=== PATIENT | female | born 1995 | race Caucasian/White ===

== ENCOUNTER → 2017-03-25 09:51 | Outpatient (CLI) | payer BC, SELFPAY ==
[2017-03-25 11:21] LABS: Hematocrit 33.6 % (37-47); Hemoglobin 10.8 g/dl (12.0-15.0); Mean Corp Hgb Conc 32.1 g/gl (32-36); Mean Corpuscular Hgb 28.1 pg (27.0-32.0); Mean Corpuscular Volume 87.5 fL (81-99); Platelet Count 318 K/mm3 (150-450); RBC Distribution Width CV 12.7 % (11.6-14.6); RBC Distribution Width SD 40.9 fl (35.1-43.9); Red Blood Count 3.84 M/mm3 (4.2-5.4)
[2017-03-25 11:26] LABS: Scan Indicated on CBC? Y/N NO
[2017-03-25 11:42] LABS: Glucose Challenge Gest 1H 50g 95 mg/dL (70-140)
== END ==
LOC: MFPLAB 09:52 → WOBLAB 12:15
PROVIDERS: Visit Provider Obstetrics & Gynecology
DX: Z34.83 Encounter for supervision of other normal pregnancy, third trimester (principal)
CPT/HCPCS: 36415; 82950; 85027

== ENCOUNTER 2017-04-18 13:55 | Outpatient (CLI) | payer BC, SELFPAY ==
[2017-04-18 14:13] VITALS: BMI 20.2
--- NOTE | 2017-04-19 07:49 | OB.TRI.NOTE ---
History of Present Illness Date of Service: 04/18/17 Was patient seen by the physician?: No Reason For Visit: R/O LABOR Date of Service: 04/18/17 Final DINA: 06/17/17 Gestational age: 31 Weeks and 4 Days Home Medications Medication Instructions Recorded Tablet 2 tab PO DAILY 04/18/17 Allergies No Known Allergies Allergy (Verified 04/18/17 14:15) Physical Exam General: Alert, Oriented x3, Cooperative, No apparent distress Cardiovascular: Regular rate, Regular Rhythm Lungs: Clear to auscultation, Normal air movement Abdomen: Soft, Non Tender, Non-Distended, Gravid, Appropriate for Gestational Age Extremities:: No edema Estimated gestational size: Appropriate for gestational size NST - FHR Rate Baby A Baseline: 130 Variability:: Moderate Accelerations:: 15 x 15 Decelerations:: None NST Reactive:: Yes FHR Category:: Category I Uterine Activity:: none Impression/Plan Observed for epigastric pain not taking Tums. Vague lower abdominal pressure. No contractions. NST reassuring. Sent home.
== END 2017-04-18 15:35 | disposition home or self-care (01) ==
LOC: WPOUT 14:03 → WP 14:05
PROVIDERS: Visit Provider Obstetrics & Gynecology
DX: O26.893 Other specified pregnancy related conditions, third trimester (principal); R10.13 Epigastric pain; Z3A.31 31 weeks gestation of pregnancy
CPT/HCPCS: 59025; 59050; 99218; G0378

== ENCOUNTER → 2017-05-20 10:33 | Outpatient (CLI) | payer BC, SELFPAY | PROVIDERS: Visit Provider Obstetrics & Gynecology | DX: Z36.85 Encounter for antenatal screening for Streptococcus B (principal) | CPT/HCPCS: 87081 ==

== ENCOUNTER 2017-06-15 23:42 | Inpatient (IN) | payer BC, MEDICAID, SELFPAY ==
[2017-06-16] VITALS (19 sets, daily range): BP systolic 99–123; BP diastolic 56–77; PULSE 86–107; RESP 15–26; TEMP 36.8–37.8; O2SAT 95–99; BMI 22.8
--- NOTE | 2017-06-16 | PLAC_PTH ---
PATIENT: JENNY DASH LOC: [facility] U#:[id number] AGE/SX: ROOM: WP017 RE06/15/[address]: Dr. Tyesha Cristina MD : 1995 BED: 1 DIS: 06/19/2017 SPEC #: [id number] RECD: 06/17/17 11:53 STATUS: HEBER RERay #: [id number] PATRICIA: 06/16/17 00:[address]: Tyesha Cristina DEPT: SURGICAL PATHOLOGY RECD BY: Ronnie Renner ENTERED: 06/17/17 11:53 SP TYPE: PLACENTA OT DR: No Primary Care Phys Tissues: Placenta, NOS Procedures: Surgery Specimen Level V HEADER OPERATION: Primary section PRE-OP DIAGNOSIS: Cephalopelvic disproportion TISSUE SUBMITTED: Placenta MICROSCOPIC DIAGNOSIS Garcia placenta (374 gm): Umbilical cord ? trivascular with focal acute funisitis. Placental membranes ? acute deciduitis and acute chorionitis. Placental disc ? acute inflammation of superficial placental vessels, Kadi-Terrence change and increased intraparenchymal fibrin plaques. AM:kenneth 06/21/17 MICROSCOPIC DESCRIPTION Slides are reviewed. GROSS DESCRIPTION SPECIMEN: PLACENTA / CLINICAL INFORMATION: A. Weight: 3.243 kg B. Gestational Age: 39 weeks C. Sex: Female PLACENTAL WEIGHT (POST FIXATION): 374 gm PLACENTAL DIMENSIONS: 15 x 14 x 2.5 cm PLACENTAL SHAPE: Usual ovoid PLACENTAL WEIGHT FOR GESTATIONAL AGE: Within 10-99th percentile MEMBRANES - Present A. Insertion: Marginal B. Site of rupture from edge: Distance of the rupture cannot be assessed due to fragmented nature of the membranes. C. Color of membrane: Rodrigues-san and fragmented. The detached fragment of membrane is also noted in the container. D. Abnormalities: None UMBILICAL CORD - Present A. Color: Rodrigues-san B. Insertion: Paracentral C. Length: 24 cm D. Diameter: 1.3 cm E. Number of vessels: Three F. Abnormalities: None PLACENTAL DISC - Present A. Color of surface: Rodrigues-san B. surface abnormalities: None C. Maternal cotyledons: Intact with minimal tears D. Attached retro placental clot: No clot E. Cut surface: Dark red and spongy F. Lesions: None G. Separate clot: Absent SECTIONS SUBMITTED: 1. Membrane roll 2. Cord, maternal end 3. Cord, end 4. Placental disc, and maternal surfaces 5. Placental disc, and maternal surfaces 6. Placental disc, and maternal surfaces SJ:kenneth 06/18/17 TC:2 CPT: 87665
[2017-06-16] MEDS: Lactated Ringers 1,000 ML 50 ML IV ×4 (00:07→07:43)
[2017-06-16 00:22] LABS: Hematocrit 31.5 % (37-47); Hemoglobin 9.8 g/dl (12.0-15.0); Mean Corp Hgb Conc 31.1 g/gl (32-36); Mean Corpuscular Hgb 24.4 pg (27.0-32.0); Mean Corpuscular Volume 78.4 fL (81-99); Mean Platelet Vol. 9.7 fl (6.2-12.0); Platelet Count 366 K/mm3 (150-450); RBC Distribution Width SD 39.1 fl (35.1-43.9); Red Blood Count 4.02 M/mm3 (4.2-5.4); White Blood Count 15.6 K/mm3 (4.4-11.0)
[2017-06-16 00:25] LABS: Scan Indicated on CBC? Y/N NO
[2017-06-16] MEDS: fentaNYL-bupivacaine (epidural) 100 ML BAG EPIDURAL (01:42)
[2017-06-16] MEDS: Ondansetron 4 MG/2 ML Vial IV (03:10)
--- NOTE | 2017-06-16 07:19 | PCM.PN.BLA ---
Progress Note LABOR PROGRESS NOTE Comfortable w/ epidural. Complete at 0630 am / +2 Pushing. A/P: term IUP Progress to complete after AROM. Anticipate
--- NOTE | 2017-06-16 07:54 | NURSING ---
Dr. Saeed notified at 0043 by [facility] RN that patient would like an epidural. Dr. Saeed then notified again verbally by this RN at 0115. Dr. Saeed upset and states that she was not notified directly by this RN. Dr. Saeed arrived to room at 0119.
[2017-06-16] MEDS: Oxytocin 30 units/NS 500 ml 30 UNITS/500 ML IV.SOLN IV (09:28)
--- NOTE | 2017-06-16 10:28 | PCM.PN.BLA ---
Progress Note LABOR PROGRESS NOTE Complete since 630. and pushing since 644 (approx) but with UCs as widely spaced as a 7 mins. AVSS Pitocin augmentation added EFM category I tracing. 130-140s avg variability accels. UCs q 3-8 mins. C and P A/P: term IUP. AROM. Pitocin augmentation started to inc frequency of Ucs. Continue pushing. Watch progress, descent. Anticipate
--- NOTE | 2017-06-16 12:08 | PCM.PN.BLA ---
Progress Note LABOR PROGRESS NOTE Complete since 06 pushing off and on for 4-5 hrs NO DESCENT. Direct OP. Palpable maternal coccyx on exam. Still able to insert FT anterior to vtx despite pushing / resting after complete for 4-5 hrs. A/P: advised c section delivery indicated for failure to descend. OB aware, anesthesia and BUCKLE WIRE INSERTER aware.
--- NOTE | 2017-06-16 12:11 | PN_ITS ---
Progress Note LABOR PROGRESS NOTE Complete since 06 pushing off and on for 4-5 hrs NO DESCENT. Direct OP. Palpable maternal coccyx on exam. Still able to insert FT anterior to vtx despite pushing / resting after complete for 4-5 hrs. A/P: advised c section delivery indicated for failure to descend. OB aware, anesthesia and [employer] aware.
--- NOTE | 2017-06-16 12:26 | PCM.DCCSEC ---
Discharge Diet: No Restrictions Discharge Activity: May not drive while taking narcotic pain medications., May Shower, May Take a Tub Bath Return to work on:: 08/02/17 May resume sexual activity in: 4-6 weeks Lifting Restrictions: 20 pounds Additional Activity Instructions:: Nothing in the vagina for 4-6 weeks. You may return to work/school in 6 weeks. Change Dressing in (Days):: 4 Remove Dressing in (days):: 4 Cleanse incision/area with: Soap & Water, Keep Dressing Clean & Dry Additional Instructions: If you experience any of the following, contact your healthcare provider. Bleeding that soaks a pad every hour for 2 hours Fever 100.4 or higher Unrelieved incision or abdominal pain Swelling, redness, discharge or bleeding from your incision Problems urinating (including inability to urinate or burning while urinating). Visual changes Severe headache Flu-like symptoms Pain or redness in one of both of your breasts Pain, warmth, tenderness or swelling in your legs, especially the calf area Frequent nausea and vomiting Symptoms of depression or anxiety If you experience any of the following, call 911 or go to the nearest Emergency Room. Chest pain Problems breathing Seizure activity Partial or complete paralysis of a body part, slurred speech, weakness or drooping of the face, or a sudden inability to walk or hold your balance Allergies/Adverse Reactions: Allergies No Known Allergies Allergy (Verified 04/18/17 14:15) Medications to take at Discharge Tablet 2 tab PO DAILY 04/18/17 Acetaminophen [Tylenol Tablet] 325 - 650 mg PO Q4H PRN PRN tablet 06/16/17 Docusate Sodium [Colace] 100 mg PO BID #60 cap 06/16/17 Naproxen [Naprosyn] 250 - 500 mg PO TID PRN #30 tab 06/16/17 Oxycodone [Oxyir] 5 - 10 mg PO Q6H PRN PRN 7 Days #28 tablet 06/16/17 The following prescriptions were given: Oxycodone [Oxyir] 5 - 10 mg PO Q6H PRN PRN 7 Days #28 tablet PRN Reason: Mod-Severe Pain (4-12/08) Docusate Sodium [Colace] 100 mg PO BID #60 cap Naproxen [Naprosyn] 250 - 500 mg PO TID PRN #30 tab PRN Reason: Mild-Mod Pain (1-5/10) Orders to be completed after discharge: Electric breast pump Time Frame: 1 Year, Location: None Selected Follow-Up: Call to make an appointment with your doctor for an incision check in 1-2 weeks. You will also need a 6 week post- follow up appointment. Please Follow Up With: Tyesha Cristina MD - [phone] When: Call to make an appointment for an incision check in 2 weeks. Primary Care Physician: Care Physician,No Primary [Primary Care Provider] -
[2017-06-16] MEDS: Sodium Citrate/Citric Acid 30 ML UDC PO (12:27)
--- NOTE | 2017-06-16 12:31 | DCINST_ITS ---
Discharge Diet: No Restrictions Discharge Activity: May not drive while taking narcotic pain medications., May Shower, May Take a Tub Bath Return to work on:: 08/02/17 May resume sexual activity in: 4-6 weeks Lifting Restrictions: 20 pounds Additional Activity Instructions:: Nothing in the vagina for 4-6 weeks. You may return to work/school in 6 weeks. Change Dressing in (Days):: 4 Remove Dressing in (days):: 4 Cleanse incision/area with: Soap & Water, Keep Dressing Clean & Dry Additional Instructions: If you experience any of the following, contact your healthcare provider. * Bleeding that soaks a pad every hour for 2 hours * Fever 100.4 or higher * Unrelieved incision or abdominal pain * Swelling, redness, discharge or bleeding from your incision * Problems urinating (including inability to urinate or burning while urinating) . * Visual changes * Severe headache * Flu-like symptoms * Pain or redness in one of both of your breasts * Pain, warmth, tenderness or swelling in your legs, especially the calf area * Frequent nausea and vomiting * Symptoms of depression or anxiety If you experience any of the following, call 911 or go to the nearest Emergency Room. * Chest pain * Problems breathing * Seizure activity * Partial or complete paralysis of a body part, slurred speech, weakness or drooping of the face, or a sudden inability to walk or hold your balance Allergies/Adverse Reactions: Allergies No Known Allergies Allergy (Verified 04/18/17 14:15) Medications to take at Discharge Tablet 2 tab PO DAILY 04/18/17 Acetaminophen [Tylenol Tablet] 325 - 650 mg PO Q4H PRN PRN tablet 06/16/17 Docusate Sodium [Colace] 100 mg PO BID #60 cap 06/16/17 Naproxen [Naprosyn] 250 - 500 mg PO TID PRN #30 tab 06/16/17 Oxycodone [Oxyir] 5 - 10 mg PO Q6H PRN PRN 7 Days #28 tablet 06/16/17 The following prescriptions were given: Oxycodone [Oxyir] 5 - 10 mg PO Q6H PRN PRN 7 Days #28 tablet PRN Reason: Mod-Severe Pain (-12/08) Docusate Sodium [Colace] 100 mg PO BID #60 cap Naproxen [Naprosyn] 250 - 500 mg PO TID PRN #30 tab PRN Reason: Mild-Mod Pain (1-5/10) Orders to be completed after discharge: Electric breast pump Time Frame: 1 Year, Location: None Selected Follow-Up: Call to make an appointment with your doctor for an incision check in 1-2 weeks. You will also need a 6 week post- follow up appointment. Please Follow Up With: Tyesha Cristina MD - [phone] When: Call to make an appointment for an incision check in 2 weeks. Primary Care Physician: Care Physician,No Primary [Primary Care Provider] -
[2017-06-16] MEDS: Oxytocin 30 units/NS 500 ml 30 UNITS/500 ML IV.SOLN 167 UNITS IV (12:46)
--- NOTE | 2017-06-16 13:23 | PCM.OP.BLANK ---
Operative Report Date of Procedure: 06/16/17 PROCEDURE: PRIMARY C SECTION Preoperative diagnosis: 39 6/7 wk EGA Cephalopelvic disproportion Postop diagnosis: 39 6/7 wk EGA Cephalopelvic disproportion Direct OP, deeply wedged into maternal pelvis Anesthesia: Epidural per Gabby Anderson CRNA then General anesthesia Surgeon: Tyseha Cristina MD Health Inspector Food: JENNIFER Ramirez EBL: 600 cc Complications: none Drains: Rutledge draining clear yellow urine Fluids: replacement LR Findings: At amniotomy, clear fluid was noted. Garcia viable female VTX presentation, deeply wedged direct OP into maternal pelvis. Apgars 2/8/9, Baby weight: pending. There were normal appearing uterus, fallopian tubes and ovaries bilaterally. PATH: Routine cord gases Narrative account: After the risks, benefits and alternatives of the procedure were reviewed with the patient , informed consent was obtained. The patient was taken to the Operating room with an IV running, a Rutledge catheter and epidural catheter in place. Her labor epidural was dosed to surgical levels. She was placed in dorsal supine position with leftward displacement of the uterus , briefly frog-legged for vaginal vault prep (in labor, ROM) under sterile technique, and then repositioned again to dorsal supine position with leftward displacement of the uterus, and prepped and draped in the usual sterile fashion. Once the epidural was deemed adequate, a Pfannenstiel skin incision was created using the knife . The incision was carried down to the rectus fascia using the knife. The fascia was nicked in the midline. The fascial incision was extended bilaterally using curved Mosquera scissors. The superior aspect of the fascial incision was grasped with Nallely clamps and tented up and the underlying rectus abdominal muscles were dissected free. In a similar manner, the inferior aspect of the facial incision was grasped with Nallely clamps tented up and the underlying rectus abdominal muscles were dissected free. The rectus abdominis muscles were by blunt and sharp dissection . The peritoneum was identified and entered by blunt dissection. The peritoneal incision was then extended inferiorly and superiorly using Metzenbaum scissors. The peritoneum was stretched laterally and a bladder blade was inserted. The uterine incision was then created using Metzenbaum scissors.The uterine incision was extended by blunt dissection in a caudad- cephalad orientation using the jig grinder set up operator's fingertips. Clear fluid was noted at amniotomy. The vertex was deeply wedged into the maternal pelvis. Pressure was applied from below and an attempt was made to deliver the vtx through the incision but the neck would not flex. An attempt was made again from the contralateral side of the operating table. The baby's shoulders were pushed up and the baby's shoulders rotated slightly Nitrous was given in an attempt to relax the uterus, and the patient was then give general anesthesia. The suction was broken, releasing the VTX from the pelvis and additional room was then created in the abdomen by dividing the R rectus abdominis muscle by Bandage scissors. The VTX was then ultimately delivered. The baby had poor tone, no respiratory effort. The cord was clamped x two and cut and was quickly passed off to the nurse awaiting delivery and to Dr. Miranda present for delivery. The umbilical cord was doubly clamped for later cord gas and cord blood collection as indicated. The placenta was then delivered. The uterus was exteriorized and cleared of clots and debris . The uterine incision was repaired with 1 Vicryl in a running locked fashion. A second imbricating layer was then placed, using 1 Monocryl in running nonlocked fashion. There was a small hematoma extending at the R uterine angle. this area was oversewn with a figure of 8 stitch of 1 Vicryl as needed for hemostasis and to stabilize the hematoma. The hematoma then remained soft and excellent hemostasis was noted. The uterus, fallopian tubes and ovaries were then inspected and returned to the abdominal cavity. The gutters were cleared of clots and debris. The uterine incision and fallopian tubes were again inspected. Excellent hemostasis was noted. The pelvis and abdomen were copiously irrigated. The incision sprayed with Micah. The rectus abdominis and peritoneal edges were reapproximated in the midline with interrupted vertical mattress stitches of 1 Vicryl . The R rectus abdominis muscle was repaired with a series of figure of eight and mattress stitches of 1-0 vicryl. Excellent hemostasis was noted. Excellent hemostasis was noted at the subfascial space The layer was sprayed with Micah at the inferior aspect. The fascia was closed in a running nonlocked fashion with strattofix suture. The Subcutaneous fatty tissue was Bovie cauterized as needed for hemostasis. This layer was then reapproximated with a nonlocked running 3-0 Vicryl. The skin edges were closed in a Subcuticular stitch of 4-0 Monocryl. The incision was cleansed. Seri-strips, and a sterile dressing (Mepilex) were applied. The patient was then transferred to the recovery room bed in stable condition after tolerating the procedure well. Sponge, lap, needle and instrument counts correct times two. Medications given preop and intraoperatively included: Ancef two grams IV given tonsorial artist to the operating room. The patient also received Pitocin given IV after cord clamp, and Toradol 30 mg IV after cord clamp. For a complete listing of medications given preop and intraoperatively, please see the anesthesia record.
--- NOTE | 2017-06-16 13:26 | CHAPLAIN ---
responded to rapid response for this patient; RR was called off as this shipping/receiving clerk approached the WP;
--- NOTE | 2017-06-16 13:34 | OP.PCM_ITS ---
Operative Report Date of Procedure: 06/16/17 PROCEDURE: PRIMARY C SECTION Preoperative diagnosis: 39 6/7 wk EGA Cephalopelvic disproportion Postop diagnosis: 39 6/7 wk EGA Cephalopelvic disproportion Direct OP, deeply wedged into maternal pelvis Anesthesia: Epidural per Gabby Anderson CRNA then General anesthesia Surgeon: Tyesha Cristina MD Release Of Information Specialist: JENNIFER Ramirez EBL: 600 cc Complications: none Drains: Rutledge draining clear yellow urine Fluids: replacement LR Findings: At amniotomy, clear fluid was noted. Garcia viable female VTX presentation, deeply wedged direct OP into maternal pelvis. Apgars 2/8/9, Baby weight: pending. There were normal appearing uterus, fallopian tubes and ovaries bilaterally. PATH: Routine cord gases Narrative account: After the risks, benefits and alternatives of the procedure were reviewed with the patient , informed consent was obtained. The patient was taken to the Operating room with an IV running, a Rutledge catheter and epidural catheter in place. Her labor epidural was dosed to surgical levels. She was placed in dorsal supine position with leftward displacement of the uterus , briefly frog- legged for vaginal vault prep (in labor, ROM) under sterile technique, and then repositioned again to dorsal supine position with leftward displacement of the uterus, and prepped and draped in the usual sterile fashion. Once the epidural was deemed adequate, a Pfannenstiel skin incision was created using the knife . The incision was carried down to the rectus fascia using the knife. The fascia was nicked in the midline. The fascial incision was extended bilaterally using curved Mosquera scissors. The superior aspect of the fascial incision was grasped with Nallely clamps and tented up and the underlying rectus abdominal muscles were dissected free. In a similar manner, the inferior aspect of the facial incision was grasped with Nallely clamps tented up and the underlying rectus abdominal muscles were dissected free. The rectus abdominis muscles were by blunt and sharp dissection . The peritoneum was identified and entered by blunt dissection. The peritoneal incision was then extended inferiorly and superiorly using Metzenbaum scissors. The peritoneum was stretched laterally and a bladder blade was inserted. The uterine incision was then created using Metzenbaum scissors.The uterine incision was extended by blunt dissection in a caudad- cephalad orientation using the dye house wheel operator's fingertips. Clear fluid was noted at amniotomy. The vertex was deeply wedged into the maternal pelvis. Pressure was applied from below and an attempt was made to deliver the vtx through the incision but the neck would not flex. An attempt was made again from the contralateral side of the operating table. The baby's shoulders were pushed up and the baby's shoulders rotated slightly Nitrous was given in an attempt to relax the uterus, and the patient was then give general anesthesia. The suction was broken, releasing the VTX from the pelvis and additional room was then created in the abdomen by dividing the R rectus abdominis muscle by Bandage scissors. The VTX was then ultimately delivered. The baby had poor tone, no respiratory effort. The cord was clamped x two and cut and was quickly passed off to the nurse awaiting delivery and to Dr. Miranda present for delivery. The umbilical cord was doubly clamped for later cord gas and cord blood collection as indicated. The placenta was then delivered. The uterus was exteriorized and cleared of clots and debris . The uterine incision was repaired with 1 Vicryl in a running locked fashion. A second imbricating layer was then placed, using 1 Monocryl in running nonlocked fashion. There was a small hematoma extending at the R uterine angle. this area was oversewn with a figure of 8 stitch of 1 Vicryl as needed for hemostasis and to stabilize the hematoma. The hematoma then remained soft and excellent hemostasis was noted. The uterus, fallopian tubes and ovaries were then inspected and returned to the abdominal cavity. The gutters were cleared of clots and debris. The uterine incision and fallopian tubes were again inspected. Excellent hemostasis was noted. The pelvis and abdomen were copiously irrigated. The incision sprayed with Micah. The rectus abdominis and peritoneal edges were reapproximated in the midline with interrupted vertical mattress stitches of 1 Vicryl . The R rectus abdominis muscle was repaired with a series of figure of eight and mattress stitches of 1-0 vicryl. Excellent hemostasis was noted. Excellent hemostasis was noted at the subfascial space The layer was sprayed with Micah at the inferior aspect. The fascia was closed in a running nonlocked fashion with strattofix suture. The Subcutaneous fatty tissue was Bovie cauterized as needed for hemostasis. This layer was then reapproximated with a nonlocked running 3-0 Vicryl. The skin edges were closed in a Subcuticular stitch of 4-0 Monocryl. The incision was cleansed. Seri-strips , and a sterile dressing (Mepilex) were applied. The patient was then transferred to the recovery room bed in stable condition after tolerating the procedure well. Sponge, lap, needle and instrument counts correct times two. Medications given preop and intraoperatively included: Ancef two grams IV given inspector repairer sandstone to the operating room. The patient also received Pitocin given IV after cord clamp, and Toradol 30 mg IV after cord clamp. For a complete listing of medications given preop and intraoperatively, please see the anesthesia record.
[2017-06-16] MEDS: Ketorolac 30 MG/ML Syringe IV ×2 (14:10→20:15)
[2017-06-16] MEDS: Lactated Ringers 1,000 ML 100 ML IV (15:40)
[2017-06-17] VITALS (8 sets, daily range): BP systolic 95–118; BP diastolic 51–69; PULSE 79–111; RESP 15–18; TEMP 36.8–37.3; O2SAT 97–100
[2017-06-17] MEDS: Lactated Ringers 1,000 ML 100 ML IV (00:40)
[2017-06-17] MEDS: Ketorolac 30 MG/ML Syringe IV ×4 (02:23→20:14)
[2017-06-17 04:44] LABS: Hematocrit 24.4 % (37-47); Hemoglobin 7.6 g/dl (12.0-15.0); Mean Corp Hgb Conc 31.1 g/gl (32-36); Mean Corpuscular Hgb 24.2 pg (27.0-32.0); Mean Corpuscular Volume 77.7 fL (81-99); Platelet Count 266 K/mm3 (150-450); RBC Distribution Width CV 14.3 % (11.6-14.6); RBC Distribution Width SD 38.8 fl (35.1-43.9); Red Blood Count 3.14 M/mm3 (4.2-5.4); White Blood Count 16.3 K/mm3 (4.4-11.0)
[2017-06-17 04:46] LABS: Scan Indicated on CBC? Y/N NO
--- NOTE | 2017-06-17 07:46 | PCM.PN.OB ---
Subjective: POD#1 Primary C section under epidural converted to general anesthesia Doing OK. Breast feeding. Pain control adequate. No concerns voiced. Objective: Sitting semirecumbent in bed. Holding baby. Nursing. Urine concentrated appearance. - Physical Exam General: Alert, Oriented x3, Cooperative, No apparent distress HEENT: Atraumatic Neck: Supple Abdomen: Soft - Uterus minimally tender consistent with postop status, at 3 cm inferior to umbilicus Extremities: No clubbing, No cyanosis, No edema Skin: Incision - Meiplex dressing CDI. no shadow drainage Neurological: Cranial nerves II-XII grossly intact Psych/Mental Status: Normal Affect Vital Signs Temp Pulse Resp BP Pulse Ox 98.9 F 79 16 95/51 L 98 06/17/ 04:00 06/17/17 04:00 06/17/17 04:00 06/17/17 00:00 06/17/17 04:00 Oxygen Delivery Method Room Air Weight: 66.224 kg Body Mass Index (BMI) 22.8 Intake and Output for Last 24 Hours 06/15/18 18/18 18 23:59 23:59 23:59 Intake Total 4969 / 4969 800 / 800 Output Total 1725 / 1725 500 / 500 Balance 3244 / 3244 300 / 300 Laboratory Tests Past 24 Hrs 06/17/17 04:00 WBC 16.3 H RBC 3.14 L Hgb 7.6 L Hct 24.4 L MCV 77.7 L MCH 24.2 L MCHC 31.1 L RDW 14.3 RDW Differential 38.8 Plt Count 266 MPV 10.0 Medical Necessity - Tobacco Use Smoking Status: Never smoker Assessment/Plan POD#1 Primary C section. CPD. Stable postop. Increase diet and activity as tolerated. May shower. Begin po meds, including iron for anemic. D/C garcia for voiding trial Iron deficiency anemia prior to delivery. Superimposed acute blood loss anemia. VSS Will recheck CBC am POD#2 Begin iron bid. Stool softeners. Continue care.
[2017-06-17] MEDS: Ferrous Sulfate 325 MG Tablet PO ×2 (08:19→17:45)
[2017-06-17] MEDS: 0.9% Saline Lock 10 ML Syringe IV ×4 (10:54→20:20)
[2017-06-17] MEDS: Prenatal Vits Tablet 1 TABLET PO (12:43)
[2017-06-17] MEDS: oxyCODONE 5 MG Tablet PO ×2 (18:33→22:25)
[2017-06-17] MEDS: Ondansetron 4 MG/2 ML Vial IV (20:14)
[2017-06-18 02:00] VITALS: BP 105/58; PULSE 84; RESP 17; TEMP 37.2; O2SAT 99
[2017-06-18] MEDS: 0.9% Saline Lock 10 ML Syringe IV ×3 (02:01→14:41)
[2017-06-18] MEDS: Ketorolac 30 MG/ML Syringe IV ×3 (02:01→14:40)
[2017-06-18] MEDS: oxyCODONE 5 MG Tablet PO ×3 (06:03→22:23)
[2017-06-18 06:36] LABS: Hemoglobin 7.7 g/dl (12.0-15.0); Mean Corp Hgb Conc 30.8 g/gl (32-36); Mean Corpuscular Hgb 24.4 pg (27.0-32.0); Mean Corpuscular Volume 79.4 fL (81-99); Mean Platelet Vol. 9.4 fl (6.2-12.0); Platelet Count 280 K/mm3 (150-450); RBC Distribution Width CV 14.6 % (11.6-14.6); RBC Distribution Width SD 40.1 fl (35.1-43.9); Red Blood Count 3.15 M/mm3 (4.2-5.4); White Blood Count 13.9 K/mm3 (4.4-11.0)
[2017-06-18 06:45] LABS: Scan Indicated on CBC? Y/N NO
[2017-06-18] MEDS: Ferrous Sulfate 325 MG Tablet PO ×2 (07:56→16:22)
--- NOTE | 2017-06-18 07:57 | PCM.PN.OB ---
Subjective: POD#2 Primary C/S for CPD. Doing OK. tired. Baby nursing and up a lot at night. Baby under bili lights. Pt's mother planning to stay with her after dischg and will need FMLA note completed. She is to bring in form either here to hospital or to [facility] for completion. pain control OK. Able to go to bathroom ok after catheter removed. - Physical Exam General: Alert, Oriented x3, Cooperative, No apparent distress HEENT: Atraumatic Neck: Supple Abdomen: Soft - Fundus firm , tender c/w postop status , and at approx umbilicus Skin: Incision - Mepilex dressing CDI Neurological: Cranial nerves II-XII grossly intact Psych/Mental Status: Normal Affect Vital Signs Temp Pulse Resp BP Pulse Ox 99.0 F 84 17 105/58 L 99 06/18/17 02:00 06/18/17 02:00 06/18/17 02:00 06/18/17 02:00 06/18/17 02:00 Oxygen Delivery Method Room Air Weight: 66.224 kg Body Mass Index (BMI) 22.8 Intake and Output for Last 24 Hours 06/16/17 06/17/17 06/18/17 23:59 23:59 23:59 Intake Total 4969 / 4969 1795 / 1795 Output Total 1725 / 1725 1600 / 1600 Balance 3244 / 3244 195 / 195 Laboratory Tests Past 24 Hrs 06/18/17 06:15 WBC 13.9 H RBC 3.15 L Hgb 7.7 L Hct 25.0 L MCV 79.4 L MCH 24.4 L MCHC 30.8 L RDW 14.6 RDW Differential 40.1 Plt Count 280 MPV 9.4 Medical Necessity - Tobacco Use Smoking Status: Never smoker Assessment/Plan POD#2 Primary C section. CPD. Stable postop. Iron deficiency anemia prior to delivery. Superimposed acute blood loss anemia. VSS CBC stable. Continue iron bid for one month . Stool softeners. Continue care. Baby under bili lights. Plans to stay until Sat / Sun depending on continued recovery.
[2017-06-18 08:00] VITALS: BP 95/52; PULSE 85; RESP 14; TEMP 37; O2SAT 98
[2017-06-18] MEDS: Prenatal Vits Tablet 1 TABLET PO (11:36)
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
[2017-06-18 14:30] VITALS: BP 117/66; PULSE 89; RESP 14; TEMP 37.1; O2SAT 100
[2017-06-18 22:24] VITALS: BP 112/62; PULSE 86; RESP 16; TEMP 36.9; O2SAT 99
[2017-06-19 02:00] VITALS: BP 115/62; PULSE 80; RESP 16; TEMP 37.2; O2SAT 98
[2017-06-19] MEDS: Naproxen 250 MG Tablet PO (02:33)
--- NOTE | 2017-06-19 08:32 | PCM.PN.OB ---
Subjective: POD# Primary C/S for CPD Doing well. Nursing. Would like to go home later today. Pain control adequate . Baby no longer under bili lights. - Physical Exam General: Alert, Oriented x3, Cooperative, No apparent distress HEENT: Atraumatic Neck: Supple Abdomen: Soft - Fundus firm NT at 2-3 cm inferior to umbilicus Skin: Incision - Mepilex CDI. (will remove at home) Psych/Mental Status: Normal Affect Vital Signs Temp Pulse Resp BP Pulse Ox 98.9 F 80 16 115/62 98 06/19/17 02:00 06/19/17 02:00 06/19/17 02:00 06/19/17 02:00 06/19/17 02:00 Oxygen Delivery Method Room Air Weight: 66.224 kg Body Mass Index (BMI) 22.8 Intake and Output for Last 24 Hours 06/17/17 06/18/17 06/19/17 23:59 23:59 23:59 Intake Total 1795 / 1795 Output Total 1600 / 1600 Balance 195 / 195 Medical Necessity - Tobacco Use Smoking Status: Never smoker Assessment/Plan POD#3 Primary C section. CPD. Stable postop. Dischg home today. RTO in 2 wk for postop check. Iron deficiency anemia prior to delivery. Superimposed acute blood loss anemia. VSS CBC stable. Continue iron bid for one month . Stool softeners.
--- NOTE | 2017-06-19 08:36 | PCM.DC.SUM ---
Discharge Date and Diagnosis Date of Admission: 06/16/17 - labor Date of Discharge: 06/19/17 - S/P primary C Section for CPD Hospital Course and Treatment Operations: - - augmentation of labor. Primary C section for CPD. Summary of Care Provided: The patient is a 22 year old female at 39 6/7 wk presents in labor at 7 cm. Admitted. Epidural placed. AROM and pitocin augmentation of labor resulted in complete and pushing for 4-5 hrs with NO descent beyond -1 Vtx directly OP and deeply wedged into maternal pelvis. Advised C/S delivery. C/S performed on 06/16/17. epidural with supplemental nitrous in attempt to relax the uterus for delivery of VTX through incision. Pressure from below by RN and then general anesthesia with division of the R rectus abdominis muscle to allow delivery of VTX through incision. Garcia viable female, with Ap 29. Dr. Purvis present for delivery, and resuscitation Postop course uneventful. Nursing well. Iron deficiency anemia prior to surgery,and now with acute blood loss anemia. Stable and VSS Iron bid planned for one mo . D/C home today. RTO in 2 wk for postop incision check, prn sooner. Discharge Diet: No Restrictions Discharge Activity: May not drive while taking narcotic pain medications., May Shower, May Take a Tub Bath Return to work on:: 08/02/17 May resume sexual activity in: 4-6 weeks Additional Activity Instructions:: Nothing in the vagina for 4-6 weeks. You may return to work/school in 6 weeks. Change Dressing in (Days):: 4 Remove Dressing in (days):: 4 Cleanse incision/area with: Soap & Water, Keep Dressing Clean & Dry Home Medications: Medications to take at Discharge Tablet 2 tab PO DAILY 04/18/17 Acetaminophen [Tylenol Tablet] 325 - 650 mg PO Q4H PRN PRN tablet 06/16/17 Docusate Sodium [Colace] 100 mg PO BID #60 cap 06/16/17 Naproxen [Naprosyn] 250 - 500 mg PO TID PRN #30 tab 06/16/17 Oxycodone [Oxyir] 5 - 10 mg PO Q6H PRN PRN 7 Days #28 tablet 06/16/17 Ferrous Sulfate 325 mg PO BIDCM #60 tab 06/17/17 Following Prescrptions Were Given to Patient: Oxycodone [Oxyir] 5 - 10 mg PO Q6H PRN PRN 7 Days #28 tablet PRN Reason: Mod-Severe Pain (-12/08) Docusate Sodium [Colace] 100 mg PO BID #60 cap Ferrous Sulfate 325 mg PO BIDCM #60 tab Naproxen [Naprosyn] 250 - 500 mg PO TID PRN #30 tab PRN Reason: Mild-Mod Pain (-07/08) Other Amb Orders: Electric breast pump Time Frame: 1 Year, Location: None Selected Primary Care Physician: Care Physician,No Primary [Primary Care Provider] - Please Follow Up With: Tyesha Cristina MD - [phone] When: Call to make an appointment for an incision check in 2 weeks. Medical Necessity - Tobacco Use Smoking Status: Never smoker Meaningful Use Info Meaningful Use Diagnoses (Choose all that apply): None applicable
[2017-06-19 10:00] VITALS: BP 102/59; PULSE 70; RESP 16; TEMP 36.8
[2017-06-19] MEDS: Ferrous Sulfate 325 MG Tablet PO (14:01)
[2017-06-19] MEDS: Prenatal Vits Tablet 1 TABLET PO (14:02)
[2017-06-20 06:33] LABS: Pathology Specimen OB SEE PATHOLOGY REPORT
[2017-06-20 06:33] LABS: Pathology Specimen OB SEE PATHOLOGY REPORT
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
== END 2017-06-19 17:00 | disposition home or self-care (01) | DRG 765 ==
PROVIDERS: Admitting Provider Obstetrics & Gynecology; Visit Provider Obstetrics & Gynecology
DX: O64.8XX0 Obstructed labor due to other malposition and malpresentation, not applicable or unspecified (principal); D62 Acute posthemorrhagic anemia; O33.9 Maternal care for disproportion, unspecified; O99.02 Anemia complicating childbirth; D50.9 Iron deficiency anemia, unspecified; Z37.0 Single live birth; Z3A.39 39 weeks gestation of pregnancy; Z87.440 Personal history of urinary (tract) infections
CPT/HCPCS: 59025; 59050; 85027; 86850; 86900; 88307; 94762; 99218; J7120; A4216; G0378; J2405

== ENCOUNTER → 2017-07-27 12:09 | Outpatient (CLI) | payer BC, MEDICAID, SELFPAY ==
[2017-07-29 09:32] LABS: HPV Reflexed? NOT INDICATED
== END ==
PROVIDERS: Visit Provider Obstetrics & Gynecology
DX: Z12.4 Encounter for screening for malignant neoplasm of cervix (principal)
CPT/HCPCS: 88175; G0145

== ENCOUNTER 2017-08-24 20:00 | Outpatient (CLI) | payer BC, MEDICAID, SELFPAY | END 2017-08-24 20:45 | disposition home or self-care (01) | LOC: WPOUT 20:04 → WP 20:05 | PROVIDERS: Visit Provider Obstetrics & Gynecology | DX: Z39.1 Encounter for care and examination of lactating mother (principal) | CPT/HCPCS: 96152 ==

== ENCOUNTER → 2018-01-25 16:34 | Outpatient (CLI) | payer BC, SELFPAY ==
[2017-06-16 00:02] VITALS: BMI 22.8
[2018-01-25 19:07] LABS: Chlamydia Trachomatis by PCR Negative (Negative); Neisserai gonorrhoeae by PCR Negative (Negative); Probe Check PASS; Sample Adequacy Control PASS; Specimen Processing Control PASS
--- OUTSIDE RECORDS SUMMARY | 2018-03-23 09:12 | XMS RPT_ITS ---
:1995 Author Organization OHIP Care Team Providers Name Role Phone Tyesha Cristina Attending Unavailable Baldo Mora Attending Unavailable Primay Care Physicia, No Primary Care Unavailable Tyesha Cristina Attending Unavailable Tyesha Cristina Admitting Unavailable Tyesha Cristina Attending Unavailable Primay Care Physicia, No Primary Care Unavailable Tyesha Cristina Attending Unavailable Tyesha Cristina Referring Unavailable Primay Care Physicia, No Primary Care Unavailable Tyesha Cristina Attending Unavailable Primay Care Physicia, No Primary Care Unavailable Ibeth, Tyesha Attending Unavailable Primay Care Physicia, No Primary Care Unavailable PROBLEMS PROBLEMS DATE TYPE CONDITION / CODE ATTENDING STATUS SOURCE 01/26/2018 Unknown Z11.3 - Encounter Tyesha Cristina Active [place] for screening for Community infections with a Hospital predominantly Repository sexual mode of transmission / Z11.3(ICD-10) 01/26/2018 Unknown Z34.82 - Encounter Tyesha Cristina Active [place] for supervision of Community other normal Hospital , second Repository trimester / Z34.82(ICD-10) 06/19/2017 Unknown O82 - Encounter for Tyesha Cristina Active [place] delivery Community without indication Hospital / O82(ICD-10) Repository 06/19/2017 Unknown R10.9 - Unspecified Tyesha Cristina Active [place] abdominal pain / Community R10.9(ICD-10) Hospital Repository 05/20/2017 Unknown Z36.85 - Encounter Tyesha Cristina Active [place] for Community screening for Hospital Streptococcus B / Repository Z36.85(ICD-10) PROCEDURES PROCEDURES No Procedure Records FoundRESULTS RESULTS PROGRESS Observed: 02/06/2018 Status: COMPLETED Source: [place] 1:40 PM [facility] RE[facility] HNO ID: [id number] Author: Armando Blackwood (Pa) Service: (none) Author Type: Physician Machine Pan Greaser Type: Progress Notes Filed: 02/06/2018 1:44 PM Note Text: Subjective HPI Patient presents a chief complaint of nasal congestion, cough, and fevers off-and-on over the past week. She had a sore throat beginning without a way. She is approximately 19 weeks . She denies any abdominal pain. She denies even not had any vomiting. She had some fever however that stopped about 4 days ago. Highest was 101. No urinary complaints. She denies chest pain or shortness of breath. She has been using some children's Dimetapp as well as the equate version [id number]. Her ears have felt like they were popping. She has not a smoker, no history of asthma. Review of Systems Constitutional: Positive for chills and fever. HENT: Positive for congestion, ear pain and sore throat. Eyes: Negative. Respiratory: Positive for cough. Negative for hemoptysis, sputum production, shortness of breath and wheezing. Cardiovascular: Negative. Skin: Negative. All other systems reviewed and are negative. No past medical history on file. Current Outpatient Prescriptions: promethazine (PHENERGAN) 25 mg tablet Take 1 tablet by mouth every 8 hours as needed. Disp: 12 tablet Rfl: 0 phenazopyridine (PYRIDIUM) 200 mg tablet Take 1 tablet by mouth three times daily as needed. (Patient not taking: Reported on 02/06/2018 ) Disp: 15 tablet Rfl: 0 No current facility-administered medications for this visit. No past surgical history on file. No family history on file. Social History Substance Use Topics - Smoking status: Never Smoker - Smokeless tobacco: Not on file - Alcohol use No BP 112/72 Pulse 117 Temp 37.2 ?C (99 ?F) (Tympanic) Resp 14 Wt 53.8 kg (118 lb 9.6 oz) SpO2 99% Objective Physical Exam Constitutional: She is oriented to person, place, and time and well-developed, well-nourished, and in no distress. HENT: Head: Normocephalic and atraumatic. Right Ear: Tympanic membrane, external ear and ear canal normal. Left Ear: Tympanic membrane, external ear and ear canal normal. Nose: Rhinorrhea present. Mouth/Throat: Uvula is midline, oropharynx is clear and moist and mucous membranes are normal. No oropharyngeal exudate, posterior oropharyngeal edema, posterior oropharyngeal erythema or tonsillar abscesses. Neck: Normal range of motion. Neck supple. Cardiovascular: Normal rate and regular rhythm. Pulmonary/Chest: Effort normal and breath sounds normal. Lymphadenopathy: She has no cervical adenopathy. Neurological: She is alert and oriented to person, place, and time. Skin: Skin is warm and dry. No rash noted. Psychiatric: Affect and judgment normal. Nursing note and vitals reviewed. ASSESSMENT/PLAN: 1. Viral URI with cough - ICD9: 465.9, ICD10: J06.9, B97.89 (primary diagnosis) - Discussed viral etiology and rationale for treatment. - Symptomatic treatment with prn analgesia - Supportive care with fluids and rest - Follow up in one week if symptoms persist or sooner if worsening of symptoms -Given less than appropriate cough cold medications for women. 2. Nausea - ICD9: 787.02, ICD10: R11.0 Given phenergan. Follow up with obgyn. Armando Blackwood PA-C CNOV Observed: 02/06/2018 Status: COMPLETED Source: [place] 1:15 PM [facility] REPOSITORY Office Visit (WSTR) JENNY DASH ([id number]) 1995 F T Date Time Provider Department 02/06/18 1:15 PM ARMANDO BLACKWOOD) [facility] During your visit today, we recorded the following information about you: Temperature Pulse Respiration Blood pressure 99 degrees 117/minute 14/minute 112/72 Weight 53.8 kg Armando Blackwood PA-C 02/06/2018 1:44 PM Signed Subjective HPI Patient presents a chief complaint of nasal congestion, cough, and fevers off-and-on over the past week. She had a sore throat beginning without a way. She is approximately 19 weeks . She denies any abdominal pain. She denies even not had any vomiting. She had some fever however that stopped about 4 days ago. Highest was 101. No urinary complaints. She denies chest pain or shortness of breath. She has been using some children's Dimetapp as well as the equate version [id number]. Her ears have felt like they were popping. She has not a smoker, no history of asthma. Review of Systems Constitutional: Positive for chills and fever. HENT: Positive for congestion, ear pain and sore throat. Eyes: Negative. Respiratory: Positive for cough. Negative for hemoptysis, sputum production, shortness of breath and wheezing. Cardiovascular: Negative. Skin: Negative. All other systems reviewed and are negative. No past medical history on file. Current Outpatient Prescriptions: promethazine (PHENERGAN) 25 mg tablet Take 1 tablet by mouth every 8 hours as needed. Disp: 12 tablet Rfl: 0 phenazopyridine (PYRIDIUM) 200 mg tablet Take 1 tablet by mouth three times daily as needed. (Patient not taking: Reported on 02/06/2018 ) Disp: 15 tablet Rfl: 0 No current facility-administered medications for this visit. No past surgical history on file. No family history on file. Social History Substance Use Topics - Smoking status: Never Smoker - Smokeless tobacco: Not on file - Alcohol use No BP 112/72 Pulse 117 Temp 37.2 ?C (99 ?F) (Tympanic) Resp 14 Wt 53.8 kg (118 lb 9.6 oz) SpO2 99% Objective Physical Exam Constitutional: She is oriented to person, place, and time and well-developed, well-nourished, and in no distress. HENT: Head: Normocephalic and atraumatic. Right Ear: Tympanic membrane, external ear and ear canal normal. Left Ear: Tympanic membrane, external ear and ear canal normal. Nose: Rhinorrhea present. Mouth/Throat: Uvula is midline, oropharynx is clear and moist and mucous membranes are normal. No oropharyngeal exudate, posterior oropharyngeal edema, posterior oropharyngeal erythema or tonsillar abscesses. Neck: Normal range of motion. Neck supple. Cardiovascular: Normal rate and regular rhythm. Pulmonary/Chest: Effort normal and breath sounds normal. Lymphadenopathy: She has no cervical adenopathy. Neurological: She is alert and oriented to person, place, and time. Skin: Skin is warm and dry. No rash noted. Psychiatric: Affect and judgment normal. Nursing note and vitals reviewed. ASSESSMENT/PLAN: 1. Viral URI with cough - ICD9: 465.9, ICD10: J06.9, B97.89 (primary diagnosis) - Discussed viral etiology and rationale for treatment. - Symptomatic treatment with prn analgesia - Supportive care with fluids and rest - Follow up in one week if symptoms persist or sooner if worsening of symptoms -Given less than appropriate cough cold medications for women. 2. Nausea - ICD9: 787.02, ICD10: R11.0 Given phenergan. Follow up with obgyn. Armando Blackwood PA-C Referring Provider: SELF [200] Allergies As of Date: 02/06/2018 (No Known Allergies) Date Reviewed: 02/06/2018 Reviewed by: Milagros L Thaddeus Ma - Fully Assessed Reason for Visit: Cough [28] Nausea [70] Headache [52] Pressure In Ear(s) [1122] Primary Visit Diagnosis:Viral URI with cough [J06.9, B97.89] Other Visit Diagnosis:Nausea [R11.0] Order(s):promethazine (PHENERGAN) 25 mg tabletTake 1 tablet by mouth every 8 hours as needed.Disp: 12 tabletRfl: 0 Prescriptions as of 02/06/2018 Sig: PROMETHAZINE 25 MG TABLET Take 1 tablet by mouth every * PHENAZOPYRIDINE 200 MG TABLET Take 1 tablet by mouth three * Patient not taking: Reported on 02/06/2018 Problem List As Of Date: 02/06/2018 (None) Prescriptions ordered this encounter Disp Refills Start End PROMETHAZINE 25 MG TABLET 12 t* 0 02/06/2018 Route: ORAL Sig: Take 1 tablet by mouth every 8 hours as needed. Encounter Status:Closed by ARMANDO BLACKWOOD PA-C on 02/06/18 CT/NG [facility] BY PCR Collected: 01/25/2018 Status: F Source: [place] 2:30 PM [facility] REPOSITORY TYPE CODE TESTS RESULT OUT OF RANGE REFERENCE UNITS LAB L8200.2100 Negative Normal Chlam Negative Trac PCR LAB L8200.2200 Negative Normal NG by Negative PCR Performed By: #### L8200.2000 #### [facility] [address] [place], [address] PAP I-G W/RFX HRHPV Collected: 07/27/2017 Status: F Source: [place] 9:00 AM [facility] REPOSITORY Order Comment: CYTOLOGY INFORMATION: - CLINICAL INFORMATION: - DATE LMP/MENOPAUSE: LMP - COLLECTION VIAL: Thin Prep Vial - OPHTHALMOLOGY ASSISTANT SOURCE: CERVICAL/ENDOCERVICAL - COLLECTION TECHNIQUE: BRUSH/SPATULA Specimen Comment: [id number] Specimen Comment: No. of containers..01 ThinPrep Vial TYPE CODE TESTS RESULT OUT OF RANGE REFERENCE UNITS LAB L7400.0800 . Normal DIAGN Comment Result Comment: NEGATIVE FOR INTRAEPITHELIAL LESION AND MALIGNANCY. LAB L7400.0900 . Normal ADEQ Comment Result Comment: Satisfactory for evaluation. Endocervical and/or squamous metaplastic cells (endocervical component) are present. LAB L7400.1400 . Normal PERFORM Comment Result Comment: Tamica Galicia, Dragline Operator (ASCP) LAB L7400.2575 . Normal TEST METHOD Comment Result Comment: This liquid based ThinPrep(R) pap test was screened with the use of an image guided system. LAB L7400.2600 . Normal . COMM LAB L7400.2700 . Normal PAPSMR Comment Result Comment: The Pap smear is a screening test designed to aid in the detection of premalignant and malignant conditions of the uterine cervix. It is not a diagnostic procedure and should not be used as the sole means of detecting cervical cancer. Both false-positive and false-negative reports do occur. LAB L7400.2800 . Normal HPV RFLX Comment Result Comment: The HPV DNA reflex criteria were not met with this specimen result therefore, no HPV testing was performed. Performed at: [facility] [address] [id number] Telephone Operator Chief: Mary Block MD, Phone: [phone] Performed By: #### L7400.0350 #### [facility] (refer to report for specific site) refer to report for address and phone number DISCHARGE SUMMARY Observed: 06/19/2017 Status: F Source: [place] 8:45 AM [facility] REPOSITORY [facility] Medical Records Department [address] [place] [id number] Discharge Summary 06/19/17 0836 MR#: [id number] Acct: [id number] Name: HARDYJENNY L Rep #: [id number] : 1995 22 From: Tyesha Cristina MD PCP: Care Physician, No Primary Status: ADM IN Y Location: [id number] Discharge Date and Diagnosis Date of Admission: 06/16/17 - labor Date of Discharge: 06/19/17 - S/P primary C Section for CPD Hospital Course and Treatment Operations: - - augmentation of labor. Primary C section for CPD. Summary of Care Provided: The patient is a 22 year old female at 39 6/7 wk presents in labor at 7 cm. Admitted. Epidural placed. AROM and pitocin augmentation of labor resulted in complete and pushing for 4-5 hrs with NO descent beyond -1 Vtx directly OP and deeply wedged into maternal pelvis. Advised C/S delivery. C/S performed on 06/16/17. epidural with supplemental nitrous in attempt to relax the uterus for delivery of VTX through incision. Pressure from below by RN and then general anesthesia with division of the R rectus abdominis muscle to allow delivery of VTX through incision. Garcia viable female, with Ap 2/8/9. Dr. Purvis present for delivery, and resuscitation Postop course uneventful. Nursing well. Iron deficiency anemia prior to surgery,and now with acute blood loss anemia. Stable and VSS Iron bid planned for one mo . D/C home today. RTO in 2 wk for postop incision check, prn sooner. Discharge Diet: No Restrictions Discharge Activity: May not drive while taking narcotic pain medications., May Shower, May Take a Tub Bath Return to work on:: 08/02/17 May resume sexual activity in: 4-6 weeks Additional Activity Instructions:: Nothing in the vagina for 4-6 weeks. You may return to work/school in 6 weeks. Change Dressing in (Days):: 4 Remove Dressing in (days):: 4 Cleanse incision/area with: Soap AND Water, Keep Dressing Clean AND Dry Home Medications: Medications to take at Discharge Tablet 2 tab PO DAILY 04/18/17 Acetaminophen [Tylenol Tablet] 325 - 650 mg PO Q4H PRN PRN tablet 06/16/17 Docusate Sodium [Colace] 100 mg PO BID #60 cap 06/16/17 Naproxen [Naprosyn] 250 - 500 mg PO TID PRN #30 tab 06/16/17 Oxycodone [Oxyir] 5 - 10 mg PO Q6H PRN PRN 7 Days #28 tablet 06/16/17 Ferrous Sulfate 325 mg PO BIDCM #60 tab 06/17/17 Following Prescrptions Were Given to Patient: Oxycodone [Oxyir] 5 - 10 mg PO Q6H PRN PRN 7 Days #28 tablet PRN Reason: Mod-Severe Pain (-12/08) Docusate Sodium [Colace] 100 mg PO BID #60 cap Ferrous Sulfate 325 mg PO BIDCM #60 tab Naproxen [Naprosyn] 250 - 500 mg PO TID PRN #30 tab PRN Reason: Mild-Mod Pain (1-5/10) Other Amb Orders: Electric breast pump Time Frame: 1 Year, Location: None Selected Primary Care Physician: Care Physician,No Primary [Primary Care Provider] - Please Follow Up With: Tyesha Cristina MD - [phone] When: Call to make an appointment for an incision check in 2 weeks. Medical Necessity - Tobacco Use Smoking Status: Never smoker Meaningful Use Info Meaningful Use Diagnoses (Choose all that apply): None applicable 06/19/17 0844 <Electronically signed by Tyesha Cristina MD> Date Tyesha Cristina MD Cosigner Signature (if applicable): Date CC: No Primary Care Physician; Tyesha Cristina MD Signed CBC-COMPLETE BLOOD CNT Collected: 06/18/2017 Status: F Source: [place] NO DIFF 6:15 AM [facility] REPOSITORY TYPE CODE TESTS RESULT OUT OF RANGE REFERENCE UNITS LAB L100.1000 4.4-11.0 K/mm3 High WBC 13.9 LAB L100.1200 4.2-5.4 M/mm3 Low RBC 3.15 LAB L100.1300 12.0-15.0 g/dl Low HGB 7.7 LAB L100.1400 37-47 % Low HCT 25.0 LAB L100.1500 81-99 fL Low MCV 79.4 LAB L100.1600 27.0-32.0 pg Low MCH 24.4 LAB L100.1700 32-36 g/gl Low MCHC 30.8 LAB L100.1810 11.6-14.6 % Normal RDW CV 14.6 LAB L100.1820 35.1-43.9 fl Normal RDW SD 40.1 LAB L100.1900 150-450 K/mm3 Normal PLT 280 LAB L100.2000 6.2-12.0 fl Normal MPV 9.4 Performed By: #### L100.0500 #### [facility] [address] [place], [address] CBC-COMPLETE BLOOD CNT Collected: 06/17/2017 Status: F Source: [place] NO DIFF 4:00 AM [facility] REPOSITORY Order Comment: Comments: Day #1 Reason for Laboratory Test TYPE CODE TESTS RESULT OUT OF RANGE REFERENCE UNITS LAB L100.1000 4.4-11.0 K/mm3 High WBC 16.3 LAB L100.1200 4.2-5.4 M/mm3 Low RBC 3.14 LAB L100.1300 12.0-15.0 g/dl Low HGB 7.6 LAB L100.1400 37-47 % Low HCT 24.4 LAB L100.1500 81-99 fL Low MCV 77.7 LAB L100.1600 27.0-32.0 pg Low MCH 24.2 LAB L100.1700 32-36 g/gl Low MCHC 31.1 LAB L100.1810 11.6-14.6 % Normal RDW CV 14.3 LAB L100.1820 35.1-43.9 fl Normal RDW SD 38.8 LAB L100.1900 150-450 K/mm3 Normal PLT 266 LAB L100.2000 6.2-12.0 fl Normal MPV 10.0 Performed By: #### L100.0500 #### [facility] [address] [place], [address] PATHOLOGY SPECIMEN OB Collected: 06/16/2017 Status: F Source: [place] 4:58 PM [facility] REPOSITORY Order Comment: Send Specimen For (Specify): Studies @ [facility] Lab:Routine Time of Procedure: 1245 Date of Procedure: 06/16/17 Reason specimen being sent to pathology (Hx/complications): PLACENTAL STUDIES Type of specimen: Placenta Type of procedure performed: TYPE CODE TESTS RESULT OUT OF RANGE REFERENCE UNITS LAB L350.1800 SEE Normal PATH. PATHOLOGY Spec. OB REPORT Result Comment: Specimen submitted to Anatomical Pathology Department for testing. Performed By: #### L350.1800 #### [facility] [address] [place], [address] PATHOLOGY SPECIMEN OB Collected: 06/16/2017 Status: F Source: [place] 4:45 PM [facility] REPOSITORY Order Comment: Send Specimen For (Specify): Studies @ [facility] Lab:Routine Time of Procedure: 1245 Date of Procedure: 06/16/17 Reason specimen being sent to pathology (Hx/complications): PRIMARY C SECTION Type of specimen: Placenta Type of procedure performed: Primary Section TYPE CODE TESTS RESULT OUT OF RANGE REFERENCE UNITS LAB L350.1800 SEE Normal PATH. PATHOLOGY Spec. OB REPORT Result Comment: Specimen submitted to Anatomical Pathology Department for testing. Performed By: #### L350.1800 #### [facility] [address] [facility] [place], [address] OPERATIVE REPORT Observed: 06/16/2017 Status: F Source: [place] 1:34 PM [facility] REPOSITORY [facility] Medical Records Department [address] [place] [address] Operative Report 06/16/17 1323 MR#: [id number] Acct: [id number] Name: JENNY DASH Rep #: [id number] : 1995 22 From: Tyesha Cristina MD PCP: Care Physician, No Primary Status: ADM IN Y Location: [id number] Operative Report Date of Procedure: 06/16/17 PROCEDURE: PRIMARY C SECTION Preoperative diagnosis: 39 6/7 wk EGA Cephalopelvic disproportion Postop diagnosis: 39 6/7 wk EGA Cephalopelvic disproportion Direct OP, deeply wedged into maternal pelvis Anesthesia: Epidural per Gabby Anderson FOUNDER AND CHIEF TECHNICAL OFFICER then General anesthesia Surgeon: Tyesha Cristina MD Machine Pan Greaser: JENNIFER Ramirez EBL: 600 cc Complications: none Drains: Rutledge draining clear yellow urine Fluids: replacement LR Findings: At amniotomy, clear fluid was noted. Garcia viable female VTX presentation, deeply wedged direct OP into maternal pelvis. Apgars 2/8/9, Baby weight: pending. There were normal appearing uterus, fallopian tubes and ovaries bilaterally. PATH: Routine cord gases Narrative account: After the risks, benefits and alternatives of the procedure were reviewed with the patient , informed consent was obtained. The patient was taken to the Operating room with an IV running, a Rutledge catheter and epidural catheter in place. Her labor epidural was dosed to surgical levels. She was placed in dorsal supine position with leftward displacement of the uterus , briefly frog-legged for vaginal vault prep (in labor, ROM) under sterile technique, and then repositioned again to dorsal supine position with leftward displacement of the uterus, and prepped and draped in the usual sterile fashion. Once the epidural was deemed adequate, a Pfannenstiel skin incision was created using the knife . The incision was carried down to the rectus fascia using the knife. The fascia was nicked in the midline. The fascial incision was extended bilaterally using curved Mosquera scissors. The superior aspect of the fascial incision was grasped with Nallely clamps and tented up and the underlying rectus abdominal muscles were dissected free. In a similar manner, the inferior aspect of the facial incision was grasped with Nallely clamps tented up and the underlying rectus abdominal muscles were dissected free. The rectus abdominis muscles were by blunt and sharp dissection . The peritoneum was identified and entered by blunt dissection. The peritoneal incision was then extended inferiorly and superiorly using Metzenbaum scissors. The peritoneum was stretched laterally and a bladder blade was inserted. The uterine incision was then created using Metzenbaum scissors.The uterine incision was extended by blunt dissection in a caudad- cephalad orientation using the thermoforming operator's fingertips. Clear fluid was noted at amniotomy. The vertex was deeply wedged into the maternal pelvis. Pressure was applied from below and an attempt was made to deliver the vtx through the incision but the neck would not flex. An attempt was made again from the contralateral side of the operating table. The baby's shoulders were pushed up and the baby's shoulders rotated slightly Nitrous was given in an attempt to relax the uterus, and the patient was then give general anesthesia. The suction was broken, releasing the VTX from the pelvis and additional room was then created in the abdomen by dividing the R rectus abdominis muscle by Bandage scissors. The VTX was then ultimately delivered. The baby had poor tone, no respiratory effort. The cord was clamped x two and cut and was quickly passed off to the nurse awaiting delivery and to Dr. Miranda present for delivery. The umbilical cord was doubly clamped for later cord gas and cord blood collection as indicated. The placenta was then delivered. The uterus was exteriorized and cleared of clots and debris . The uterine incision was repaired with 1 Vicryl in a running locked fashion. A second imbricating layer was then placed, using 1 Monocryl in running nonlocked fashion. There was a small hematoma extending at the R uterine angle. this area was oversewn with a figure of 8 stitch of 1 Vicryl as needed for hemostasis and to stabilize the hematoma. The hematoma then remained soft and excellent hemostasis was noted. The uterus, fallopian tubes and ovaries were then inspected and returned to the abdominal cavity. The gutters were cleared of clots and debris. The uterine incision and fallopian tubes were again inspected. Excellent hemostasis was noted. The pelvis and abdomen were copiously irrigated. The incision sprayed with Micah. The rectus abdominis and peritoneal edges were reapproximated in the midline with interrupted vertical mattress stitches of 1 Vicryl . The R rectus abdominis muscle was repaired with a series of figure of eight and mattress stitches of 1-0 vicryl. Excellent hemostasis was noted. Excellent hemostasis was noted at the subfascial space The layer was sprayed with Micah at the inferior aspect. The fascia was closed in a running nonlocked fashion with strattofix suture. The Subcutaneous fatty tissue was Bovie cauterized as needed for hemostasis. This layer was then reapproximated with a nonlocked running 3-0 Vicryl. The skin edges were closed in a Subcuticular stitch of 4-0 Monocryl. The incision was cleansed. Seri-strips, and a sterile dressing (Mepilex) were applied. The patient was then transferred to the recovery room bed in stable condition after tolerating the procedure well. Sponge, lap, needle and instrument counts correct times two. Medications given preop and intraoperatively included: Ancef two grams IV given harvest contractor to the operating room. The patient also received Pitocin given IV after cord clamp, and Toradol 30 mg IV after cord clamp. For a complete listing of medications given preop and intraoperatively, please see the anesthesia record. 06/16/17 9900 <Electronically signed by Tyesha Cristina MD> Date Tyesha Cristina MD CC: No Primary Care Physician; Tyesha Cristina MD Signed DISCHARGE INSTRUCTION Observed: 06/16/2017 Status: F Source: [place] 12:31 PM [facility] REPOSITORY [facility] Medical Records Department [address] [place] [address] Instructions for Home/Discharge Instructions 06/16/17 1226 MR#: [id number] Acct: [id number] Name: JENNY DASH Rep #: [id number] : 1995 22 From: Tyesha Cristina MD PCP: Care Physician, No Primary Status: ADM IN Discharge Diet: No Restrictions Discharge Activity: May not drive while taking narcotic pain medications., May Shower, May Take a Tub Bath Return to work on:: 08/02/17 May resume sexual activity in: 4-6 weeks Lifting Restrictions: 20 pounds Additional Activity Instructions:: Nothing in the vagina for 4-6 weeks. You may return to work/school in 6 weeks. Change Dressing in (Days):: 4 Remove Dressing in (days):: 4 Cleanse incision/area with: Soap AND Water, Keep Dressing Clean AND Dry Additional Instructions: If you experience any of the following, contact your healthcare provider. * Bleeding that soaks a pad every hour for 2 hours * Fever 100.4 or higher * Unrelieved incision or abdominal pain * Swelling, redness, discharge or bleeding from your incision * Problems urinating (including inability to urinate or burning while urinating). * Visual changes * Severe headache * Flu-like symptoms * Pain or redness in one of both of your breasts * Pain, warmth, tenderness or swelling in your legs, especially the calf area * Frequent nausea and vomiting * Symptoms of depression or anxiety If you experience any of the following, call 911 or go to the nearest Emergency Room. * Chest pain * Problems breathing * Seizure activity * Partial or complete paralysis of a body part, slurred speech, weakness or drooping of the face, or a sudden inability to walk or hold your balance Allergies/Adverse Reactions: Allergies No Known Allergies Allergy (Verified 04/18/17 14:15) Medications to take at Discharge Tablet 2 tab PO DAILY 04/18/17 Acetaminophen [Tylenol Tablet] 325 - 650 mg PO Q4H PRN PRN tablet 06/16/17 Docusate Sodium [Colace] 100 mg PO BID #60 cap 06/16/17 Naproxen [Naprosyn] 250 - 500 mg PO TID PRN #30 tab 06/16/17 Oxycodone [Oxyir] 5 - 10 mg PO Q6H PRN PRN 7 Days #28 tablet 06/16/17 The following prescriptions were given: Oxycodone [Oxyir] 5 - 10 mg PO Q6H PRN PRN 7 Days #28 tablet PRN Reason: Mod-Severe Pain (4-12/08) Docusate Sodium [Colace] 100 mg PO BID #60 cap Naproxen [Naprosyn] 250 - 500 mg PO TID PRN #30 tab PRN Reason: Mild-Mod Pain (1-07/08) Orders to be completed after discharge: Electric breast pump Time Frame: 1 Year, Location: None Selected Follow-Up: Call to make an appointment with your doctor for an incision check in 1-2 weeks. You will also need a 6 week post- follow up appointment. Please Follow Up With: Tyesha Cristina MD - [phone] When: Call to make an appointment for an incision check in 2 weeks. Primary Care Physician: Care Physician,No Primary [Primary Care Provider] - 06/16/17 1231 <Electronically signed by Tyesha Cristina MD> Date Tyesha Cristina MD CC: No Primary Care Physician CBC-COMPLETE BLOOD CNT Collected: 06/16/2017 Status: F Source: [place] NO DIFF 12:10 AM [facility] REPOSITORY TYPE CODE TESTS RESULT OUT OF RANGE REFERENCE UNITS LAB L100.1000 4.4-11.0 K/mm3 High WBC 15.6 LAB L100.1200 4.2-5.4 M/mm3 Low RBC 4.02 LAB L100.1300 12.0-15.0 g/dl Low HGB 9.8 LAB L100.1400 37-47 % Low HCT 31.5 LAB L100.1500 81-99 fL Low MCV 78.4 LAB L100.1600 27.0-32.0 pg Low MCH 24.4 LAB L100.1700 32-36 g/gl Low MCHC 31.1 LAB L100.1810 11.6-14.6 % Normal RDW CV 14.0 LAB L100.1820 35.1-43.9 fl Normal RDW SD 39.1 LAB L100.1900 150-450 K/mm3 Normal PLT 366 LAB L100.2000 6.2-12.0 fl Normal MPV 9.7 Performed By: #### L100.0500 #### [facility] [address] [facility] [place], [address] TYPE AND SCREEN Collected: 06/16/2017 Status: F Source: [place] 12:10 AM [facility] REPOSITORY Order Comment: Reason for Type AND Screen/Red Cells: ROUTINE TYPE CODE TESTS RESULT OUT OF RANGE REFERENCE UNITS LAB B10.0800 A Normal BLOOD TYPE GEL POSITIVE LAB B100.4000 Normal Antibody NEGATIVE Screen Performed By: #### B101.7450 #### [facility] [address] [place], [address] PLACENTA Observed: 06/16/2017 Status: F Source: [place] 12:00 AM [facility] REPOSITORY Patient: JENNY DASH : 1995 () Acct Num: [id number] Phys: Tyesha Cristina MD Unit Num: [id number] Loc: WP [id number] Specimen: [id number] Received: 06/17/17 - 1153 Spec Type: PLACENTA TISSUES TISSUES: Placenta, NOS GROSS DESCRIPTION SPECIMEN: PLACENTA / CLINICAL INFORMATION: A. Weight: 3.243 kg B. Gestational Age: 39 weeks C. Sex: Female PLACENTAL WEIGHT (POST FIXATION): 374 gm PLACENTAL DIMENSIONS: 15 x 14 x 2.5 cm PLACENTAL SHAPE: Usual ovoid PLACENTAL WEIGHT FOR GESTATIONAL AGE: Within 10-99th percentile MEMBRANES - Present A. Insertion: Marginal B. Site of rupture from edge: Distance of the rupture cannot be assessed due to fragmented nature of the membranes. C. Color of membrane: Rodrigues-san and fragmented. The detached fragment of membrane is also noted in the container. D. Abnormalities: None UMBILICAL CORD - Present A. Color: Rodrigues-san B. Insertion: Paracentral C. Length: 24 cm D. Diameter: 1.3 cm E. Number of vessels: Three F. Abnormalities: None PLACENTAL DISC - Present A. Color of surface: Rodrigues-san B. surface abnormalities: None C. Maternal cotyledons: Intact with minimal tears D. Attached retro placental clot: No clot E. Cut surface: Dark red and spongy F. Lesions: None G. Separate clot: Absent SECTIONS SUBMITTED: 1. Membrane roll 2. Cord, maternal end 3. Cord, end 4. Placental disc, and maternal surfaces 5. Placental disc, and maternal surfaces 6. Placental disc, and maternal surfaces SJ: 06/18/17 TC:2 CPT: 33908 HEADER OPERATION: Primary section PRE-OP DIAGNOSIS: Cephalopelvic disproportion TISSUE SUBMITTED: Placenta MICROSCOPIC DESCRIPTION Slides are reviewed. MICROSCOPIC DIAGNOSIS Garcia placenta (374 gm): Umbilical cord trivascular with focal acute funisitis. Placental membranes acute deciduitis and acute chorionitis. Placental disc acute inflammation of superficial placental vessels, Kadi- Terrence change and increased intraparenchymal fibrin plaques. AM: 06/21/17 Signed [facility] 06/21/17 <signature on file> Performed By: #### PPLAC #### [facility] [address] [facility] [place], [address] Observed: 05/20/2017 Status: F Source: [place] CULTURE, GROUP B 9:30 AM [facility] STREPTOCOCCUS REPOSITORY [place] Culture Group B Beta Streptococcus is not isolated. Performed By: #### M100.1800 #### [facility] [address] [place], [place], [address] CBC-COMPLETE BLOOD CNT Collected: 03/25/2017 Status: F Source: [place] NO DIFF 9:46 AM [facility] REPOSITORY TYPE CODE TESTS RESULT OUT OF RANGE REFERENCE UNITS LAB L100.1000 4.4-11.0 K/mm3 Normal WBC 10.0 LAB L100.1200 4.2-5.4 M/mm3 Low RBC 3.84 LAB L100.1300 12.0-15.0 g/dl Low HGB 10.8 LAB L100.1400 37-47 % Low HCT 33.6 LAB L100.1500 81-99 fL Normal MCV 87.5 LAB L100.1600 27.0-32.0 pg Normal MCH 28.1 LAB L100.1700 32-36 g/gl Normal MCHC 32.1 LAB L100.1810 11.6-14.6 % Normal RDW CV 12.7 LAB L100.1820 35.1-43.9 fl Normal RDW SD 40.9 LAB L100.1900 150-450 K/mm3 Normal PLT 318 LAB L100.2000 6.2-12.0 fl Normal MPV 10.0 Performed By: #### L100.0500 #### [facility] [address] [place], [address] GLUCOSE CHALLENGE GEST Collected: 03/25/2017 Status: F Source: [place] 1H 50G 9:46 AM [facility] REPOSITORY TYPE CODE TESTS RESULT OUT OF RANGE REFERENCE UNITS LAB L501.0250 70-140 mg/dL Normal GLU GEST 95 50g 1H Performed By: #### L501.0250 #### [facility] [address] [place], [address] ALLERGIES ALLERGIES DATE TYPE / CODE NAME / CODE REACTION SEVERITY SOURCE 04/18/2017 Drug No Known Unknown [facility] Allergy/416 Allergies/O63834 [facility] 128441(SNOM 0388(RXNORM) Repository ED CT) Drug NO KNOWN [facility] Class/68430 ALLERGIES [place] 1003(SNOMED Repository CT) ENCOUNTERS ENCOUNTERS ADMIT/DISCHARGE ACCOUNT ADMITTING ENCOUNTER LOCATION SOURCE NUMBER CLASS 02/06/2018/02/09/20 [id number] Ambulatory [address] [place] Repository 01/25/2018 [id number] Ambulatory [facility] ing:LABSPEC Repository 08/24/2017/08/25/19 [id number] Ambulatory [address] ing:WPOUT Repository 07/27/2017 [id number] Ambulatory [facility] ing:LAB Repository 06/15/2017/06/20/19 [id number] [place], Inpatient [address] ing:WPRoom: Repository VH359Atu: 1 05/20/2017 [id number] Ambulatory [facility] ing:LABSPEC Repository 04/18/2017/04/18/19 [id number] Ambulatory [address] ing:WPOUTRoom Repository : WP013 03/25/2017 [id number] Ambulatory [facility] ing:WOBLAB Repository PAYERS PAYERS ENCOUNTER GUARANTOR PAYER SUBSCRIBER SOURCE 01/25/2018 JENNY L Primary NAVIN COCHRANDOB: [place] [id number] STACY Insurance:ANTHEMPolic [id number] [facility] Number: [facility] [address]Hth: (330) [id number] Repository [phone] () Date:9993-72-94QO [address] [place] [address] 47570UO: 01/25/2018 Secondary NOT GIVENUNK Deborah Insurance:SELF PAY [facility] Number: Effective Repository Date:2018-01-25 08/24/2017 JENNY L Primary NAVIN COCHRANDOB: [place] [id number] STACY Insurance:ANTHEMPolic [id number] [place] Number: Hospital [id number]: (330) [id number] Repository [phone] () Date:8519-35-12SN [address] [place] [address] 44766DC: 08/24/2017 Secondary JENNY L [place] Insurance:CARESOURCEP COCHRANDOB: [facility] Number: [id number] Hospital [id number] Repository Date:2017-08-24[address]ATTN: [place] [address]MW: 08/24/2017 Tertiary NOT GIVENUNK Deborah Insurance:SELF PAY [facility] Number: Effective Repository Date:2017-08-24 07/27/2017 JENNY L Primary NAVIN COCHRANDOB: [place] [id number] STACY Insurance:ANTHEMPolic [id number] [place] Number: Hospital [id number]: (330) [id number] Repository [phone] (HP) Date:8278-22-46KE [address], [place] [address]FR: 07/27/2017 Secondary JENNY L [place] Insurance:CARESOURCEP COCHRANDOB: [facility] olicy Number: [id number] Hospital [id number] Repository Date:2017-07-27[address]ATTN: [place] [address]IX: 07/27/2017 Tertiary NOT GIVENUNK Deborah Insurance:SELF PAY [facility] Number: Effective Repository Date:2017-07-27 06/15/2017 JENNY L Primary NAVIN COCHRANDOB: [place] [id number] STACY Insurance[place]HEMPolic [id number] Number: Hospital [id number]: (330) [id number] Repository [phone] (HP) Date:9786-51-21ZP [address] [place] [address]GY: 06/15/2017 Secondary JENNY L [place] Insurance:CARESOURCEP COCHRANDOB: [facility] Number: [id number] Hospital [id number] Repository Date:2017-06-15[address]ATTN: [place] [address]LT: 06/15/2017 Tertiary NOT GIVENUNK Deborah Insurance:SELF PAY [facility] Number: Effective Repository Date:2017-06-15 05/20/2017 Jenny Primary NAVIN COCHRANDOB: [place] [id number] [place] Insurance:[place]HEMPolic [id number] Number: Hospital [id number]: (330) [id number] Repository [phone] (HP) Date:4752-33-57MK [address], [place] [address]KJ: 05/20/2017 Secondary NOT GIVENUNK Deborah Insurance:SELF PAY [facility] Number: Effective Repository Date:2017-05-20 04/18/2017 Jenny Primary NAVIN NISHANTRANDOB: Deborah [id number] [place] Insurance:ANTHEMPolic [id number] Number: [facility] [id number]: 330 [id number] Repository [phone] () Date:0651-79-48PT [address], [place] [address]IN: 04/18/2017 Secondary NOT GIVENUNK Deborah Insurance:SELF PAY [facility] Number: Effective Repository Date:2017-04-18 03/25/2017 Jenny Primary NAVIN NUNEZ Deborah [id number] [place] Number: [facility] [id number]: 330 [id number] Repository [phone] () Date:3290-80-18PI [address], [place] [address]MQ: 03/25/2017 Secondary NOT GIVENUNK Deborah Insurance:SELF PAY [facility] Number: Effective Repository Date:2017-03-25
== END ==
PROVIDERS: Visit Provider Obstetrics & Gynecology
DX: Z11.3 Encounter for screening for infections with a predominantly sexual mode of transmission (principal); Z34.82 Encounter for supervision of other normal pregnancy, second trimester
CPT/HCPCS: 87491; 87591

== ENCOUNTER → 2018-02-23 10:17 | Outpatient (CLI) | payer BC, SELFPAY ==
[2018-02-23 13:38] LABS: Color, Urine Yellow (Yellow); Glucose, Dipstick Normal (Normal); Ketone-Dipstick 5 mg/dl (Negative); Leukocyte Esterase-Dipstick 25 /ul (Negative); Nitrite-Dipstick Negative (Negative); Occult Blood-Urine 10 /ul (Negative); Protein-Dipstick 15 mg/dl (Negative); Urine Bilirubin Dipstick Negative (Negative); Urine Clarity Cloudy (Clear); Urine Urobilinogen Normal (Normal)
[2018-02-23 13:39] LABS: Absolute Lymphocyte Count 1.39 X10^3/ul (0.83-4.51); Absolute Neutrophil Count 6.7 X10^3/uL (2.0-7.7); Basophil# 0.02 X10^3/uL; Basophil% 0.2 % (0-1); Eosinophil# 0.33 X10^3/uL; Eosinophils% 3.7 % (0-5); Hematocrit 32.5 % (37-47); Hemoglobin 10.3 g/dl (12.0-15.0); Lymphocyte # 1.39 X10^3/ul (4.0); Lymphocyte % 15.5 % (19-41); Mean Corp Hgb Conc 31.7 g/gl (32-36); Mean Corpuscular Hgb 26.1 pg (27.0-32.0); Mean Corpuscular Volume 82.3 fL (81-99); Mean Platelet Vol. 9.6 fl (6.2-12.0); Monocyte# 0.51 X10^3/uL; Monocyte% 5.7 % (0-10); Neutrophil # 6.67 X10^3/uL (2.7-7.7); Neutrophil % 74.7 % (47-70); Platelet Count 389 K/mm3 (150-450); RBC Distribution Width CV 13.9 % (11.6-14.6); Red Blood Count 3.95 M/mm3 (4.2-5.4); White Blood Count 8.9 K/mm3 (4.4-11.0)
[2018-02-23 13:40] LABS: POSITIVE COUNT NO; POSITIVE DIFFERENTIAL NO; POSITIVE MORPHOLOGY NO
[2018-02-23 13:59] LABS: Thyroid Stim Hormone (TSH) 3.71 uIU/mL (0.358-3.74)
[2018-02-23 14:02] LABS: Amphetamine Urine VISTA NEGATIVE (<1000 ng/mL); Barbiturate Urine VISTA NEGATIVE (< 200 ng/mL); Benzodiazepine Urine VISTA NEGATIVE (< 200 ng/mL); Cocaine Urine VISTA NEGATIVE (< 300 ng/mL); Ecstacy Urine VISTA NEGATIVE (< 500 ng/mL); Methadone Urine VISTA NEGATIVE (< 300 ng/mL); PCP Urine VISTA NEGATIVE (< 25 ng/mL); THC Urine VISTA NEGATIVE (< 50 ng/mL); Vista UDS pH Range 6
[2018-02-23 14:39] LABS: HIV - WCH Non-Reactive (Nonreactive)
[2018-02-24 14:28] LABS: HEPATITIS B SURFACE AG Negative (Negative); Hep C Antibodies 0.2 s/co ratio (0.0-0.9)
[2018-02-25 03:22] LABS: Prenatal RPR NONREACTIVE (NONREACTIVE)
== END ==
PROVIDERS: Visit Provider Obstetrics & Gynecology
DX: Z34.82 Encounter for supervision of other normal pregnancy, second trimester (principal)
CPT/HCPCS: 36415; 80307; 81002; 84443; 85025; 86703; 86762; 86803; 87340

== ENCOUNTER → 2018-04-06 08:58 | Outpatient (CLI) | payer BC, SELFPAY ==
[2017-06-16 00:02] VITALS: BMI 22.8
[2018-04-06 11:12] LABS: Hematocrit 32.4 % (37-47); Hemoglobin 9.9 g/dl (12.0-15.0); Mean Corp Hgb Conc 30.6 g/gl (32-36); Mean Corpuscular Hgb 24.7 pg (27.0-32.0); Mean Corpuscular Volume 80.8 fL (81-99); Mean Platelet Vol. 9.6 fl (6.2-12.0); Platelet Count 392 K/mm3 (150-450); RBC Distribution Width CV 13.4 % (11.6-14.6); RBC Distribution Width SD 39.7 fl (35.1-43.9); Red Blood Count 4.01 M/mm3 (4.2-5.4); White Blood Count 9.9 K/mm3 (4.4-11.0)
[2018-04-06 11:13] LABS: Scan Indicated on CBC? Y/N NO
[2018-04-06 11:19] LABS: Glucose Challenge Gest 1H 50g 81 mg/dL (70-140)
== END ==
PROVIDERS: Visit Provider Obstetrics & Gynecology
DX: Z34.82 Encounter for supervision of other normal pregnancy, second trimester (principal)
CPT/HCPCS: 36415; 82950; 85027

== ENCOUNTER → 2018-05-30 13:42 | Outpatient (CLI) | payer BC, SELFPAY ==
[2017-06-16 00:02] VITALS: BMI 22.8
== END ==
PROVIDERS: Referring Provider Obstetrics & Gynecology; Visit Provider Obstetrics & Gynecology
DX: Z36.85 Encounter for antenatal screening for Streptococcus B (principal)
CPT/HCPCS: 87081

== ENCOUNTER 2018-06-21 20:40 | Inpatient (IN) | payer BC, MEDICAID, SELFPAY ==
[2017-06-16 00:02] VITALS: BMI 22.8
[2018-06-21 21:35] VITALS: BMI 25.2
[2018-06-21] MEDS: Lactated Ringers 1,000 ML 50 ML IV ×2 (21:35→22:54)
--- NOTE | 2018-06-21 22:00 | NURSING ---
pt had late care, did not know she was unless 21 weeks gestation. , however has had multiple visits since.
[2018-06-21 22:06] LABS: Absolute Lymphocyte Count 1.69 X10^3/ul (0.83-4.51); Absolute Neutrophil Count 12.5 X10^3/uL (2.0-7.7); Basophil# 0.02 X10^3/uL; Basophil% 0.1 % (0-1); Eosinophil# 0.18 X10^3/uL; Eosinophils% 1.2 % (0-5); Hemoglobin 9.4 g/dl (12.0-15.0); Lymphocyte # 1.69 X10^3/ul (4.0); Lymphocyte % 10.9 % (19-41); Mean Corp Hgb Conc 30.3 g/gl (32-36); Mean Corpuscular Hgb 21.8 pg (27.0-32.0); Mean Corpuscular Volume 71.9 fL (81-99); Mean Platelet Vol. 9.4 fl (6.2-12.0); Monocyte# 1.09 X10^3/uL; Neutrophil # 12.47 X10^3/uL (2.7-7.7); Neutrophil % 80.5 % (47-70); Platelet Count 333 K/mm3 (150-450); RBC Distribution Width CV 16.4 % (11.6-14.6); RBC Distribution Width SD 43.1 fl (35.1-43.9); Red Blood Count 4.31 M/mm3 (4.2-5.4); White Blood Count 15.5 K/mm3 (4.4-11.0)
[2018-06-21 22:10] LABS: Differential Indicated SCAN CRITERIA MET; POSITIVE COUNT NO; POSITIVE DIFFERENTIAL NO; POSITIVE MORPHOLOGY YES
[2018-06-21 22:35] LABS: Anisocytosis 1+; Differential Comment SCANNED
[2018-06-21] MEDS: fentaNYL-bupivacaine (epidural) 100 ML BAG EPIDURAL (23:18)
--- NOTE | 2018-06-22 00:17 | PCM.PN.BLA ---
Progress Note Admitted early labor 2129. Unable to AROM until nearly midnight. 38 6/7 wk admitted in early labor LATE PNC and dates by 17+ wk sono. BBOW with plan for AROM after epidural placed Delay in AROM due to placement of epidural, then vasovagal. Ephedrine given IV fluid bolus. attempt EFM category I tracing UCs irreg and not always picked up CX: BBOW AROM copious clear fluid. Attempted placement of IUPC, but unable to place easily d/t maternal tilt and VTX 5/95/-1 after AROM and stripping membranes. Cervix more centered, no longer oblong and posterior on exam. A/P: 39 wk wk attempt. Continue labor. Consider pitocin prn. Watch progress, descent, tolerance of labor.
--- NOTE | 2018-06-22 00:21 | PN_ITS ---
Progress Note Admitted early labor 2129. Unable to AROM until nearly midnight. 38 6/7 wk admitted in early labor LATE PNC and dates by 17+ wk sono. BBOW w ith plan for AROM after epidural placed Delay in AROM due to placement of epidural, then vasovagal. Ephedrine given IV fluid bolus. attempt EFM category I tracing UCs irreg and not always picked up CX: BBOW AROM copious clear fluid. Attempted placement of IUPC, but unable to place easily d/t maternal tilt and VTX 5/95/-1 after AROM and stripping membranes. Cervix more centered, no longer oblong and posterior on exam. A/P: 39 wk wk attempt. Continue labor. Consider pitocin prn. Watch progress, descent, tolerance of labor.
[2018-06-22] MEDS: Lactated Ringers 1,000 ML 50 ML IV (02:43)
[2018-06-22] MEDS: Amnioinfusion- 0.9% NS 1,000 ML IV.SOLN. INTRA-UTER (04:06)
[2018-06-22] MEDS: Oxytocin 30 units/NS 500 ml 30 UNITS/500 ML IV.SOLN 334 UNITS IV (05:24)
--- NOTE | 2018-06-22 05:35 | PCM.OPRPT ---
Vaginal Delivery Maternal Presentation: Active Labor 38 6/7 WK early labor Amniotic Membrane Rupture Type: Artificial Amniotic Fluid Description: Clear Final DINA: 06/29/18 Final DINA Source: [place] <20 weeks Gestational age: 39 Weeks and 0 Days Date of Procedure: 06/22/18 Pre-Operative Diagnosis: 38 6/7 wk labor Post-Operative Diagnosis: 39 wk Surgery/ Procedure Performed: Spontaneous Vaginal Delivery Anesthesiologist: Shauna Saeed MD Type of Anesthesia: Epidural Description of Procedure: of a prado viable male over intact perineum Head delivered GISSELL. No nuchal cord. Shoulders delivered easily. Infant, crying and vigorous, to maternal abdomen. Delayed cord clamping employed , then cord clamped x two and cut. Routine ABG and VBG collected. PP exam no repair required L anterior labial laceration 1st deg Placenta delivered by spont expulsion, expression. Normal appearing and intact with trailing membranes. EBL 350 cc pt and tolerated delivery well to recovery, stable condition. Ray Kelvin and needle counts correct x two. Presentation: Vertex, VALENTINO Placental Delivery Description: Spontaneous, Expressed Placenta Disposition: [facility] Cord Vessel Description: 3 Vessels Cord Gases drawn per routine: ABG, VBG Cord Entanglement: None Drain: Rutledge to straight drain Estimated Blood Loss: 350 Infant A gender: Male (1 minute): 9 (5 minute): 9 Episiotomy Description: None Laceration: Perineal Extension/lac - No laceration requiring repair. L anterior labial lac noted., 1st degree Medications given after delivery: IV Pitocin Complications: None
--- NOTE | 2018-06-22 05:41 | DCINST_ITS ---
Discharge Diet: No Restrictions Discharge Activity: May Shower, May Take a Tub Bath Return to work on:: 08/08/18 May resume sexual activity in: 4-6 weeks Additional Activity Instructions:: Nothing in the vagina for 4-6 weeks. You may return to work/school in 6 weeks. Additional Instructions: If you experience any of the following, contact your healthcare provider. * Bleeding that soaks a pad every hour for 2 hours * Fever 100.4 or higher * Unrelieved abdominal pain * Problems urinating (including inability to urinate or burning while urinating). * Visual changes * Severe headache * Flu-like symptoms * Pain or redness in one of both of your breasts * Pain, warmth, tenderness or swelling in your legs, especially the calf area * Frequent nausea and vomiting * Symptoms of depression or anxiety If you experience any of the following, call 911 or go to the nearest Emergency Room. * Chest pain * Problems breathing * Seizure activity * Partial or complete paralysis of a body part, slurred speech, weakness or drooping of the face, or a sudden inability to walk or hold your balance Allergies/Adverse Reactions: Allergies No Known Allergies Allergy (Verified 06/21/18 22:28) Medications to take at Discharge Acetaminophen [Tylenol Tablet] 325 - 650 mg PO Q4H PRN PRN tablet 06/16/17 Ferrous Sulfate 325 mg PO BIDCM #60 tab 06/17/17 Pnv No.103/Folic/Om3s/Fish Oil [ Gummies] 2 tab PO DAILY 06/21/18 Please Follow Up With: Tyesha Cristina MD - [phone] When: Call to make an appointment with your doctor in 6 weeks. Primary Care Physician: Care Physician,No Primary [Primary Care Provider] - Test Results: Test results from this visit will be discussed in further detail at your follow- up appointment, if applicable. Proposed Discharge Date: 06/23/18
[2018-06-22] MEDS: Oxytocin 30 units/NS 500 ml 30 UNITS/500 ML IV.SOLN 167 UNITS IV (05:55)
[2018-06-22] MEDS: 0.9% Saline Lock 10 ML Syringe IV (08:07)
[2018-06-22 11:34] VITALS: BP 97/49; PULSE 89; RESP 18; TEMP 36.8
--- NOTE | 2018-06-22 11:38 | NURSING ---
garcia maintained due to labial edema. Ice packs reapplied with tucks. Pt declined offer of Motrin to help with swelling. Physician notified for other anti inflammatory order.
[2018-06-22] MEDS: Naproxen 250 MG Tablet PO ×2 (13:21→21:54)
[2018-06-22 16:41] VITALS: BP 99/62; PULSE 72; RESP 18; TEMP 36.7
[2018-06-22 20:42] VITALS: BP 96/63; PULSE 80; RESP 16; TEMP 36.6
[2018-06-23] VITALS (7 sets, daily range): BP systolic 82–107; BP diastolic 42–64; PULSE 73–100; RESP 15–20; TEMP 36.2–36.7; O2SAT 98
--- NOTE | 2018-06-23 07:55 | PCM.PN.OB ---
Subjective: Some cramping. Breast feeding. Bleeding light. Objective: Afeb VSS - Physical Exam General: Alert, Oriented x3, Cooperative, No apparent distress Lungs: Clear to auscultation, Normal air movement Cardiovascular: Regular rate, Regular Rhythm Abdomen: Soft, Non Tender, Non-Distended Extremities: No edema Skin: No rashes Neurological: Neuro grossly intact Psych/Mental Status: Normal Affect Comment: Lochia light Vital Signs Temp Pulse Resp BP 97.2 F L 75 15 102/64 06/23/18 04:00 06/23/18 04:00 06/23/18 04:00 06/23/18 04:00 Oxygen Delivery Method Room Air Weight: 158 lb 11.725 oz Body Mass Index (BMI) 25.2 Intake and Output for Last 24 Hours 06/21/18 06/22/18 06/23/18 23:59 23:59 23:59 Intake Total 2550 / 2550 Output Total 1900 / 1900 600 / 600 Balance 650 / 650 -600 / -600 Medical Necessity - Tobacco Use Smoking Status: Never smoker Assessment/Plan Doing well on PP day#1. Discussed discharge today and likely will stay until tomorrow as baby being circumsized today. Home going instructions and warnings given in case she decides later to go home.
[2018-06-23] MEDS: Naproxen 250 MG Tablet PO (15:12)
[2018-06-23 15:48] LABS: Hematocrit 27.6 % (37-47); Hemoglobin 8.4 g/dl (12.0-15.0); Mean Corp Hgb Conc 30.4 g/gl (32-36); Mean Corpuscular Volume 72.4 fL (81-99); Platelet Count 350 K/mm3 (150-450); RBC Distribution Width CV 16.9 % (11.6-14.6); RBC Distribution Width SD 42.9 fl (35.1-43.9); Red Blood Count 3.81 M/mm3 (4.2-5.4); Scan Indicated on CBC? Y/N YES- FLAGS NOTED; White Blood Count 13.9 K/mm3 (4.4-11.0)
[2018-06-24 01:53] VITALS: BP 97/59; PULSE 75; RESP 14; TEMP 36.8; O2SAT 96
[2018-06-24 09:00] VITALS: BP 108/60; PULSE 72; RESP 16; TEMP 36.6
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
--- NOTE | 2018-06-24 10:08 | PCM.PN.OB ---
Subjective: Patient without complaints. Tolerating diet well. Ready to go home. - Physical Exam Vital Signs Temp Pulse Resp BP Pulse Ox 97.9 F 72 16 108/60 96 06/24/18 09:00 06/24/18 09:00 06/24/18 09:00 06/24/18 09:00 06/24/18 01:53 Oxygen Delivery Method Room Air Weight: 158 lb 11.725 oz Body Mass Index (BMI) 25.2 Intake and Output for Last 24 Hours 06/22/18 06/23/18 06/24/18 23:59 23:59 23:59 Intake Total 2550 / 2550 Output Total 1900 / 1900 600 / 600 Balance 650 / 650 -600 / -600 Laboratory Tests Past 24 Hrs 06/23/18 15:10 WBC 13.9 H RBC 3.81 L Hgb 8.4 L Hct 27.6 L MCV 72.4 L MCH 22.0 L MCHC 30.4 L RDW 16.9 H RDW Differential 42.9 Plt Count 350 MPV 10.0 Differential Comment Medical Necessity - Tobacco Use Smoking Status: Never smoker Assessment/Plan Doing well day #2 status post . Will release to home with routine instructions.
--- NOTE | 2018-06-24 10:10 | PCM.DC.BLA ---
Discharge Summary Date of Admission: 06/21/18 Date of Discharge: 06/24/18 Summary: Admission diagnosis: Term itching and in labor, prior Discharge diagnosis: Same HPI: This is a 23-year-old patient who presents to labor and delivery in active labor. care has been uneventful other than a prior section. Physical exam was unremarkable Hospital course: patient is admitted and had a viable male infant born without complications. the patient did well and it was felt that she was ready for discharge on day #2 Discharge instructions and follow-up: patient was instructed not to drive for several days, not put anything in the vagina for a month and to call the office for an appointment in 2 weeks in 6 weeks. - Physical Exam Vital Signs Temp Pulse Resp BP Pulse Ox 97.9 F 72 16 108/60 96 06/24/18 09:00 06/24/18 09:00 06/24/18 09:00 06/24/18 09:00 06/24/18 01:53 Oxygen Delivery Method Room Air Weight: 158 lb 11.725 oz Body Mass Index (BMI) 25.2 Intake and Output for Last 24 Hours 06/22/18 06/23/18 06/24/18 23:59 23:59 23:59 Intake Total 2550 / 2550 Output Total 1900 / 1900 600 / 600 Balance 650 / 650 -600 / -600 Laboratory Tests Past 24 Hrs 06/23/18 15:10 WBC 13.9 H RBC 3.81 L Hgb 8.4 L Hct 27.6 L MCV 72.4 L MCH 22.0 L MCHC 30.4 L RDW 16.9 H RDW Differential 42.9 Plt Count 350 MPV 10.0 Differential Comment
[2018-06-24 12:35] VITALS: BP 117/71; PULSE 98; RESP 18; TEMP 36.4
--- NOTE | 2018-06-28 12:18 | NURSING ---
Voicemail left for Mary. Lilly RN IBCLC
== END 2018-06-24 13:00 | disposition home or self-care (01) | DRG 807 ==
PROVIDERS: Admitting Provider Obstetrics & Gynecology; Referring Provider Obstetrics & Gynecology; Visit Provider Obstetrics & Gynecology
DX: O65.5 Obstructed labor due to abnormality of maternal pelvic organs (principal); Z37.0 Single live birth; O34.211 Maternal care for low transverse scar from previous cesarean delivery; O70.0 First degree perineal laceration during delivery; N85.8 Other specified noninflammatory disorders of uterus; O99.013 Anemia complicating pregnancy, third trimester; D64.9 Anemia, unspecified; Z3A.39 39 weeks gestation of pregnancy
CPT/HCPCS: 59025; 59050; 85025; 85027; 86850; 86900; 99218; J7030; J7120; A4216; G0378

== ENCOUNTER → 2018-08-03 | Outpatient (CLI) | payer BC, SELFPAY ==
[2018-08-07 13:02] LABS: HPV Reflexed? NOT INDICATED
== END | disposition home or self-care (01) ==
LOC: LABSPEC 13:53
PROVIDERS: Visit Provider Obstetrics & Gynecology
DX: Z12.4 Encounter for screening for malignant neoplasm of cervix (principal)
CPT/HCPCS: 88175; G0145

== ENCOUNTER → 2019-04-10 09:46 | Outpatient (CLI) | payer BC, MEDICAID, SELFPAY ==
[2019-04-10 12:16] LABS: hCG Titer Quant., Serum 41289 mIU/mL (1-3)
[2019-04-10 15:46] LABS: Chlamydia Trachomatis by PCR Negative (Negative); Neisserai gonorrhoeae by PCR Negative (Negative); Probe Check PASS; Sample Adequacy Control PASS; Specimen Processing Control PASS
== END ==
PROVIDERS: Visit Provider Advanced Practice Midwife
DX: Z32.01 Encounter for pregnancy test, result positive (principal); Z11.3 Encounter for screening for infections with a predominantly sexual mode of transmission
CPT/HCPCS: 36415; 84702; 87491; 87591

== ENCOUNTER → 2019-04-26 10:39 | Outpatient (CLI) | payer BC, MEDICAID, SELFPAY ==
[2019-04-26 13:48] LABS: Absolute Lymphocyte Count 1.66 X10^3/uL (0.83-4.51); Absolute Neutrophil Count 5.7 X10^3/uL (2.0-7.7); Basophil# 0.04 X10^3/uL; Basophil% 0.5 % (0-1); Color, Urine Yellow (Yellow); Eosinophils% 2.5 % (0-5); Glucose, Dipstick Normal (Normal); Hematocrit 41.4 % (37-47); Hemoglobin 13.2 g/dL (12.0-15.0); Ketone-Dipstick Negative (Negative); Leukocyte Esterase-Dipstick 25 /ul (Negative); Lymphocyte # 1.66 X10^3/ul (4.0); Lymphocyte % 20.9 % (19-41); Mean Corp Hgb Conc 31.9 g/dL (32-36); Mean Corpuscular Hgb 26.2 pg (27.0-32.0); Mean Corpuscular Volume 82.1 fL (81-99); Monocyte# 0.35 X10^3/uL; Monocyte% 4.4 % (0-10); NRBC Flagged by Analyzer 0 % (0-5); Neutrophil # 5.69 X10^3/uL (2.7-7.7); Neutrophil % 71.4 % (47-70); Nitrite-Dipstick Negative (Negative); Occult Blood-Urine Negative /ul (Negative); Platelet Count 348 K/mm3 (150-450); Protein-Dipstick Negative (Negative); RBC Distribution Width CV 15.2 % (11.6-14.6); Red Blood Count 5.04 M/mm3 (4.2-5.4); Urine Bilirubin Dipstick Negative (Negative); Urine Clarity Sl. Cloudy (Clear); Urine Urobilinogen Normal (Normal); Urine pH 6.5 (5.0 - 8.0)
[2019-04-26 14:15] LABS: Thyroid Stim Hormone (TSH) 4.06 uIU/mL (0.358-3.74)
[2019-04-26 14:19] LABS: Amphetamine Urine VISTA NEGATIVE (<1000 ng/mL); Barbiturate Urine VISTA NEGATIVE (< 200 ng/mL); Benzodiazepine Urine VISTA NEGATIVE (< 200 ng/mL); Cocaine Urine VISTA NEGATIVE (< 300 ng/mL); Ecstacy Urine VISTA NEGATIVE (< 500 ng/mL); Methadone Urine VISTA NEGATIVE (< 300 ng/mL); PCP Urine VISTA NEGATIVE (< 25 ng/mL); THC Urine VISTA NEGATIVE (< 50 ng/mL); Vista UDS pH Range 6
[2019-04-27 01:05] LABS: Prenatal RPR NONREACTIVE (NONREACTIVE)
[2019-04-27 09:41] LABS: Free T3 2.6 pg/mL (2.18-3.98); T4 Free Direct 1.05 ng/dL (0.76-1.46)
[2019-04-27 10:16] LABS: HIV - WCH Non-Reactive (Nonreactive); Hepatitis B Surface Antigen Non-Reactive (Nonreactive); Hepatitis C Antibody Non-Reactive (Nonreactive); Rubella IgG 115.6 IU/mL
== END ==
PROVIDERS: Visit Provider Obstetrics & Gynecology
DX: O99.281 Endocrine, nutritional and metabolic diseases complicating pregnancy, first trimester (principal); E03.9 Hypothyroidism, unspecified; Z3A.00 Weeks of gestation of pregnancy not specified
CPT/HCPCS: 36415; 80307; 81002; 84439; 84443; 84481; 85025; 86703; 86762; 86803; 87340

== ENCOUNTER → 2019-09-05 09:12 | Outpatient (CLI) | payer BC, MEDICAID, SELFPAY ==
[2019-09-05 11:18] LABS: Hemoglobin 9.6 g/dL (12.0-15.0); Mean Corpuscular Hgb 25.1 pg (27.0-32.0); Mean Corpuscular Volume 83.8 fL (81-99); Mean Platelet Vol. 10.1 fl (6.2-12.0); Platelet Count 326 K/mm3 (150-450); RBC Distribution Width CV 13.2 % (11.6-14.6); RBC Distribution Width SD 40.6 fl (35.1-43.9); Red Blood Count 3.82 M/mm3 (4.2-5.4); White Blood Count 9.2 K/mm3 (4.4-11.0)
[2019-09-05 11:23] LABS: Glucose Challenge Gest 1H 50g 107 mg/dL (70-140)
== END ==
PROVIDERS: Visit Provider Obstetrics & Gynecology
DX: Z34.83 Encounter for supervision of other normal pregnancy, third trimester (principal)
CPT/HCPCS: 36415; 82950; 85027

== ENCOUNTER 2019-09-23 16:35 | Outpatient (CLI) | payer BC, MEDICAID, SELFPAY ==
[2019-09-23 17:10] VITALS: BMI 20.5
[2019-09-23] MEDS: Lactated Ringers 1,000 ML 999 ML IV (17:25)
[2019-09-23] MEDS: Magnesium Sulfate 4gm/100mL 4 GM/100 ML IV.SOLN. IV (17:35)
[2019-09-23 17:36] LABS: Absolute Neutrophil Count 8.5 X10^3/uL (2.0-7.7); Basophil# 0.03 X10^3/uL; Basophil% 0.3 % (0-1); Eosinophil# 0.19 X10^3/uL; Eosinophils% 1.7 % (0-5); Hematocrit 31.6 % (37-47); Hemoglobin 9.5 g/dL (12.0-15.0); Lymphocyte % 13.7 % (19-41); Mean Corp Hgb Conc 30.1 g/dL (32-36); Mean Corpuscular Hgb 24.1 pg (27.0-32.0); Mean Corpuscular Volume 80.2 fL (81-99); Monocyte% 5.5 % (0-10); NRBC Flagged by Analyzer 0 % (0-5); Neutrophil # 8.54 X10^3/uL (2.7-7.7); Neutrophil % 78.3 % (47-70); Platelet Count 306 K/mm3 (150-450); RBC Distribution Width CV 13.6 % (11.6-14.6); Red Blood Count 3.94 M/mm3 (4.2-5.4); White Blood Count 10.9 K/mm3 (4.4-11.0)
[2019-09-23] MEDS: Betamethasone/Betamethasone 30 MG/5 ML Vial 12 MG IM (17:41)
--- NOTE | 2019-09-23 17:46 | PCM.HP.OB ---
- Problem List (1) labor Status: Acute (2) 30 weeks gestation of Status: Acute History Date of Admission: 09/23/19 Final DINA: 11/28/19 Final DINA Source: US <20 weeks Gestational age: 30 Weeks and 4 Days History of this : This is a 24 year-old, G [3], P [2], at 30 5/7 weeks gestational age presents with contractions since 1300h today. She reports they awoke her from a nap, accompanied by chills and diarrhea x 3. Denies leaking of fluid or vaginal bleeding. + movement. Medical History: Medical History (Last Updated 09/23/19 @ 18:[address] Che Oneal MD) Anemia affecting O99.019 Anxiety F41.9 Depression F32.9 Subclinical hypothyroidism E03.9 Surgical History: Surgical History (Last Updated 09/23/19 @ 17:[address] Che Oneal MD) History of cholecystectomy Z90.49 Previous section Z98.891 2018 Allergies No Known Allergies Allergy (Verified 06/21/18 22:28) Home Medications: Home Medications Ferrous Sulfate 325 mg PO BIDCM #60 tab 06/17/17 Pnv No.103/Folic/Om3s/Fish Oil [ Gummies] 2 tab PO DAILY 06/21/18 Hydroxyzine HCl 1 tab PO DAILY 09/23/19 Smoking Status: Never smoker Alcohol: None Number of Fetus(es): 1 NST - FHR Rate Baby A Baseline: 135 Variability:: Moderate Accelerations:: 15 x 15 Decelerations:: Variable NST Reactive:: Yes FHR Category:: Category II Uterine Activity:: 3-4/10 History Past Pregnancies: Past Pregnancies Delivery Date Name GA/ Weeks Outcome Route Wt Infant Sex Labor Length Anesthesia Delivery Location Provider FOB 06/16/2017 Maddison 40 OP, CPD 7lb5oz F 18 Epidural->[facility] [place] [facility] 06/22/2018 Chris 39 TOLAC 7lb7oz F 3 Epidural [place] [facility] Labs: Mom's Microbiology 09/23/19 17:50 Genital vaginal Group B Streptococcus Culture - Pending Mom's Problem List Problem Status Onset Code labor Acute O60.00 30 weeks gestation of Acute Z3A.30 Mom's Labs & Results 09/23/19 09/23/19 09/23/19 17:25 17:25 17:47 WBC 10.9 RBC 3.94 L Hgb 9.5 L Hct 31.6 L MCV 80.2 L MCH 24.1 L MCHC 30.1 L RDW Std Deviation 39.0 RDW Coeff of Tavon 13.6 Plt Count 306 MPV 10.0 Immature Gran % (Auto) 0.500 Neut % (Auto) 78.3 H Lymph % (Auto) 13.7 L [place] % (Auto) 5.5 Eos % (Auto) 1.7 Baso % (Auto) 0.3 Absolute Neuts (auto) 8.5 H Absolute Lymphs (auto) 1.50 Nucleated RBC % 0 TSH Free T4 Group B Strep DNA Specimen Comment Blood Type Cancelled Pending Antibody Screen Cancelled Pending 09/23/19 09/23/19 17:50 17:50 WBC RBC Hgb Hct MCV MCH MCHC RDW Std Deviation RDW Coeff of Tavon Plt Count MPV Immature Gran % (Auto) Neut % (Auto) Lymph % (Auto) [place] % (Auto) Eos % (Auto) Baso % (Auto) Absolute Neuts (auto) Absolute Lymphs (auto) Nucleated RBC % TSH Pending Free T4 Pending Group B Strep DNA Pending Specimen Comment Pending Blood Type Antibody Screen Social History Alleged father terry Dimas Smoking No Smoking Status Never smoker Number of Visits: 6 Review of Systems Constitutional: Reports: Chills. Denies: Fever Eyes: Denies: Vision Change HEENT: Denies: Head Aches, Sore Throat Cardiovascular: Denies: Chest Pain, Edema Respiratory: Denies: Cough, Shortness of Breath Gastrointestinal: Reports: Abdominal Pain, Diarrhea. Denies: Constipation, Nausea, Vomiting Genitourinary: Reports: Frequency. Denies: Dysuria, Urgency Gynecological: Denies: Vaginal bleeding Physical Exam Vitals: avss General: Alert, Oriented x3, Cooperative, No apparent distress HEENT: Atraumatic, Normocephalic Cardiovascular: Regular rate, Regular Rhythm, Normal S1, Normal S2 Lungs: Clear to auscultation, Normal air movement, No rhonchi, No wheeze, No rales Abdomen: Soft, Non Tender, Non-Distended, Gravid, - - Fundus nontender Extremities:: No edema Neurological: Neuro grossly intact SCHOLARSHIP COUNSELOR: Normal external genitalia Estimated gestational size: Appropriate for gestational size Presentation: - - on US Cervix Dilation (cm): 4 Station: -2 Effacement (%): 70 - per RN exam Assessment/Plan All Active Problems (Last Updated 09/23/19 @ 18:[address] Che Oneal MD) labor (Acute) 30 weeks gestation of (Acute) This is a 24 year-old, G [3], P [2002], at 30 5/7 weeks gestational age with labor, Cat II FHR, AGA - hx prior and x1. -Magnesium for tocolysis -Betamethasone given -GBS culture, Ampicillin for GBS ppx -U/A, Ucx -Utox -Cephalic -for TOLAC if progresses -Advised transfer, pt agreeable. Accepted for transfer to [facility] by Dr. Luis.
[2019-09-23] MEDS: Magnesium Sulfate 4gm/100mL 2 GM/50 ML IV.SOLN. IV (17:52)
[2019-09-23] MEDS: Magnesium Sulfate 20 GM/500 ML BAG IV (18:04)
[2019-09-23 18:23] LABS: T4 Free Direct 0.92 ng/dL (0.76-1.46); Thyroid Stim Hormone (TSH) 2.92 uIU/mL (0.358-3.74)
[2019-09-23 18:40] LABS: Bacteria 0 SEEN /hpf (None Seen); Mucous, Urine 0 SEEN /hpf (<or=2+); Red Blood Cells-Urine 0 SEEN /hpf (0-5)
[2019-09-23 18:47] LABS: Glucose, Dipstick Normal (Normal); Ketone-Dipstick Negative (Negative); Leukocyte Esterase-Dipstick 25 /ul (Negative); Nitrite-Dipstick Negative (Negative); Occult Blood-Urine Negative /ul (Negative); Protein-Dipstick Negative (Negative); Urine Bilirubin Dipstick Negative (Negative); Urine Clarity Clear (Clear); Urine Urobilinogen Normal (Normal)
[2019-09-23 18:57] LABS: Color, Urine SEE COMMENT BELOW (Yellow)
[2019-09-23 19:02] LABS: Squamous Epithelial Cells - UA 0-5 SEEN /hpf (5-10); White Blood Cells 0-5 SEEN /hpf (0-5)
[2019-09-23 19:04] LABS: Amphetamine Urine VISTA NEGATIVE (<1000 ng/mL); Barbiturate Urine VISTA NEGATIVE (< 200 ng/mL); Benzodiazepine Urine VISTA NEGATIVE (< 200 ng/mL); Cocaine Urine VISTA NEGATIVE (< 300 ng/mL); Ecstacy Urine VISTA NEGATIVE (< 500 ng/mL); Methadone Urine VISTA NEGATIVE (< 300 ng/mL); PCP Urine VISTA NEGATIVE (< 25 ng/mL); THC Urine VISTA NEGATIVE (< 50 ng/mL); Vista UDS pH Range 7
--- NOTE | 2019-09-23 19:15 | PCM.PN.BLA ---
Progress Note PROGRESS NOTE Patient reports contractions spacing and less uncomfortable. She still feels flushed. + FM. AVSS GEN - NAD, AAO x 3 FHR 145, moderate variability, + accelerations, no decelerations TOCO 3/10 min SVE 4/50/-3 moderate and midposition by my exam NEURO +2 b/l LE DTRs Labs 09/23/19 09/23/19 09/23/19 17:25 17:50 18:17 WBC 10.9 RBC 3.94 L Hgb 9.5 L Hct 31.6 L MCV 80.2 L MCH 24.1 L MCHC 30.1 L RDW Std Deviation 39.0 RDW Coeff of Tavon 13.6 Plt Count 306 MPV 10.0 Immature Gran % (Auto) 0.500 Neut % (Auto) 78.3 H Lymph % (Auto) 13.7 L [place] % (Auto) 5.5 Eos % (Auto) 1.7 Baso % (Auto) 0.3 Absolute Neuts (auto) 8.5 H Absolute Lymphs (auto) 1.50 Nucleated RBC % 0 TSH 2.92 Free T4 0.92 Urine Color SEE COMMENT BELOW Urine Clarity Clear Urine pH 7.0 Ur Specific [place] 1.010 Urine Protein Negative Urine Glucose (UA) Normal Urine Ketones Negative Urine Occult Blood Negative Urine Nitrite Negative Urine Bilirubin Negative Urine Urobilinogen Normal Ur Leukocyte Esterase 25 H Urine RBC 0 SEEN Urine WBC 0-5 SEEN Ur Squamous Epith Cells 0-5 SEEN Urine Bacteria 0 SEEN Urine Mucus 0 SEEN A/P: 24yo @ 30 4/7wga with labor, Cat I FHR -Cervix unchanged from prior -Clear for transport
[2019-09-23 19:42] LABS: Group B Strep DNA By PCR Negative (Negative); Internal Control PASS; Probe Check PASS; Specimen Processing Control PASS
--- NOTE | 2019-09-23 20:07 | PCM.DC.SUM ---
Discharge Date and Diagnosis - Problem List Patient Problems: Active and Suspected Problems (Last Updated 09/23/19 @ 18:[address] Che Oneal MD) labor (Acute) 30 weeks gestation of (Acute) Date of Admission: 09/23/19 Date of Discharge: 09/23/19 - Primary Discharge Diagnosis Acute Problems: Active Problems (Last Updated 09/23/19 @ 18:[address] Che Oneal MD) labor (Acute) 30 weeks gestation of (Acute) Hospital Course and Treatment Operations: - Procedures: None Summary of Care Provided: The patient is a 24 year old F 3 para 2001 at 30 4/7 weeks gestation admitted with labor at 4cm dilation. She was started on IV magnesium, ampicillin and betamethasone injection administered. [facility] was [facility] for a higher level of care. Patient Problems: Active and Suspected Problems (Last Updated 09/23/19 @ 18:[address] Che Oneal MD) labor (Acute) 30 weeks gestation of (Acute) - Physical Exam Vitals/I&O's: Weight: 59.421 kg Body Mass Index (BMI) 20.5 Intake and Output for Last 24 Hours 09/21/19 09/22/19 09/23/19 23:59 23:59 23:59 Intake Total 1251.25 / 1251.25 Balance 1251.25 / 1251.25 Laboratory Results 09/23/19 17:25: WBC 10.9, RBC 3.94 L, Hgb 9.5 L, Hct 31.6 L, MCV 80.2 L, MCH 24.1 L, MCHC 30.1 L, RDW Std Deviation 39.0, RDW Coeff of Tavon 13.6, Plt Count 306, MPV 10.0, Immature Gran % (Auto) 0.500, Neut % (Auto) 78.3 H, Lymph % (Auto) 13.7 L, [place] % (Auto) 5.5, Eos % (Auto) 1.7, Baso % (Auto) 0.3, Absolute Neuts (auto) 8.5 H, Absolute Lymphs (auto) 1.50, Nucleated RBC % 0 09/23/19 17:25: Blood Type Cancelled, Antibody Screen Cancelled 09/23/19 17:47: Blood Type A POSITIVE, Antibody Screen NEGATIVE 09/23/19 17:50: Group B Strep DNA Negative, Specimen Comment Not Reportable 09/23/19 17:50: TSH 2.92, Free T4 0.92 09/23/19 18:17: Urine Color SEE COMMENT BELOW, Urine Clarity Clear, Urine pH 7.0, Ur Specific [place] 1.010, Urine Protein Negative, Urine Glucose (UA) Normal, Urine Ketones Negative, Urine Occult Blood Negative, Urine Nitrite Negative, Urine Bilirubin Negative, Urine Urobilinogen Normal, Ur Leukocyte Esterase 25 H, Urine RBC 0 SEEN, Urine WBC 0-5 SEEN, Ur Squamous Epith Cells 0-5 SEEN, Urine Bacteria 0 SEEN, Urine Mucus 0 SEEN 09/23/19 18:17: Urine Opiates Screen NEGATIVE, Urine Methadone Screen NEGATIVE, Ur Barbiturates Screen NEGATIVE, Ur Phencyclidine Scrn NEGATIVE, Ur Amphetamines Screen NEGATIVE, U Methamphetamin-MDMA NEGATIVE, U Benzodiazepines Scrn NEGATIVE, Urine Cocaine Screen NEGATIVE, U Cannabinoids Screen NEGATIVE, Ur Drug Screen Comment Current Medications Magnesium Sulfate (20gm/500ml) 20 gm in 500 mls @ 50 mls/hr IV .Q10H LAMBERTO Last Infusion: 09/23/19 19:25 Dose: 0 gm/hr, 0 mls/hr Documented by: Ondansetron HCl (Zofran) 4 mg IV Q8H PRN PRN PRN Reason: Nausea Only Home Medications: Medications to take at Discharge Ferrous Sulfate 325 mg PO BIDCM #60 tab 06/17/17 Pnv No.103/Folic/Om3s/Fish Oil [ Gummies] 2 tab PO DAILY 06/21/18 Hydroxyzine HCl 1 tab PO DAILY 09/23/19 Primary Care Physician: Care Physician,No Primary [Primary Care Provider] - Medical Necessity - Tobacco Use Smoking Status: Never smoker Meaningful Use Info Meaningful Use Diagnoses (Choose all that apply): None applicable
== END 2019-09-23 19:25 | disposition home or self-care (01) ==
LOC: WPOUT 16:43 → OBT 16:44
PROVIDERS: Visit Provider Obstetrics & Gynecology
DX: O60.03 Preterm labor without delivery, third trimester (principal); O99.013 Anemia complicating pregnancy, third trimester; O34.219 Maternal care for unspecified type scar from previous cesarean delivery; Z3A.30 30 weeks gestation of pregnancy; Z90.49 Acquired absence of other specified parts of digestive tract; O99.283 Endocrine, nutritional and metabolic diseases complicating pregnancy, third trimester; E03.9 Hypothyroidism, unspecified; F41.9 Anxiety disorder, unspecified; O99.343 Other mental disorders complicating pregnancy, third trimester
CPT/HCPCS: 36415; 59025; 59050; 80307; 81001; 84439; 84443; 85025; 86850; 86900; 86901; 87081; 87086; 87653; 96372; 99218; G0378; J0702

== ENCOUNTER 2019-09-29 18:40 | Outpatient (CLI) | payer BC, MEDICAID, SELFPAY ==
[2019-09-29] MEDS: Lactated Ringers 1,000 ML 999 ML IV (19:00)
[2019-09-29 19:25] VITALS: PULSE 92; RESP 16; O2SAT 98
[2019-09-29] MEDS: Magnesium Sulfate 4gm/100mL 4 GM/100 ML IV.SOLN. IV (19:25)
[2019-09-29 19:27] LABS: Absolute Lymphocyte Count 1.99 X10^3/uL (0.83-4.51); Absolute Neutrophil Count 7.3 X10^3/uL (2.0-7.7); Basophil# 0.03 X10^3/uL; Basophil% 0.3 % (0-1); Eosinophil# 0.18 X10^3/uL; Eosinophils% 1.7 % (0-5); Hematocrit 35.4 % (37-47); Hemoglobin 10.9 g/dL (12.0-15.0); Lymphocyte # 1.99 X10^3/ul (4.0); Lymphocyte % 19.2 % (19-41); Mean Corp Hgb Conc 30.8 g/dL (32-36); Mean Corpuscular Hgb 23.9 pg (27.0-32.0); Mean Corpuscular Volume 77.5 fL (81-99); Monocyte% 6.8 % (0-10); NRBC Flagged by Analyzer 0 % (0-5); Neutrophil # 7.33 X10^3/uL (2.7-7.7); Neutrophil % 70.9 % (47-70); Platelet Count 377 K/mm3 (150-450); RBC Distribution Width CV 13.7 % (11.6-14.6); RBC Distribution Width SD 38.3 fl (35.1-43.9); Red Blood Count 4.57 M/mm3 (4.2-5.4); White Blood Count 10.3 K/mm3 (4.4-11.0)
[2019-09-29 19:38] LABS: Anion Gap 6 (5-15); BUN 9 mg/dL (7-18); Calcium,Total 7.9 mg/dL (8.5-10.1); Chloride 108 mmol/L (98-107); Creatinine, Serum 0.56 mg/dL (0.55-1.02); EST Glomerular Filtration Rate 141 mL/min (>60); Est Glom Filt Rate - Afr Amer 171 mL/min (>60); Estimated Creatinine Clearance 143.21 ml/min; Glucose 86 mg/dL (74-106); Potassium 3.7 mmol/L (3.5-5.1); Sodium Level 139 mmol/L (136-145)
[2019-09-29 19:49] LABS: Fibrinogen 549 mg/dl (203-444)
[2019-09-29 19:50] VITALS: PULSE 86; RESP 16; O2SAT 99
[2019-09-29] MEDS: Magnesium Sulfate 20 GM/500 ML BAG IV (19:50)
--- NOTE | 2019-09-29 19:51 | OB.TRI.HP_ITS ---
- Problem List (1) 31 weeks gestation of Status: Acute (2) labor Status: Acute History of Present Illness Date of Service: 09/29/19 Was patient seen by the physician?: Yes Reason For Visit: RULE OUT LABOR Date of Service: 09/29/19 Final DINA: 11/28/19 Final DINA Source: US <20 weeks Gestational age: 31 Weeks and 3 Days History of Present Illness: at 31w3d gestation here reporting contractions Q2m apart that started at 1715. Allergies No Known Allergies Allergy (Verified 06/21/18 22:28) - Pertinent Past Medical History Medical History: Past Medical History (Last Updated 09/23/19 @ 18:[address] Che Oneal MD) Anemia affecting Anxiety Depression Subclinical hypothyroidism Surgical History: Past Surgical History (Last Updated 09/23/19 @ 17:[address] Che Oneal MD) History of cholecystectomy Previous section 2017 Laboratory Studies: Laboratory Tests 09/29/19 09/29/19 09/29/19 Range/Units 19:00 19:00 19:00 WBC 10.3 (4.4-11.0) K/mm3 RBC 4.57 (4.2-5.4) M/mm3 Hgb 10.9 L (12.0-15.0) g/dL Hct 35.4 L (37-47) % MCV 77.5 L (81-99) fL MCH 23.9 L (27.0-32.0) pg MCHC 30.8 L (32-36) g/dL RDW Std Deviation 38.3 (35.1-43.9) fl RDW Coeff of Tavon 13.7 (11.6-14.6) % Plt Count 377 (150-450) K/mm3 MPV 10.0 (6.2-12.0) fl Immature Gran % (Auto) 1.100 H (0.0-0.9) % Neut % (Auto) 70.9 H (47-70) % Lymph % (Auto) 19.2 (19-41) % [place] % (Auto) 6.8 (0-10) % Eos % (Auto) 1.7 (0-5) % Baso % (Auto) 0.3 (0-1) % Absolute Neuts (auto) 7.3 (2.0-7.7) X10^3/uL Absolute Lymphs (auto) 1.99 (0.83-4.51) X10^3/uL Nucleated RBC % 0 (0-5) % Fibrinogen 549 H (203-444) mg/dl Sodium 139 (136-145) mmol/L Potassium 3.7 (3.5-5.1) mmol/L Chloride 108 H (98-107) mmol/L Carbon Dioxide 25.0 (21.0-32.0) mmol/L Anion Gap 6 (5-15) BUN 9 (7-18) mg/dL Creatinine 0.56 (0.55-1.02) mg/dL Estim Creat Clear Calc 143.21 ml/min Est GFR (MDRD) Af Amer 171 (>60) mL/min Est GFR (MDRD) Non-Af 141 (>60) mL/min BUN/Creatinine Ratio 16.0 (10-20) RATIO Glucose 86 (74-106) mg/dL Calcium 7.9 L (8.5-10.1) mg/dL Review of Systems Constitutional: Denies: Chills, Fever, Weight Change HEENT: Denies: Head Aches, Sinus Congestion, Sinus Drainage Cardiovascular: Denies: Chest Pain, Palpitations Respiratory: Denies: Cough, Shortness of breath at rest, Sputum production Gastrointestinal: Denies: Abdominal Pain, Nausea, Vomiting Genitourinary: Denies: Dysuria Musculoskeletal: Denies: Joint Pain, Joint Tenderness Skin: Denies: Rash, Wounds Neurological: Denies: Numbness, Tingling, Focal weakness Psychiatric: Denies: Anxiety, Depression, Homicidal Ideations, Suicidal Ideations Hematologic/ Lymphatic: Denies: Easy Bruising, Easy Bleeding Physical Exam Vitals: Vital Signs Pulse Resp Pulse Ox 92 16 98 09/29/19 19:25 09/29/19 19:25 09/29/19 19:25 General: Alert, Oriented x3, No apparent distress HEENT: Atraumatic, Normocephalic. Negative for: Thyromegaly, Lymphadenopathy Cardiovascular: Regular rate, Regular Rhythm Lungs: Clear to auscultation Abdomen: Bowel Sounds Present, Gravid Neurological: Deep Tendon Reflexes 2+/4 and Symmetrical, Neuro grossly intact TRANSCRIBING OPERATORS SUPERVISOR: Normal external genitalia. Negative for: Vulvar lesions Estimated gestational size: Appropriate for gestational size Presentation: Cephalic Cervix Dilation (cm): 4.5 Station: 0 Effacement (%): 80 NST - FHR Rate Baby A Baseline: 140 Variability:: Moderate Accelerations:: 15 x 15 Decelerations:: None NST Reactive:: Yes FHR Category:: Category I Uterine Activity:: Q2-3m Impression/Plan This is a 24 year-old, G [3], P [2001], at 31 3/7 weeks gestational age with labor, Cat I FHR, AGA, hx prior and x1. -Discharged from [facility] in [place] 09/26/19, received both doses of Betamethasone -Magnesium 4g bolus with 2g maintenance for tocolysis -SVE 4.5/80/0 -Cephalic -for TOLAC if progresses -Advised transfer, pt agreeable. Accepted for transfer to [facility] by Dr. TsaiCespedes -Attending physician Dr. Paredes and attending tax compliance representative Dr. Hartman updated on POC.
[2019-09-29] MEDS: Lactated Ringers 1,000 ML 200 ML IV (20:00)
== END 2019-09-29 22:30 | disposition other institution (70) ==
LOC: WPOUT 18:52 → WP 18:53
PROVIDERS: Visit Provider Obstetrics & Gynecology
DX: O60.03 Preterm labor without delivery, third trimester (principal); O34.219 Maternal care for unspecified type scar from previous cesarean delivery; Z3A.31 31 weeks gestation of pregnancy; Z90.49 Acquired absence of other specified parts of digestive tract
CPT/HCPCS: 59050; 80048; 85025; 85384; 86850; 86900; 86901; 99218; J7120; G0378

== ENCOUNTER → 2019-10-31 11:16 | Outpatient (CLI) | payer BC, MEDICAID, SELFPAY | PROVIDERS: Visit Provider Obstetrics & Gynecology | DX: Z36.85 Encounter for antenatal screening for Streptococcus B (principal) | CPT/HCPCS: 87081 ==

== ENCOUNTER 2019-11-08 03:31 | Inpatient (IN) | payer BC, MEDICAID, SELFPAY ==
[2019-11-08] VITALS (64 sets, daily range): BP systolic 86–112; BP diastolic 47–70; PULSE 75–130; RESP 16; TEMP 36.3–37.4; O2SAT 85–100; BMI 22.2
[2019-11-08] MEDS: Lactated Ringers 500 ML 999 ML IV ×4 (03:55→08:15)
[2019-11-08 04:10] LABS: Absolute Lymphocyte Count 1.96 X10^3/uL (0.83-4.51); Absolute Neutrophil Count 10.9 X10^3/uL (2.0-7.7); Basophil# 0.05 X10^3/uL; Basophil% 0.4 % (0-1); Eosinophil# 0.22 X10^3/uL; Eosinophils% 1.6 % (0-5); Hematocrit 32.5 % (37-47); Hemoglobin 9.8 g/dL (12.0-15.0); Lymphocyte # 1.96 X10^3/ul (4.0); Lymphocyte % 13.8 % (19-41); Mean Corp Hgb Conc 30.2 g/dL (32-36); Mean Corpuscular Hgb 22.5 pg (27.0-32.0); Mean Corpuscular Volume 74.7 fL (81-99); Monocyte# 0.92 X10^3/uL; Monocyte% 6.5 % (0-10); NRBC Flagged by Analyzer 0 % (0-5); Neutrophil # 10.88 X10^3/uL (2.7-7.7); Neutrophil % 76.6 % (47-70); Platelet Count 323 K/mm3 (150-450); RBC Distribution Width CV 15.2 % (11.6-14.6); RBC Distribution Width SD 40.7 fl (35.1-43.9); Red Blood Count 4.35 M/mm3 (4.2-5.4); White Blood Count 14.2 K/mm3 (4.4-11.0)
--- NOTE | 2019-11-08 04:24 | HP.PCM_ITS ---
History and Physical Date of Admission: 11/08/19 Subjective: 24 yo at 37/1w, DINA 11/28/19 by 10/30w US, presenting in active labor. Denies LOF, VB. +FM. complicated by: labor with admission in early third trimester (received celestone at 30w), resolved marginal placenta previa, history of depression, trial of labor after section. MEDICAL HX: Denies SURGICAL HX: C/s, cholecystectomy (gallstone pancreatitis after last delivery) ALLERGIES: No Known Drug Allergies MEDICATIONS: hydroxyzine HCl 50 mg tablet One tablet by mouth every 6 hrs iron 325 mg (65 mg iron) tablet One pill by mouth twice a day 28 mg-800 mcg tablet FAMILY HX: Denies pertinent hx SOCIAL HISTORY: Smoking - Never Alcohol Use - denies drinking Employer - [employer] Illicit Drug Use - denies use of street drugs Sexual Activity - ACTIVE [employer] Spouse-Sig Other Name - MIKEMaxwell Tate Cabrera Children Name(s) - Maddison Chris PRIOR DELIVERY HISTORY DEL DATE GEST LAB WT LB WT OZ TYPE ANES LABOR TX 18 Jun 16 40 18 7 5 C-Sec General No Jun 17 39 3 7 7 Vagin Epidural No REVIEW OF SYSTEMS: GENERAL - Denies fever, or chills SKIN - Denies rash, new skin lesions, or change in moles EYES - Denies blurred vision, or change in visual acuity EARS - Denies ear pain, or difficulty hearing NOSE - Denies nasal congestion, discharge, or bleeding MOUTH - Denies sore throat, or difficulty swallowing NECK - Denies pain or swelling RESPIRATORY - Denies shortness of breath, cough, wheezing CARDIOVASCULAR - Denies palpitations, chest pain, orthopnea, PND, peripheral edema, syncope or claudication GASTROINTESTINAL - Denies nausea, vomiting, diarrhea, constipation, Denies abdominal pain, melena and or bright red blood GENITOURINARY - Denies dysuria, frequency of urination, urgency, or hesitancy MUSCULOSKELETAL - Denies joint or muscle pain, or back pain NEUROLOGICAL - Denies localized numbness, weakness, or tingling PSYCHIATRIC - Denies depression, anxiety, substance abuse or suicide attempts ENDOCRINE - Denies heat or cold intolerance, weight loss or gain, increasing thirst HEMATO-IMMUNOLOGIC - Denies easy bruising, bleeding, oral ulcerations or recurrent infections GENETICS SCREENING: Age 35+ years: No Thalassemia: No Neural Tube Defect: FOB cousin Down Syndrome: No HAL-SACHS: No Sickle Cell Disease: No Hemophilia: No Musc. Dystrophy: No Cystic Fibrosis: No-declines screening [place] Chorea: No Mental Retardation: No Fragile X: No Other genetic: No Other defects: No SABs/still births: No Drugs since LMP: No Comments: FOB son of neuroblastoma INFECTION HISTORY: High risk AIDS: No High risk Hepatitis: No Exposed to TB: No Exposed to Herpes: No Rash/viral illness since LMP: No History of STD: No PHYSICAL EXAMINATION General Appearence: 24 yo female in no acute distress Vital Signs: AF, VSS HEENT: NC/AT Heart: RRR without rubs or gallops Lungs: CTA x 2 Abdomen: gravid Pelvis: per RN 6 cm LABS: Rh: A positive GBS: GBS neg 10/30 RPR/HIV/Hepatitis B/Hepatatis C: nonreactive/negative/negative/negative Rubella: Immune Assesment /Plan: 24 yo at 37/1w, DINA 11/28/19 by 10/30w US, admitted in active labor. Patient is here for trial of labor after section. Complicated by: hx of labor in this , TOLAC, resolved marginal placenta previa, history of depression, trial of labor after section. -Admit to labor and delivery -Routine orders -GBS negative. No prophylaxis needed. -Risks and benefits of trial of labor after section discussed with patient, including but not limited to: risk of uterine rupture at <1% and failure of TOLAC. Her first c/s was secondary to OP position per patient; she was fully dilated and pushed but was unable to deliver vaginally. Discussed that this places her at a higher risk for TOLAC failure and that this could occur again. However, she has had one successful in her second . Patient elects to proceed. Consents signed. Questions answered. Operative note reviewed.
[2019-11-08] MEDS: Lactated Ringers 1,000 ML 200 ML IV (04:28)
--- NOTE | 2019-11-08 07:12 | PCM.PN.BLA ---
Progress Note CE 10/100/+2, FHR 110/mod emiliano/+accel/+occasional variable decel. Pt pushing. Will get epidural. Has been pushing 2 hours. Discussed that will push for another 1-2 hrs depending on progress after epidural then will likely need section if progress not made. Patient and partner understand. Questions answered. STROKE Vital Signs/Narrative: Vital Signs Temp Pulse BP Pulse Ox 11/08/19 06:56 83 101/66 11/08/19 06:23 81 99 11/08/19 05:27 98.6 F 83 106/68 98 11/08/19 04:40 87 99 11/08/19 04:03 98.0 F 91 111/70 99
[2019-11-08] MEDS: fentaNYL-bupivacaine (epidural) 100 ML BAG EPIDURAL (07:39)
[2019-11-08] MEDS: Oxytocin 30 units/NS 500 ml 30 UNITS/500 ML IV.SOLN 334 UNITS IV (09:49)
--- NOTE | 2019-11-08 10:01 | PCM.OPRPT ---
Problem List (1) 37 weeks gestation of Status: Acute Vaginal Delivery Maternal Presentation: Active Labor Amniotic Fluid Description: Clear Final DINA: 11/28/19 Final DINA Source: US <20 weeks Gestational age: 37 Weeks and 2 Days Date of Procedure: 11/08/19 Pre-Operative Diagnosis: Labor Post-Operative Diagnosis: S/P vaccuum assisted delivery Surgery/ Procedure Performed: Vacuum Assisted Vaginal Delivery Type of Anesthesia: Epidural Presentation: LOP Placental Delivery Description: Spontaneous Placenta Disposition: [facility] Cord Vessel Description: 3 Vessels Cord Gases drawn per routine: ABG Cord Entanglement: Around neck x 1, loose Drain: Rutledge to straight drain Estimated Blood Loss: 250 A gender: Female (1 minute): 9 (5 minute): 10 Episiotomy Description: None Laceration: 1st degree - left labial Medications given after delivery: IV Pitocin
--- NOTE | 2019-11-08 10:08 | OP.PCM_ITS ---
<Artur Paredes - Last Filed: 11/08/19 10:08> Vaginal Delivery Maternal Presentation: Active Labor Amniotic Membrane Rupture Type: Spontaneous Amniotic Fluid Description: Clear Final DINA: 11/28/19 Final DINA Source: US <20 weeks Gestational age: 37 Weeks and 1 Days [place] doctor who attended delivery (if requested by OB): Cheri Parker Date of Procedure: 11/08/19 Pre-Operative Diagnosis: IUP, Prior Post-Operative Diagnosis: IUP, Prior Type of Anesthesia: Epidural Description of Procedure: Spontaneous vaginal delivery of a viable female infant with Apgars of 8/9 from an occiput anterior presentation with clear amniotic fluid and normal three- vessel placenta. Cord around the neck x1 tight. No episiotomy. 3 cm left labial abrasion repaired with 3-0 Rapide suture under epidural. Kiwi vacuum used x3 gentle pulls from low outlet to expedite delivery of the head after 3+ hours of pushing and deep variable decelerations with increasing maternal fatigue. Head rotated to LOP with delivery. One pop offs. Sponges okay. Delivery physician: Artur Paredes MD. Presentation: Vertex, LOP Placental Delivery Description: Spontaneous Placenta Disposition: [facility] Cord Vessel Description: 3 Vessels Cord Gases drawn per routine: ABG Cord Entanglement: Around neck x 1, tight Estimated Blood Loss: 250 cc A gender: Female (1 minute): 8 (5 minute): 9 Episiotomy Description: None Laceration: Left Mediolateral, 1st degree Medications given after delivery: IV Pitocin Complications: None <Gilda Rousseau - Last Filed: 11/09/19 18:22> Problem List (1) 37 weeks gestation of Status: Acute
[2019-11-08] MEDS: Amnioinfusion- 0.9% NS 1,000 ML IV.SOLN. 1000 ML INTRA-UTER (10:40)
[2019-11-08] MEDS: Acetaminophen 500 MG Tablet 1000 MG PO ×2 (16:05→23:51)
--- NOTE | 2019-11-08 16:20 | NURSING ---
students charting reviewed and used for educational and learning
[2019-11-09 04:04] VITALS: BP 107/68; PULSE 72; RESP 16; TEMP 36.5
--- NOTE | 2019-11-09 06:55 | PCM.PN.OB ---
Subjective: Objective: No over night complaints. Pain well controlled. Minimal lochia. Denies CP, SOB, N/V - Physical Exam Vitals/I&O's: Vital Signs Temp Pulse Resp BP Pulse Ox 97.7 F L 72 16 107/68 97 11/09/19 04:04 11/09/19 04:04 11/09/19 04:04 11/09/19 04:04 11/08/19 19:29 Oxygen Delivery Method Room Air Weight: 142 lb 3.2 oz Body Mass Index (BMI) 22.2 Intake and Output for Last 24 Hours 11/07/19 11/08/19 11/09/19 23:59 23:59 23:59 Intake Total 3362.83 / 3362.83 Output Total 1100 / 1100 Balance 2262.83 / 2262.83 General: Alert, Oriented x3, Cooperative, No apparent distress HEENT: Atraumatic, Normocephalic Oral: Moist Mucosa Neck: Supple Abdomen: Soft, Non Tender, Gravid - uterus firm at umbilicus Psych/Mental Status: Normal Affect, Appropriate, Alert and oriented to time, place, person, mood and affect Current Medications Acetaminophen (Tylenol) 1,000 mg PO Q8H PRN PRN PRN Reason: Pain Score 1-3/10 Last Admin: 11/08/19 23:51 Dose: 1,000 mg Documented by: Bisacodyl (Dulcolax) 10 mg RECTAL UD PRN PRN Reason: If no BM Dibucaine (Dibucaine) 1 applic TOPICAL TID PRN PRN; Protocol PRN Reason: Discomfort Hydrocortisone (Hytone) 1 applic TOPICAL TID PRN PRN; Protocol PRN Reason: Discomfort Ibuprofen (Motrin) 600 mg PO Q6H PRN PRN PRN Reason: Pain Score 1-3/10 Methylergonovine Maleate (Methergine) 0.2 mg IM X1 PRN PRN Reason: Excess bleeding/uterine atony Ondansetron HCl (Zofran) 4 mg IV Q4H PRN PRN PRN Reason: Nausea Senna/Docusate Sodium (Senokot-S, Nita-Colace) 1 - 2 tablet PO DAILY PRN PRN PRN Reason: Constipation Simethicone (Mylicon) 80 mg PO PCHS PRN PRN Reason: Indigestion/Stomach pain Sodium Chloride () 5 - 15 ml IV UD PRN PRN Reason: SALINE FLUSH Medical Necessity - Tobacco Use Smoking Status: Never smoker Assessment/Plan All Active Problems (Last Updated 09/23/19 @ 18:[address] Che Oneal MD) labor (Acute) 30 weeks gestation of (Acute) 31 weeks gestation of (Acute) PPD#1 s/p via VAVD. Pain well controlled. Breast feeding. Unsure on control for home going, r/b/a discussed. Okay to d/c home if baby okay to d/c home
--- NOTE | 2019-11-09 06:59 | DCINST_ITS ---
Discharge Diet: No Restrictions Discharge Activity: Return to Normal Activity, May Shower May resume sexual activity in: 2 weeks Weight Bearing Status: Weight bearing as tolerated Call your doctor if you observe: Fever of 101 or Higher, Shortness of breath, Chest pain, Uncontrolled pain Additional Instructions: If you experience any of the following, contact your healthcare provider. * Bleeding that soaks a pad every hour for 2 hours * Fever 100.4 or higher * Unrelieved incision or abdominal pain * Swelling, redness, discharge or bleeding from your incision or episiotomy site * Your incision begins to separate * Problems urinating (including inability to urinate or burning while urinating). * Visual changes * Severe headache * Flu-like symptoms * Pain or redness in one of both of your breasts * Pain, warmth, tenderness or swelling in your legs, especially the calf area * Frequent nausea and vomiting * Symptoms of depression or anxiety If you experience any of the following, call 911 or go to the nearest Emergency Room. * Chest pain * Problems breathing * Seizure activity * Partial or complete paralysis of a body part, slurred speech, weakness or drooping of the face, or a sudden inability to walk or hold your balance Allergies/Adverse Reactions: Allergies No Known Allergies Allergy (Verified 06/21/18 22:28) Medications to take at Discharge Ferrous Sulfate 325 mg PO BIDCM #60 tab 06/17/17 Pnv No.103/Folic/Om3s/Fish Oil [ Gummies] 2 tab PO DAILY 06/21/18 Please Follow Up With: Gilda Rousseau CNM When: 6 weeks Primary Care Physician: Care Physician,No Primary [Primary Care Provider] - Test Results: Test results from this visit will be discussed in further detail at your follow- up appointment, if applicable.
--- NOTE | 2019-11-09 06:59 | PCM.DCVAG ---
Discharge Diet: No Restrictions Discharge Activity: Return to Normal Activity, May Shower May resume sexual activity in: 2 weeks Weight Bearing Status: Weight bearing as tolerated Call your doctor if you observe: Fever of 101 or Higher, Shortness of breath, Chest pain, Uncontrolled pain Additional Instructions: If you experience any of the following, contact your healthcare provider. Bleeding that soaks a pad every hour for 2 hours Fever 100.4 or higher Unrelieved incision or abdominal pain Swelling, redness, discharge or bleeding from your incision or episiotomy site Your incision begins to separate Problems urinating (including inability to urinate or burning while urinating). Visual changes Severe headache Flu-like symptoms Pain or redness in one of both of your breasts Pain, warmth, tenderness or swelling in your legs, especially the calf area Frequent nausea and vomiting Symptoms of depression or anxiety If you experience any of the following, call 911 or go to the nearest Emergency Room. Chest pain Problems breathing Seizure activity Partial or complete paralysis of a body part, slurred speech, weakness or drooping of the face, or a sudden inability to walk or hold your balance Allergies/Adverse Reactions: Allergies No Known Allergies Allergy (Verified 06/21/18 22:28) Medications to take at Discharge Ferrous Sulfate 325 mg PO BIDCM #60 tab 06/17/17 Pnv No.103/Folic/Om3s/Fish Oil [ Gummies] 2 tab PO DAILY 06/21/18 Please Follow Up With: Gilda Rousseau CNM When: 6 weeks Primary Care Physician: Care Physician,No Primary [Primary Care Provider] - Test Results: Test results from this visit will be discussed in further detail at your follow-up appointment, if applicable.
[2019-11-09 09:10] VITALS: BP 103/64; PULSE 76; RESP 16; TEMP 36.6; O2SAT 99
[2019-11-09] MEDS: Acetaminophen 500 MG Tablet 1000 MG PO (09:13)
== END 2019-11-09 13:00 | disposition home or self-care (01) | DRG 805 ==
LOC: OBT 03:34 → WP 03:44
PROVIDERS: Admitting Provider Student in an Organized Health Care Education/Training Program; Referring Provider Student in an Organized Health Care Education/Training Program; Visit Provider Student in an Organized Health Care Education/Training Program
DX: O76 Abnormality in fetal heart rate and rhythm complicating labor and delivery (principal); O60.14X0 Preterm labor third trimester with preterm delivery third trimester, not applicable or unspecified; Z37.0 Single live birth; O75.81 Maternal exhaustion complicating labor and delivery; O70.0 First degree perineal laceration during delivery; O34.219 Maternal care for unspecified type scar from previous cesarean delivery; O69.1XX0 Labor and delivery complicated by cord around neck, with compression, not applicable or unspecified; Z3A.37 37 weeks gestation of pregnancy
CPT/HCPCS: 59025; 59050; 85025; 86850; 86900; 86901; 99218; J7030; J7120; G0378

== ENCOUNTER 2021-05-20 23:12 | Emergency (ER) | payer OTHER, SELFPAY ==
[2021-05-20 23:12] VITALS: BP 115/75; PULSE 107; RESP 18; TEMP 37.2; O2SAT 100; BMI 19.0
--- NOTE | 2021-05-20 23:48 | US_ITS ---
STUDY: COMPLETE RENAL AND BLADDER ULTRASOUND EXAMINATION OF 0023 HOURS ON 05/21/2021 REASON FOR EXAM: 26-year-old female with right flank pain. TECHNIQUE: Ultrasound evaluation of the kidneys was performed with real-time and static spicer-scale imaging. COMPARISON: None. FINDINGS: RIGHT KIDNEY: Normal location of the right kidney, which is normal in size. The right kidney measures 9.5 cm length by 4.9 cm in AP diameter by 4.2 cm in transverse diameter. There is a normal cortex of the right kidney. The renal cortex measures 1.3 cm. There is no right renal mass or cyst. There are no right renal calculi. There is a mild right hydronephrosis. DISTAL RIGHT URETER: There is non-visualization of the distal right ureter. There is no demonstrated right ureterovesical junction calculus. There is a visualized right ureteral jet; there is no evidence of right ureteral obstruction.. LEFT KIDNEY: Normal location of the left kidney, which is normal in size. The left kidney measures 11.1 cm in length by 4.3 cm in AP diameter by 4.6 cm in transverse diameter. There is a normal cortex of the left kidney. The renal cortex measures 1.37 cm. There is no left renal mass or cyst. There are no left renal calculi. There is a mild left hydronephrosis. DISTAL LEFT URETER: There is non-visualization of the distal left ureter. There is no demonstrated left ureterovesical junction calculus. There is a visualized left ureteral jet; there is no evidence of left ureteral reduction.. BLADDER: The distended urinary bladder has a volume of 216. ml. There is a normal wall thickness of the distended urinary bladder. There is no demonstrated mass within the urinary bladder. There are no demonstrated bladder calculi. US/Kidney and Bladder IMPRESSION: 1. Normal-sized kidneys without cystic or solid mass lesions or calcifications or calculi. 2. Mild bilateral hydronephrosis, but bilateral ureteral urine jets were noted in the bladder suggesting that there is no ureteral obstruction bilaterally. 3. No evidence of renal cortical atrophy bilaterally. 4. Normal bladder. Electronically Signed: Jameel Berry MD at 1:53 EDT ,
--- NOTE | 2021-05-20 23:48 | US_ITS ---
STUDY: SECOND AND THIRD TRIMESTER OBSTETRICAL ULTRASOUND - LIMITED examination of 0034 hours on 05/21/2021 REASON FOR EXAM: Female, 26 years old 20 Weeks gestation. RT FLANK PAIN LMP: PRIOR ULTRASOUND: None. TECHNIQUE: TECHNICAL QUALITY: Adequate. FINDINGS: There is a single intrauterine fetus. The fetus was in variable position (cephalic to transverse) during the examination. There is demonstrated cardiac activity with a heart rate of 160 bpm. There is a normal amniotic fluid volume. The largest amniotic fluid pocket measures 4.7 cm. cm. The HC/AC ratio is 1.16 (normal). The placenta is posterior grade 2 without previa or abruption. . The cervix measures 3.2 cm in length. Closed cervical os. BIOMETRY: BPD: 18: weeks, 6 days HC: 19: weeks, 5 days AC: 20: weeks, 1 days FL: 20: weeks, 0 days Age by LMP: 20 weeks, 2 days. DINA by LMP: . age by current US: 19 weeks, 6 days. DINA by current US: . Estimated weight: 323 grams, +/- 48 grams, 28th percentile. US/OB Limited With Biometrics IMPRESSION: 1. Single fetus and variable position (cephalic to transverse) during the examination. 2. heart rate of 160 bpm. 3. Composite gestational age of 19 weeks and 6 days and gestational age by last menstrual period of 20 weeks and 2 days. 4. Estimated weight of 323 g. 5. Normal-appearing amount of amniotic fluid. The largest pocket measures 4.7 cm. 6. Posterior grade 2 placenta without evidence a placenta previa or abruption. 7. Cervical length of 3.2 cm with a closed cervical os. Electronically Signed: Jameel Berry MD at 2:04 EDT ,
--- NOTE | 2021-05-20 23:50 | EX.ED.DYSGE1 ---
HPI History of Present Illness Chief Complaint: Abd Pain Informant: patient and parent Narrative Narrative: Patient presents with right flank pain that radiates to the right groin. Most of the pain is in the back though. She states this started about 1800 tonight. She thought she may have just been laying wrong on the couch. The pain is definitely made worse by moving or twisting. She denies urinary symptoms. She denies any vaginal discharge or bleeding or fluid loss. She is 20 weeks gestation. She denies uterine pain. She is G4, P3. Last menstrual period was 30 December. She is currently 20 weeks. My understanding it was she was sent up from L&D to be seen. [facility] Medical History Anemia affecting Anxiety Depression Subclinical hypothyroidism Home Medications PNV 082-cmrvf-[id number]-3-fish oil [ Gummies] 2 tab PO DAILY 06/21/18 [History Last Taken 11/07/19] metaxalone [Skelaxin] 800 mg PO TID PRN #12 tab 05/21/21 [Rx Last Taken Unknown] Allergy/AdvReac Type Severity Reaction Status Date / Time No Known Allergies Allergy Verified 05/20/21 23:15 Surgical History History of cholecystectomy Previous section Social History Smoking Status: Never smoker ROS ROS ED Constitutional Constitutional ED: Denies chills or fever(s) ENT ENT ED: Denies rhinorrhea Cardiovascular Cardiovascular: Reports other Details: Not syncopal or presyncopal. ; Denies chest pain or palpitations Respiratory/Chest Respiratory/Chest: Denies cough, dyspnea or sputum Gastrointestinal Gastrointestinal: Reports abdominal pain; Denies diarrhea, nausea or vomiting Genitourinary Genitourinary ED: Denies dysuria, hematuria or urinary frequency Musculoskeletal Musculoskeletal: Reports back pain; Denies neck pain Integumentary Denies rash Neurologic Neurologic: Denies headache(s), paresthesias or weakness Allergic/Immunologic Allergic/Immunologic ED: Denies urticaria EXAM Physical Exam Const Vital Signs: 05/20/21 23:12 Temperature 98.9 F Temperature Source Temporal Pulse Rate 107 H Respiratory Rate 18 Blood Pressure 115/75 Blood Pressure Mean 88 Pulse Ox 100 Oxygen Delivery Method Room Air Positive well nourished and well developed Constitutional Narrative: Patient looks mildly uncomfortable. She is much more comfortable when she is sitting still. If she moves she clearly has exacerbation of the pain. General Appearance ED: well developed HEENT Reports moist mucous membranes Eyes General Eye ED: Negative for pale conjunctiva or scleral icterus Neck no JVD Chest Wall inspection of chest normal and palpation of chest normal Resp normal respiratory effort and clear to auscultation bilaterally Resp Narrative: No pain with breath. Lungs are clear. Effort and Inspection: Negative for pain with movement Auscultation: Negative for rales, rhonchi or wheezes Cardio regular rate, regular rhythm and no murmurs Rate: other Other Details: Her heart rates about 90 when I listen. Its not muffled tones. I hear no murmur. GI normal to inspection, nondistended, normoactive bowel sounds and non-tender GI Narrative: Patient has gravid uterus consistent with her dates. But it is not tender. Her abdomen is actually quite benign to exam. Palpation: soft Back/Spine Back/Spine Narrative: Patient has tenderness along her right paraspinal muscles. Even light skin palpation hurts. She does have some CVA tenderness but it is difficult to separate that versus light touch. I see no skin changes. She also clearly has pain with motion and twisting. Extremity normal to inspection Extremity Narrative: Still pulses x4 are intact and normal. No mottling. General Extremety ED: Negative for edema or tenderness General Extremity: Negative for edema Neuro Neuro Narrative: No paresthesias Sensorium / Orientation: alert; Negative for lethargic or stuporous Psych mental status grossly normal Skin no rashes or lesions noted MDM MDM MDM Narrative Medical decision making narrative: CBC is normal for . Her hemoglobin is slightly low but that is normal physiologic anemia. Electrolytes show no marked abnormalities. Urine shows no sign of infection. Ultrasound OB and renal do not show any surprises. Normal heart rate. Normal placenta. Mild hydronephrosis which is typical at this stage. Patient is feeling better. I discussed the case with Dr. Gonzalez. We discussed Skelaxin and close follow-up. This patient has an appointment on tomorrow. Lab Data Attestation: I reviewed the patient's lab results. Labs: Laboratory Results - last 24 hr 05/21/21 05/21/21 05/21/21 00:01 00:01 01:00 WBC 10.9 RBC 3.87 L Hgb 10.7 L Hct 32.9 L MCV 85.0 MCH 27.6 MCHC 32.5 RDW Std Deviation 42.3 RDW Coeff of Tavon 13.5 Plt Count 293 MPV 9.7 Immature Gran % (Auto) 0.600 Neut % (Auto) 75.1 H Lymph % (Auto) 14.4 L Collin % (Auto) 6.2 Eos % (Auto) 3.3 Baso % (Auto) 0.4 Absolute Neuts (auto) 8.2 H Absolute Lymphs (auto) 1.57 Nucleated RBC % 0 Sodium 138 Potassium 3.4 L Chloride 106 Carbon Dioxide 26.0 Anion Gap 6 BUN 8 Creatinine 0.56 Estim Creat Clear Calc 129.76 Est GFR (MDRD) Af Amer 169 Est GFR (MDRD) Non-Af 139 BUN/Creatinine Ratio 14.2 Glucose 102 Calcium 8.5 Urine Color Yellow Urine Clarity Clear Urine pH 7.0 Ur Specific Secor 1.010 Urine Protein Negative Urine Glucose (UA) Normal Urine Ketones Negative Urine Occult Blood Negative Urine Nitrite Negative Urine Bilirubin Negative Urine Urobilinogen Normal Ur Leukocyte Esterase 100 H Urine RBC 0-5 SEEN Urine WBC 0-5 SEEN Ur Squamous Epith Cells 5-10 SEEN Ur Renal Epithelial Cell 0-5 SEEN Urine Bacteria 2+ Urine Mucus 0 SEEN Radiography Diagnostic Testing: Clinical Impression(s) from Imaging Studies Obstetrics Ultrasound 05/20/21 23:48 IMPRESSION: 1. Single fetus and variable position (cephalic to transverse) during the examination. 2. heart rate of 160 bpm. 3. Composite gestational age of 19 weeks and 6 days and gestational age by last menstrual period of 20 weeks and 2 days. 4. Estimated weight of 323 g. 5. Normal-appearing amount of amniotic fluid. The largest pocket measures 4.7 cm. 6. Posterior grade 2 placenta without evidence a placenta previa or abruption. 7. Cervical length of 3.2 cm with a closed cervical os. Electronically Signed: Jameel Berry MD at 2:04 EDT , Renal Ultrasound 05/20/21 23:48 IMPRESSION: 1. Normal-sized kidneys without cystic or solid mass lesions or calcifications or calculi. 2. Mild bilateral hydronephrosis, but bilateral ureteral urine jets were noted in the bladder suggesting that there is no ureteral obstruction bilaterally. 3. No evidence of renal cortical atrophy bilaterally. 4. Normal bladder. Electronically Signed: Jameel Berry MD at 1:53 EDT , Discharge Plan Triage Chief Complaint: Abd Pain ED Provider: Perry Resendez Dx/Rx/DC Orders Clinical Impression: Acute right flank pain Instructions: ED Flank Pain, Uncertain Cause Prescriptions: New metaxalone [Skelaxin] 800 mg tablet 800 mg PO TID PRN (Reason: muscle pain) Qty: 12 RF: 0 No Action with DHA-Folic Acid 1 EACH tablet,chewable 2 tab PO DAILY RF: 0 Primary Care Provider: Care Physician,No Primary Referrals: Artur Paredes MD [STAFF PHYSICIAN] - Keep Parminder appointment Care Physician,No Primary [Primary Care Provider] - Disposition Disposition: Home, Self Care
[2021-05-20] MEDS: Morphine 2 MG/ML Syringe IV (23:59)
[2021-05-21 00:08] LABS: Absolute Lymphocyte Count 1.57 X10^3/uL (0.83-4.51); Absolute Neutrophil Count 8.2 X10^3/uL (2.0-7.7); Basophil# 0.04 X10^3/uL; Basophil% 0.4 % (0-1); Eosinophil# 0.36 X10^3/uL; Eosinophils% 3.3 % (0-5); Hematocrit 32.9 % (37-47); Hemoglobin 10.7 g/dL (12.0-15.0); Lymphocyte # 1.57 X10^3/ul (0.83-4.51); Lymphocyte % 14.4 % (19-41); Mean Corp Hgb Conc 32.5 g/dL (32-36); Mean Corpuscular Hgb 27.6 pg (27.0-32.0); Mean Platelet Vol. 9.7 fl (6.2-12.0); Monocyte# 0.68 X10^3/uL; Monocyte% 6.2 % (0-10); NRBC Flagged by Analyzer 0 % (0-5); Neutrophil # 8.18 X10^3/uL (2.7-7.7); Neutrophil % 75.1 % (47-70); Platelet Count 293 K/mm3 (150-450); RBC Distribution Width CV 13.5 % (11.6-14.6); RBC Distribution Width SD 42.3 fl (35.1-43.9); Red Blood Count 3.87 M/mm3 (4.2-5.4); White Blood Count 10.9 K/mm3 (4.4-11.0)
[2021-05-21 00:22] LABS: Anion Gap 6 (5-15); BUN 8 mg/dL (7-18); BUN/Creat Ratio 14.2 RATIO (10-20); Calcium,Total 8.5 mg/dL (8.5-10.1); Chloride 106 mmol/L (98-107); Creatinine, Serum 0.56 mg/dL (0.55-1.02); EST Glomerular Filtration Rate 139 mL/min (>60); Est Glom Filt Rate - Afr Amer 169 mL/min (>60); Estimated Creatinine Clearance 129.76 ml/min; Glucose 102 mg/dL (74-106); Potassium 3.4 mmol/L (3.5-5.1); Sodium Level 138 mmol/L (136-145)
[2021-05-21 01:07] LABS: Mucous, Urine 0 SEEN /hpf (<or=2+)
[2021-05-21 01:14] LABS: Color, Urine Yellow (Yellow); Glucose, Dipstick Normal (Normal); Ketone-Dipstick Negative (Negative); Leukocyte Esterase-Dipstick 100 /ul (Negative); Nitrite-Dipstick Negative (Negative); Occult Blood-Urine Negative /ul (Negative); Protein-Dipstick Negative (Negative); Urine Bilirubin Dipstick Negative (Negative); Urine Clarity Clear (Clear); Urine Urobilinogen Normal (Normal)
[2021-05-21 01:21] LABS: Bacteria 2+ /hpf (None Seen); Red Blood Cells-Urine 0-5 SEEN /hpf (0-5); Renal Epithelial Cells 0-5 SEEN /hpf (0-5); Squamous Epithelial Cells - UA 5-10 SEEN /hpf (5-10); White Blood Cells 0-5 SEEN /hpf (0-5)
[2021-05-21 03:46] VITALS: BP 102/68; PULSE 77; RESP 17; O2SAT 100
[2021-05-21] MEDS: Metaxalone 800 MG Tablet PO (03:57)
== END 2021-05-21 03:58 | disposition home or self-care (01) ==
PROVIDERS: Emergency Provider Emergency Medicine; Visit Provider Emergency Medicine
DX: O26.892 Other specified pregnancy related conditions, second trimester (principal); R10.9 Unspecified abdominal pain; Z3A.20 20 weeks gestation of pregnancy; M54.9 Dorsalgia, unspecified; O99.012 Anemia complicating pregnancy, second trimester
CPT/HCPCS: 76770; 76816; 80048; 81001; 85025; 96361; 96374; 99284; J7030; A4216

== ENCOUNTER → 2021-07-17 | Outpatient (CLI) | payer OTHER, SELFPAY ==
[2021-07-17 10:33] LABS: Hematocrit 31.5 % (37-47); Hemoglobin 9.8 g/dL (12.0-15.0); Mean Corp Hgb Conc 31.1 g/dL (32-36); Mean Corpuscular Hgb 26.1 pg (27.0-32.0); Mean Corpuscular Volume 83.8 fL (81-99); Mean Platelet Vol. 9.6 fl (6.2-12.0); Platelet Count 321 K/mm3 (150-450); RBC Distribution Width CV 12.9 % (11.6-14.6); RBC Distribution Width SD 38.5 fl (35.1-43.9); Red Blood Count 3.76 M/mm3 (4.2-5.4); White Blood Count 8.8 K/mm3 (4.4-11.0)
[2021-07-17 11:07] LABS: Glucose Challenge Gest 1H 50g 115 mg/dL (70-140)
[2021-07-17 11:12] LABS: Fetal Fibronectin Negative
== END | disposition home or self-care (01) ==
PROVIDERS: Visit Provider Obstetrics & Gynecology
DX: O60.03 Preterm labor without delivery, third trimester (principal); Z3A.00 Weeks of gestation of pregnancy not specified
CPT/HCPCS: 36415; 82731; 82950; 85027

== ENCOUNTER 2021-08-16 03:30 | Outpatient (CLI) | payer OTHER, SELFPAY ==
[2021-08-16 03:43] VITALS: BMI 21.9
[2021-08-16 03:44] VITALS: BP 105/67; PULSE 82
[2021-08-16 03:45] VITALS: TEMP 36.6
[2021-08-16 08:02] VITALS: BP 97/54; PULSE 78; TEMP 37
--- NOTE | 2021-08-16 09:38 | HP.PCM.OB_ITS ---
History and Physical Date of Admission: 08/16/21 Chief complaint: Decreased movement, pelvic pressure History of present illness: 26-year-old G4, P3 at 32 weeks and 5 days with DINA 10/06/2021 by LMP arrives with decreased movement for majority of the day along with pelvic pressure baby feels low in the pelvis. Patient denies headache, visual changes, chest pain, shortness of breath, nausea vomit, right upper quadrant pain. complicated by history of section then successful x2 Obstetric history: G1: 40-week primary section for failure to progress female 05/2017 G2: 39-week male 05/2018 G3: 37-week female 10/2019 PTL/PTC sent to [place] twice G4: Current Past medical history: None Medications: vitamin Past surgical history: section, cholecystectomy Allergies: No known drug allergies Social history: Denies smoking, alcohol use, drug use Family history: Denies his DVT or PE Review of systems: Besides above pertinent positives a full review of systems was performed and found to be negative Physical exam: Vitals: Blood pressure 97/54 pulse 78 temp 98.6 Fahrenheit General: Normal-appearing no acute distress HEENT: Normocephalic/atraumatic no cervical lymphadenopathy Cardiac/respiratory: No use of accessory muscles, nonlabored breathing Abdomen: Soft, nontender, gravid Pelvic exam: Cervix 2-3/80/-2 Extremities: No peripheral edema normal peripheral pulses Psych: Normal affect normal demeanor nonpressured speech NST: 130/moderate variability/positive accelerations/negative decelerations reactive NST Bedside ultrasound: Breech presentation, KLAUS subjectively within normal limits, movement noted, practice breathing noted, tone noted Assessment plan: 26-year-old G4, P3 at 32 weeks and 5 days with decreased movement. Reactive NST, modified BPP within normal limits. All reassuring. Patient has felt some movement since arrival. Educated patient on movement including kick counts, discussed chronic decreased movement and testing all reassuring. We will schedule in the office for testing on Wednesday. Patient with pelvic pressure, contractions but cervical exam no change in greater than 5 hours along with minimal contractions no signs of labor. Patient's pelvic pressure is much improved. All reassuring. Patient status post Celestone on 08/14 and 08/15. Okay to discharge home with follow-up at scheduled appointments
--- NOTE | 2021-08-16 09:44 | DCINST_ITS ---
Discharge Instructions Diet Discharge Diet: No restrictions Activity Discharge Activity: Return to Normal Activity, May Drive and May Shower May resume sexual activity in: No Restrictions Weight Bearing Status: Weight bearing as tolerated Dressing / Incision Call your doctor if your incision/area has: Continuous Slow Oozing and Foul Smelling Discharge Call your doctor if you observe: Fever of 101 or Higher, Shortness of breath and Chest pain Follow Up Care Please Follow Up With: Prince Gerber MD When: within 1 week Test Results: Test results from this visit will be discussed in further detail at your follow- up appointment, if applicable. Discharge Plan Admission Reason For Visit: R/O PRE TERM LABOR Attending Provider: Prince Gerber Primary Care Provider: Care Physician,No Primary Instructions Patient Instructions: Kick Counts, ED False Labor, OB Triage: Return to Hospital or Notify Physician if you Experience: Discharge Orders/Prescriptions Prescriptions: No Action with DHA-Folic Acid 1 EACH tablet,chewable 2 tab PO DAILY metaxalone [Skelaxin] 800 mg tablet 800 mg PO TID PRN (Reason: muscle pain) Qty: 12 0RF Referrals / Follow Up: Care Physician,No Primary [Primary Care Provider] - Disposition Patient Disposition: Home, Self Care
== END 2021-08-16 09:40 | disposition home or self-care (01) ==
LOC: WPOUT 03:33 → WP 03:34
PROVIDERS: Visit Provider Obstetrics & Gynecology
DX: O36.8130 Decreased fetal movements, third trimester, not applicable or unspecified (principal); O34.219 Maternal care for unspecified type scar from previous cesarean delivery; Z3A.32 32 weeks gestation of pregnancy
CPT/HCPCS: 59050; 76815; 99218; G0378

== ENCOUNTER 2021-09-08 21:28 | Observation (INO) | payer OTHER, MEDICAID, SELFPAY ==
[2021-09-08] VITALS (9 sets, daily range): BP systolic 105–119; BP diastolic 61–71; PULSE 80–121; TEMP 36.4–37.1; O2SAT 98–100; BMI 21.9
[2021-09-08] MEDS: Lactated Ringers 1,000 ML 999 ML IV (18:00)
[2021-09-08 18:17] LABS: Absolute Lymphocyte Count 0.93 X10^3/uL (0.83-4.51); Absolute Neutrophil Count 6.1 X10^3/uL (2.0-7.7); Basophil# 0.01 X10^3/uL; Basophil% 0.1 % (0-1); Eosinophil# 0.04 X10^3/uL; Eosinophils% 0.5 % (0-5); Hematocrit 33.1 % (37-47); Hemoglobin 10.1 g/dL (12.0-15.0); Lymphocyte # 0.93 X10^3/ul (0.83-4.51); Lymphocyte % 12.3 % (19-41); Mean Corp Hgb Conc 30.5 g/dL (32-36); Mean Corpuscular Hgb 23.9 pg (27.0-32.0); Mean Corpuscular Volume 78.3 fL (81-99); Mean Platelet Vol. 9.9 fl (6.2-12.0); Monocyte# 0.45 X10^3/uL; Monocyte% 5.9 % (0-10); NRBC Flagged by Analyzer 0 % (0-5); Neutrophil # 6.11 X10^3/uL (2.7-7.7); Neutrophil % 80.5 % (47-70); Platelet Count 284 K/mm3 (150-450); RBC Distribution Width CV 15.6 % (11.6-14.6); RBC Distribution Width SD 43.7 fl (35.1-43.9); Red Blood Count 4.23 M/mm3 (4.2-5.4); White Blood Count 7.6 K/mm3 (4.4-11.0)
--- NOTE | 2021-09-08 19:25 | HP.PCM.OB_ITS ---
History and Physical Date of Admission: 09/08/21 HPI: 26-year-old G4, P3 at 36/0 weeks, DINA 10/06/2021 by LMP, presenting with contractions. States contractions are this afternoon are very strong accompanied by pelvic pressure. States that contractions have spaced some and are a little bit less painful at this time. Denies leaking of fluid, vaginal bleeding. Reports movement. Denies headache, vision changes, chest pain or shortness of breath, nausea or vomiting, diarrhea constipation, fevers or chills. complicated by: Prior section with 2 successful vaginal after section, history of depression, history of ocular migraines, history of labor status post Celestone on August 14 and August 15 [employer] history: G1 06/16/17 Female 40 wks 18 hrs C-Sect G2 06/22/18 Male 39 wks 3 hrs Vaginal G3 11/08/19 Female 37 wks 2 hrs Vacuum Medical history: 1. History of depression Surgical history: 1. section 2. Cholecystectomy Social history: Denies tobacco, alcohol, drug use Family history: Noncontributory Allergies: No known drug allergies Review of system: Negative otherwise stated above Physical exam: Vital signs: Temp 98.2 ?F, pulse 80, oxygen saturation 99% on room air, blood pressure 109/67 General: No acute distress HEENT: Normocephalic/atraumatic Cardiorespiratory: No increased effort Abdomen: Soft, nontender, gravid Extremities: No edema Neurologic: No focal deficits, cranial nerves II through XII grossly intact Musculoskeletal: Strength 5 out of 5 throughout all extremities Cervical exam: 4 cm / 70/-3 FHR: 135/mod emiliano/+accel/no decel [place]: irregular Assessment/plan: 26-year-old G4, P3 at 36/0 weeks presenting with contractions. ?Patient was found to be 4 cm in office on 09/04, patient has been 4 cm since admission to triage. We will recheck additionally in 2 hours. If unchanged and status is reassuring, patient comfortable will likely discharge home. ?Rapid GBS collected. 1 L LR bolus given. ?Bedside ultrasound completed, cephalic position confirmed.
[2021-09-08 20:19] LABS: Group B Strep DNA By PCR Negative (Negative); Internal Control PASS; Probe Check PASS; Specimen Processing Control PASS
[2021-09-08] MEDS: Lactated Ringers 1,000 ML 200 ML IV (22:00)
[2021-09-09] VITALS (9 sets, daily range): BP systolic 93–104; BP diastolic 51–65; PULSE 72–100; TEMP 36.2–36.7; O2SAT 93–100
[2021-09-09] MEDS: Lactated Ringers 1,000 ML 200 ML IV (02:52)
--- NOTE | 2021-09-09 07:28 | PN.OBGYN_ITS ---
Subjective Subjective Patient seen and examined. Reports unchanged pelvic pressure. Contractions have spaced. Has had some bloody mucus with wiping. No leaking. Objective Data Objective Data Vital Signs: Vital Signs Temp Pulse BP Pulse Ox 97.3 F L 93 104/65 99 09/09/21 06:46 09/09/21 06:47 09/09/21 06:46 09/09/21 06:47 Weight: 61.507 kg Body Mass Index (BMI) 21.9 Intake & Output: Intake and Output for Last 24 Hours 09/07/21 09/08/21 09/09/21 23:59 23:59 23:59 Intake Total 1000 / 1000 2383.33 / 2383.33 Output Total 600 / 600 Balance 1000 / 1000 1783.33 / 1783.33 Lab / Micro Data Attestation: I reviewed the patient's lab results. Result Diagrams: 09/08/21 18:00 Labs: Laboratory Results - last 24 hr 09/08/21 18:00: WBC 7.6, RBC 4.23, Hgb 10.1 L, Hct 33.1 L, MCV 78.3 L, MCH 23.9 L, MCHC 30.5 L, RDW Std Deviation 43.7, RDW Coeff of Tavon 15.6 H, Plt Count 284, MPV 9.9, Immature Gran % (Auto) 0.700, Neut % (Auto) 80.5 H, Lymph % (Auto) 12.3 L, [place] % (Auto) 5.9, Eos % (Auto) 0.5, Baso % (Auto) 0.1, Absolute Neuts (auto) 6.1, Absolute Lymphs (auto) 0.93, Nucleated RBC % 0 09/08/21 18:00: Blood Type A POSITIVE, Antibody Screen NEGATIVE 09/08/21 18:00: Group B Strep DNA Negative, Specimen Comment Not Reportable Micro: Microbiology 09/08/21 21:40 Nasal Secretion SARS-CoV-2 Antigen (Rapid) - Final Physical Exam Const alert, oriented x3 and no apparent distress HEENT normocephalic Head and Scalp: atraumatic Resp normal respiratory effort Cardio regular rate GI soft to palpation and non-tender Inspection: gravid Narrative: CE 4/70/-1 Extremity normal to inspection and no pedal edema NST FHR Rate Baby A Baseline: 135 Variability:: Moderate Accelerations:: 15 x 15 Decelerations:: None NST Reactive:: Yes FHR Category:: Category I Uterine Activity:: q10 Assessment & Plan (1) History of section: PLAN: 36/1w. Prior section. Patient arrived to labor and delivery yesterday with complaints of contractions. She is found to be 4 cm, which was unchanged from exam on 09/04 in office. Patient was monitored and rechecked, at around 2130 recheck was 5.5 cm per RN. Therefore decision for admission was made. Overnight patient has been comfortable, contractions have spaced. Cervical exam this morning done by myself was unchanged from my prior check yesterday evening of 4 cm. status has been reassuring. 1 variable deceleration noted approximately 05 30 this morning, all other tracing has been category 1 and reassuring with moderate variability and accelerations. Therefore overall status is reassuring at this time. Discussed plan of care with patient and her . Discussed discharge home at this time as she has not made cervical change in over 12 hours, also offered to monitor further until noon today and if no change will discharge then. Patient does have history of fast labors, however does not appear to be in labor at this time. Discussed that it is unpredictable whether or not she would return later today in the room or in a few weeks. Discussed that as she is at 36 weeks we are unable to augment or induce her labor. Discussed the bloody mucous is likely secondary to multiple cervical exams. To call or return for increased bleeding, leaking of fluid, regular contractions. Follow up in office tomorrow for US/NST/PNV. All questions answered. Patient and comfortable leaving at this time.
== END 2021-09-09 07:28 | disposition home or self-care (01) ==
LOC: WP 09-09 07:28
PROVIDERS: Admitting Provider Student in an Organized Health Care Education/Training Program; Referring Provider Student in an Organized Health Care Education/Training Program; Visit Provider Student in an Organized Health Care Education/Training Program
DX: O47.03 False labor before 37 completed weeks of gestation, third trimester (principal); O34.219 Maternal care for unspecified type scar from previous cesarean delivery; Z3A.36 36 weeks gestation of pregnancy
CPT/HCPCS: 96360; 96361 ×2; 36415; 59025; 59050; 76815; 85025; 86850; 86900; 86901; 87081; 87653; 87811; 99218; J7120; G0378

== ENCOUNTER 2021-09-17 23:40 | Outpatient (CLI) | payer OTHER, MEDICAID, SELFPAY ==
[2021-09-18 00:23] VITALS: PULSE 78; O2SAT 99
[2021-09-18 00:25] VITALS: TEMP 36.8
[2021-09-18 00:30] VITALS: TEMP 36.8; O2SAT 98
[2021-09-18 00:35] VITALS: BMI 22.1
[2021-09-18 01:10] LABS: ROM Internal Control Test YES-OK TO RESULT pt. (Internal QC); ROM Patient Test Negative (Negative)
[2021-09-18 01:23] VITALS: BP 122/68; PULSE 81
--- NOTE | 2021-09-18 09:12 | OB.TRI.NOTE ---
HPI - General General Date of Service: 09/17/21 HPI Narrative JENNY DASH, is a 26 F who presents at 37+ weeks gestation with some contractions and leaking of fluid. PFSH PFSH Medical History (Updated 09/18/21 @ 09:[address] Artur Paredes MD) Anemia affecting Anxiety Depression Placental abnormality depression Subclinical hypothyroidism Home Medications 103-folic acid 400 mcg-omeg3 32.5 mg-dha-fish oil chew tablet ( with DHA and Folic Acid) 2 tab PO DAILY 06/21/18 [History Last Taken 09/08/21] metaxalone 800 mg tablet (Skelaxin) 800 mg PO TID PRN muscle pain #12 tabs 05/21/21 [Rx Last Taken Unknown] ferrous sulfate 325 mg (65 mg iron) tablet (iron) mg 09/08/21 [History Last Taken Unknown] Allergy/AdvReac Type Severity Reaction Status Date / Time No Known Allergies Allergy Verified 09/08/21 17:21 Surgical History (Updated 09/09/21 @ 07:[address] Alisha Gerber, DO) History of cholecystectomy Previous section Social History Smoking Status: Never smoker History Elective abortions Hx Para 3 Spontaneous abortions Hx # Term Pregnancies Ectopic pregnancies Hx # Pregnancies Multiple births # of living children NST FHR Rate Baby A NST Reactive:: Yes FHR Category:: Category I Assessment & Plan (1) False labor, antepartum: PLAN: 37+ week intrauterine with false labor. No change in cervix after monitoring for approximately an hour. Reactive nonstress test. ROM test negative. Discharged to home with routine instructions.
== END 2021-09-18 01:50 | disposition home or self-care (01) ==
LOC: WPOUT 23:44 → WP 23:44
PROVIDERS: Visit Provider Obstetrics & Gynecology
DX: O47.1 False labor at or after 37 completed weeks of gestation (principal); Z3A.37 37 weeks gestation of pregnancy; O99.013 Anemia complicating pregnancy, third trimester
CPT/HCPCS: 59025; 59050; 84112; 99218; G0378

== ENCOUNTER 2021-09-24 07:20 | Inpatient (IN) | payer OTHER, SELFPAY ==
[2021-09-24] VITALS (40 sets, daily range): BP systolic 93–118; BP diastolic 50–75; PULSE 64–120; RESP 16–18; TEMP 36.3–36.9; O2SAT 95–100; BMI 21.4
[2021-09-24] MEDS: Lactated Ringers 1,000 ML 50 ML IV (08:15)
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
[2021-09-24 08:33] LABS: Absolute Lymphocyte Count 1.39 X10^3/uL (0.83-4.51); Absolute Neutrophil Count 6.6 X10^3/uL (2.0-7.7); Basophil# 0.03 X10^3/uL; Basophil% 0.3 % (0-1); Eosinophils% 1.1 % (0-5); Hematocrit 29.9 % (37-47); Hemoglobin 9.3 g/dL (12.0-15.0); Lymphocyte # 1.39 X10^3/ul (0.83-4.51); Mean Corp Hgb Conc 31.1 g/dL (32-36); Mean Corpuscular Hgb 23.5 pg (27.0-32.0); Mean Corpuscular Volume 75.7 fL (81-99); Mean Platelet Vol. 9.2 fl (6.2-12.0); Monocyte# 0.54 X10^3/uL; Monocyte% 6.2 % (0-10); NRBC Flagged by Analyzer 0 % (0-5); Neutrophil # 6.55 X10^3/uL (2.7-7.7); Neutrophil % 75.3 % (47-70); Platelet Count 297 K/mm3 (150-450); RBC Distribution Width CV 15.8 % (11.6-14.6); RBC Distribution Width SD 42.8 fl (35.1-43.9); Red Blood Count 3.95 M/mm3 (4.2-5.4); White Blood Count 8.7 K/mm3 (4.4-11.0)
[2021-09-24] MEDS: LACTATED RINGERS 500 ML 999 ML IV ×2 (08:35→09:34)
[2021-09-24] MEDS: Oxytocin 30 units/NS 500 ml 30 UNITS/500 ML IV.SOLN IV (08:48)
[2021-09-24] MEDS: fentaNYL-bupivacaine (epidural) 100 ML BAG EPIDURAL (09:38)
[2021-09-24] MEDS: Oxytocin 30 units/NS 500 ml 30 UNITS/500 ML IV.SOLN 334 UNITS IV (11:53)
--- NOTE | 2021-09-24 12:07 | OP.PCM_ITS ---
Vaginal Delivery Maternal Presentation Maternal Presentation: Elective Induction (Intra-Uterine Growth Restriction) Type of Induction: Amniotomy Operative Information Date of Procedure: 09/24/21 Pre-Operative Diagnosis: IUP, Prior Section Post-Operative Diagnosis: IUP, Prior Section Surgery / Procedure Performed: Spontaneous Vaginal Delivery and Type of Anesthesia: Epidural Estimated Blood Loss: 250 cc Findings Description of Procedure: Spontaneous vaginal delivery of a viable female with Apgars of 9/9 from an occiput anterior presentation with clear amniotic fluid and normal three- vessel placenta. Successful . No episiotomy or laceration. Adherent membranes removed with gentle curetting of uterus with banjo. Sponges okay. Delivery physician: Artur Paredes MD. Presentation: Vertex Amniotic Membrane Rupture Type: Spontaneous Amniotic Fluid Description: Clear Placental Delivery Description: Spontaneous and Curettage (With banjo for adherent membranes) Placenta Disposition: [facility] Cord Vessel Description: 3 Vessels Cord Entanglement: None and - (Cord around abdomen loose) Infant A Gender: Female (1 minute): 9 (5 minute): 9 Post Vaginal Delivery Medications Given After Delivery: IV Pitocin Episiotomy Description: None Laceration: None Complication Complications: None
[2021-09-24] MEDS: 0.9% Saline Lock 10 ML Syringe IV (15:54)
--- NOTE | 2021-09-24 19:20 | NURSING ---
Social work consult ordered for pt. as hx. of depression. Pt. has 3 children at home, ages 4,3, almost 2. Pt. talking about family throughout day today. Reports FRANCE's mother has been living with them x1 month to help with children and new baby (has hx. of labor with prev. delivery and with this ). Pt's mother called in just after she delivered, but FRANCE talked with mother like Mary was still , reporting to mother that she was getting an NST to watch the baby and that the was going well. Reported that mother is a lot and that they couldn't deal with her drama right now. Reported that she has wanted nothing to do with this baby, and in the last couple of weeks has been trying to become very involved. Reports that the mother has tried to draw up paperwork that if something happens to Mary, that she would get children instead of Tate HOUGH. Pt. reports no hx. of abuse from Tate. Tate and Mary also report that they have family that lives very close, but reports that there may be a little too much drink involved to care for kids. Mary had high depression scale when starting care in office, appears appropriate here. Talked about staying 2 days due to anything is a vacation including groceries. Once kids here to visit danni, she reports they may go home tomorrow. Talking with kids, loving on kids while they were here.
[2021-09-25] VITALS (10 sets, daily range): BP systolic 101–116; BP diastolic 55–70; PULSE 70–88; RESP 14–16; TEMP 36.4–37.2; O2SAT 85–99
--- NOTE | 2021-09-25 07:03 | DCINST_ITS ---
Discharge Instructions Diet Discharge Diet: No restrictions Activity Discharge Activity: Return to Normal Activity, May Drive and May Shower May resume sexual activity in: 4-6 weeks Weight Bearing Status: Weight bearing as tolerated Dressing / Incision Call your doctor if your incision/area has: Continuous Slow Oozing and Foul Smelling Discharge Call your doctor if you observe: Fever of 101 or Higher, Shortness of breath and Chest pain Follow Up Care Please Follow Up With: Prince Gerber MD When: follow up 4 to 6 weeks Test Results: Test results from this visit will be discussed in further detail at your follow- up appointment, if applicable. Discharge Plan Admission Admit Date/Time: 09/24/21 07:20 Attending Provider: Artur Paredes Primary Care Provider: Care Physician,No Primary Discharge Orders/Prescriptions Prescriptions: No Action with DHA-Folic Acid 1 EACH tablet,chewable 2 tab PO DAILY ferrous sulfate [iron] 325 mg (65 mg iron) Tablet 325 mg PO BID Referrals / Follow Up: Care Physician,No Primary [Primary Care Provider] - Disposition Discharge Orders: Discharge Patient (Routine); Ordered 09/25/21 Ordered By: Dr. Prince Gerber
--- NOTE | 2021-09-25 07:04 | PN.OBGYN_ITS ---
Subjective Subjective Overnight complaints. Pain well controlled. Objective Data Objective Data Vital Signs: Vital Signs Temp Pulse Resp BP Pulse Ox O2 Del Method 99.0 F 70 16 101/58 L 98 Room Air 09/25/21 05:54 09/25/21 05:54 09/25/21 05:54 09/25/21 05:54 09/25/21 05:54 09/25/21 05:54 Oxygen Delivery Method Room Air Weight: 136 lb 14.513 oz Body Mass Index (BMI) 21.4 Intake & Output: Intake and Output for Last 24 Hours 09/23/21 09/24/21 09/25/21 23:59 23:59 23:59 Intake Total 2008.61 / 61 Output Total 1200 / 1200 Balance 809.61 / 809.61 Lab / Micro Data Result Diagrams: 09/24/21 08:15 Labs: Laboratory Results - last 24 hr 09/24/21 08:15: WBC 8.7, RBC 3.95 L, Hgb 9.3 L, Hct 29.9 L, MCV 75.7 L, MCH 23.5 L, MCHC 31.1 L, RDW Std Deviation 42.8, RDW Coeff of Tavon 15.8 H, Plt Count 297, MPV 9.2, Immature Gran % (Auto) 1.100 H, Neut % (Auto) 75.3 H, Lymph % (Auto) 16.0 L, [place] % (Auto) 6.2, Eos % (Auto) 1.1, Baso % (Auto) 0.3, Absolute Neuts (auto) 6.6, Absolute Lymphs (auto) 1.39, Nucleated RBC % 0 09/24/21 08:15: Blood Type A POSITIVE, Antibody Screen NEGATIVE Micro: Microbiology 09/24/21 08:15 Nasal Secretion SARS-CoV-2 Antigen (Rapid) - Final Physical Exam Const alert, oriented x3, no apparent distress, average body habitus, healthy appearing and well nourished HEENT normocephalic Eyes PERRL Neck full ROM Resp normal respiratory effort, no retractions and no use of accessory muscles GI GI Narrative: Soft, nontender, uterus firm below umbilicus Extremity normal to inspection, full ROM and no clubbing, cyanosis or edema Neuro moves all extremities and no focal motor deficits Psych mental status grossly normal, affect normal, speech normal and activity/motor behavior normal Assessment & Plan (1) , delivered: PLAN: day 1. Breast-feeding. Pain well controlled. 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
[2021-09-26 02:09] VITALS: BP 101/58; PULSE 66; PULSE 68; RESP 16; TEMP 36.5; O2SAT 97; O2SAT 98
--- NOTE | 2021-09-26 08:17 | PCM.PN.OB ---
Subjective Subjective Feeling well. Lochia minimal. Feeding going well. Objective Data Objective Data Vital Signs: Vital Signs Temp Pulse Resp BP Pulse Ox O2 Del Method 97.7 F L 68 16 101/58 L 97 Room Air 09/26/21 02:09/26/21 02:09 09/26/21 02:09/26/21 02:09 09/26/21 02:09/26/21 02:09 Oxygen Delivery Method Room Air Weight: 62.1 kg Body Mass Index (BMI) 21.4 Intake & Output: Intake and Output for Last 24 Hours 09/24/21 09/25/21 09/26/21 23:59 23:59 23:59 Intake Total 2008.61 / 61 Output Total 1200 / 1200 Balance 809.61 / 809.61 Lab / Micro Data Attestation: I reviewed the patient's lab results. Result Diagrams: 09/24/21 08:15 Micro: Microbiology 09/24/21 08:15 Nasal Secretion SARS-CoV-2 Antigen (Rapid) - Final Physical Exam Const alert, oriented x3 and no apparent distress HEENT normocephalic Head and Scalp: atraumatic Neck full ROM Resp normal respiratory effort Cardio regular rate GI normal to inspection, nondistended, normoactive bowel sounds GI Narrative: Uterus 2 cm below umbilicus Back/Spine normal ROM Extremity normal to inspection Extremity Narrative: Minimal pedal edema Neuro no focal motor deficits and no sensory deficits noted Psych mental status grossly normal and affect normal Assessment & Plan (1) , delivered: PLAN: day 2 status post successful vaginal after . Home today. Follow-up 2 and 6 weeks .
[2021-09-26 09:03] VITALS: BP 107/64; PULSE 92; RESP 16; TEMP 36.7
[2021-09-26 09:04] VITALS: BP 107/64; PULSE 92
--- NOTE | 2021-11-11 11:52 | NURSING ---
Called to confirm information for breast pump prescription 11/11/21
== END 2021-09-26 10:15 | disposition home or self-care (01) | DRG 807 ==
PROVIDERS: Obstetrics & Gynecology; Admitting Provider Obstetrics & Gynecology; Visit Provider Obstetrics & Gynecology
DX: O34.219 Maternal care for unspecified type scar from previous cesarean delivery (principal); Z37.0 Single live birth; O36.5930 Maternal care for other known or suspected poor fetal growth, third trimester, not applicable or unspecified; O99.02 Anemia complicating childbirth; O69.2XX0 Labor and delivery complicated by other cord entanglement, with compression, not applicable or unspecified; Z3A.38 38 weeks gestation of pregnancy
CPT/HCPCS: 59025; 59050; 85025; 86850; 86900; 86901; 87426; 99218; J7120; A4216; G0378

== ENCOUNTER → 2021-11-17 | Outpatient (CLI) | payer OTHER, SELFPAY ==
[2021-11-17 12:45] LABS: hCG Titer Quant., Serum < 1 mIU/mL (1-3)
== END | disposition home or self-care (01) ==
LOC: WOBLAB 10:48
PROVIDERS: Visit Provider Student in an Organized Health Care Education/Training Program
DX: Z39.2 Encounter for routine postpartum follow-up (principal)
CPT/HCPCS: 36415; 84702

== ENCOUNTER 2023-08-26 22:08 | Outpatient (CLI) | payer MEDICAID, SELFPAY ==
[2023-08-26 22:22] VITALS: PULSE 225; O2SAT 100
[2023-08-26 22:27] VITALS: PULSE 99; O2SAT 99
[2023-08-26 22:28] VITALS: BP 107/62; PULSE 95
[2023-08-26 22:32] VITALS: PULSE 116; O2SAT 100
[2023-08-26 22:41] VITALS: BMI 21.9
[2023-08-26] MEDS: Lactated Ringers 1,000 ML 999 ML IV (23:25)
[2023-08-27] VITALS (13 sets, daily range): BP systolic 103–117; BP diastolic 57–70; PULSE 92–229; RESP 16; TEMP 37.1; O2SAT 97–100
[2023-08-27 00:26] LABS: Color, Urine Yellow (Yellow); Glucose, Dipstick Normal (Normal); Leukocyte Esterase-Dipstick 500 /ul (Negative); Nitrite-Dipstick Negative (Negative); Occult Blood-Urine 10 /ul (Negative); Protein-Dipstick 30 mg/dl (Negative); Urine Bilirubin Dipstick Negative (Negative); Urine Clarity Sl. Cloudy (Clear); Urine Urobilinogen Normal (Normal)
[2023-08-27 00:34] LABS: Ketone-Dipstick 150 mg/dl (Negative)
[2023-08-27 00:37] LABS: Absolute Neutrophil Count 7.2 X10^3/uL (2.0-7.7); Basophil# 0.04 X10^3/uL; Basophil% 0.5 % (0-1); Eosinophil# 0.11 X10^3/uL; Eosinophils% 1.3 % (0-5); Hematocrit 31.3 % (37-47); Hemoglobin 9.3 g/dL (12.0-15.0); Lymphocyte % 5.8 % (19-41); Mean Corp Hgb Conc 29.7 g/dL (32-36); Mean Corpuscular Volume 77.3 fL (81-99); Mean Platelet Vol. 10.6 fl (6.2-12.0); Monocyte# 0.67 X10^3/uL; Monocyte% 7.7 % (0-10); NRBC Flagged by Analyzer 0.3 % (0-5); Neutrophil # 7.16 X10^3/uL (2.7-7.7); Neutrophil % 82.3 % (47-70); POSITIVE DIFFERENTIAL YES; Platelet Count 311 K/mm3 (150-450); RBC Distribution Width CV 15.4 % (11.6-14.6); RBC Distribution Width SD 42.6 fl (35.1-43.9); Red Blood Count 4.05 M/mm3 (4.2-5.4); White Blood Count 8.7 K/mm3 (4.4-11.0)
[2023-08-27] MEDS: Nitrofurantoin Macrocrystals 100 MG Capsule PO (01:32)
[2023-08-27] MEDS: Lactated Ringers 1,000 ML 999 ML IV (01:32)
--- NOTE | 2023-08-27 03:35 | EKG12_ITS ---
Test Reason : CP Blood Pressure : / mmHG Vent. Rate : 093 BPM Atrial Rate : 093 BPM P-R Int : 108 ms QRS Dur : 082 ms QT Int : 354 ms P-R-T Axes : 023 043 -12 degrees QTc Int : 440 ms Sinus rhythm with short TX Otherwise normal ECG No previous ECGs available Confirmed by Isiah Sanders ([id number]), book or script editor MIRYAM MARTINO ([id number]) on 08/30/2023 10:38:08 AM Referred By: Rhianna Flores Confirmed By:Isiah Sanders
--- NOTE | 2023-08-27 03:50 | PCM.HOSP.N ---
Hospitalist Note Contacted by L+D staff. Requested to review EKG. EKG with NSR without acute evidence of ischemia. Signed and returned to L+D. Specifically asked nursing staff if formal consult was requested and she stated no, only the EKG to be reviewed at this time.
[2023-08-27] MEDS: Acetaminophen 500 MG Tablet 1000 MG PO (04:33)
--- NOTE | 2023-08-27 07:04 | OB.TRI.HP_ITS ---
HPI - General HPI Narrative JENNY DASH, is a 28 F at who presents to triage with lower back pain and cramps. She spent the day in the heat at [place]. Positive movement and denies any loss of fluid. Maternal Data Information DINA Calculator Estimated Delivery Date Method Current WG Current Estimate 09/23/23 Manual 36w 1d PFSH PFSH Medical History Placental abnormality depression Subclinical hypothyroidism Anemia affecting Depression Anxiety Home Medications ?Medication ?Instructions ?Recorded ?Last Taken ?Type 103-folic acid 400 2 tab PO DAILY 06/21/18 08/26/23 History mcg-omeg3 32.5 mg-dha-fish oil chew tablet ( with DHA and Folic Acid) ferrous sulfate 325 mg (65 mg 325 mg PO BID anemia 09/08/21 08/25/23 History iron) tablet (iron) Allergy/AdvReac Type Severity Reaction Status Date / Time No Known Allergies Allergy Verified 08/26/23 22:40 Surgical History Previous section History of cholecystectomy Social History Smoking Status: Never smoker History Elective abortions Hx Para 3 Spontaneous abortions Hx # Term Pregnancies Ectopic pregnancies Hx # Pregnancies Multiple births # of living children ROS Eyes Eyes: Denies blurry vision, change in vision or spots in vision ENT HEENT: Denies dizziness or headache(s) Cardiovascular Cardiovascular: Denies abdominal pain, chest pain or dyspnea Respiratory/Chest Respiratory/Chest: Denies cough, dyspnea, shortness of breath at rest or shortness of breath with exertion Gastrointestinal Gastrointestinal: Denies abdominal pain, diarrhea or vomiting Genitourinary Genitourinary: Denies change in urinary stream, difficulty urinating or dysuria Musculoskeletal Musculoskeletal: Reports none Integumentary Integumentary: Denies rash Neurologic Neurologic: Denies dizziness, headache(s), memory loss or weakness Physical Exam Const alert and no apparent distress General Appearance: cooperative and comfortable Exam Limitations: no limitations HEENT normocephalic Eyes General Eye: normal appearance of both eyes Neck full ROM General: normal visual inspection Chest Chest: symmetrical chest wall rise Resp normal respiratory effort and normal air movement Effort and Inspection: symmetric chest movement Auscultation: clear to auscultation bilaterally Cardio regular rate and regular rhythm GI normal to inspection, nondistended, normoactive bowel sounds Back/Spine normal ROM Extremity full ROM and no calf tenderness General Extremity: normal exam except as noted Skin no rashes or lesions noted Neuro CN's II-XII intact bilaterally Psych mental status grossly normal NST FHR Rate Baby A Baseline: 130 Variability:: Moderate Accelerations:: 15 x 15 Decelerations:: None NST Reactive:: Yes Uterine Activity:: Irregular Assessment & Plan (1) , delivered: (2) False labor, antepartum: (3) History of section: (4) 36 weeks gestation of : (5) Dehydration: (6) Back pain: PLAN: Plan Start IV and give 1000 ml bolus of LR UA- positive for infection- Start Macrobid 100 mg PO BID x 7 days- Extended monitoring CE - 3/50/-3- unchanged Patient reports feeling better after IV fluids- no current cramps or pain D/C home with follow up in office this week
--- NOTE | 2023-08-27 07:17 | DCINST_ITS ---
Discharge Instructions Diet Discharge Diet: No restrictions Activity May resume sexual activity in: 6-8 weeks Weight Bearing Status: Weight bearing as tolerated Dressing / Incision Call your doctor if you observe: Fever of 101 or Higher, Inability to urinate, Using more than 1 pad per hour, Shortness of breath, Chest pain, Calf discomfort and Uncontrolled pain Follow Up Care Test Results: Test results from this visit will be discussed in further detail at your follow- up appointment, if applicable. Discharge Plan Admission Reason For Visit: R/O LABOR Attending Provider: Rhianna Flores Instructions Patient Instructions: Kick Counts, ED False Labor, OB Triage: Return to Hospital or Notify Physician if you Experience: Discharge Orders/Prescriptions Prescriptions: New nitrofurantoin monohyd/m-cryst 100 mg Capsule 100 mg PO BID 7 Days Qty: 14 0RF Continued with DHA-Folic Acid 1 EACH tablet,chewable 2 tab PO DAILY ferrous sulfate [iron] 325 mg (65 mg iron) Tablet 325 mg PO BID Disposition Patient Disposition: Home, Self Care
== END 2023-08-27 06:38 | disposition home or self-care (01) ==
LOC: WPOUT 22:11 → WP 22:16
PROVIDERS: Referring Provider Advanced Practice Midwife; Visit Provider Advanced Practice Midwife
DX: O99.891 Other specified diseases and conditions complicating pregnancy (principal); O47.03 False labor before 37 completed weeks of gestation, third trimester; Z3A.36 36 weeks gestation of pregnancy; M54.9 Dorsalgia, unspecified; O99.283 Endocrine, nutritional and metabolic diseases complicating pregnancy, third trimester; E86.0 Dehydration
CPT/HCPCS: 96360; 96361; 59025; 59050; 81002; 85025; 87086; 87088; 93005; 99221; J7120; G0378

== ENCOUNTER 2023-09-11 13:52 | Inpatient (IN) | payer MEDICAID, SELFPAY ==
[2023-09-11] VITALS (39 sets, daily range): BP systolic 94–118; BP diastolic 52–76; PULSE 73–102; RESP 14–16; TEMP 36.7–37.2; O2SAT 94–100; BMI 22.6
[2023-09-11 14:31] LABS: Absolute Lymphocyte Count 1.66 X10^3/uL (0.83-4.51); Absolute Neutrophil Count 8.4 X10^3/uL (2.0-7.7); Basophil# 0.03 X10^3/uL; Basophil% 0.3 % (0-1); Eosinophils% 0.9 % (0-5); Hematocrit 34.9 % (37-47); Hemoglobin 10.4 g/dL (12.0-15.0); Lymphocyte # 1.66 X10^3/ul (0.83-4.51); Lymphocyte % 15.3 % (19-41); Mean Corp Hgb Conc 29.8 g/dL (32-36); Mean Corpuscular Hgb 22.7 pg (27.0-32.0); Mean Platelet Vol. 10.4 fl (6.2-12.0); Monocyte# 0.63 X10^3/uL; Monocyte% 5.8 % (0-10); NRBC Flagged by Analyzer 0 % (0-5); Neutrophil # 8.39 X10^3/uL (2.7-7.7); Neutrophil % 77.3 % (47-70); Platelet Count 341 K/mm3 (150-450); RBC Distribution Width CV 15.9 % (11.6-14.6); RBC Distribution Width SD 43.5 fl (35.1-43.9); Red Blood Count 4.59 M/mm3 (4.2-5.4); White Blood Count 10.9 K/mm3 (4.4-11.0)
[2023-09-11] MEDS: Lactated Ringers 1,000 ML 200 ML IV (15:10)
[2023-09-11] MEDS: Lactated Ringers 1,000 ML 999 ML IV (15:11)
--- NOTE | 2023-09-11 15:13 | HP.PCM.OB_ITS ---
HPI - General General Date of Admission: 09/11/23 HPI Narrative JENNY DASH, is a 28 F who presents in active labor at 38w2d. History of C/S with successful x3. Requesting TOLAC today. History of IUGR, anemia in , depression in , depression, asthma, and labor with her 3rd and 4th that ended in term delivery. Maternal Data Information DINA Calculator Estimated Delivery Date Method Current WG Current Estimate 09/23/23 Manual 38w 2d [facility] Medical History (Updated 09/11/23 @ 15:18 by Susy Conrad CNM) depression Placental abnormality depression Subclinical hypothyroidism Anemia affecting Depression Anxiety Home Medications ?Medication ?Instructions ?Recorded ?Last Taken ?Type 103-folic acid 400 2 tab PO DAILY 06/21/18 09/10/23 21:00 History mcg-omeg3 32.5 mg-dha-fish oil 1 TAB chew tablet ( with DHA and Folic Acid) ferrous sulfate 325 mg (65 mg 325 mg PO BID anemia 09/08/21 09/10/23 21:00 History iron) tablet (iron) 325 mg Allergy/AdvReac Type Severity Reaction Status Date / Time No Known Allergies Allergy Verified 09/11/23 12:35 Surgical History Previous section History of cholecystectomy Social History Smoking Status: Never smoker History Elective abortions Hx Para 4 Spontaneous abortions Hx # Term Pregnancies Ectopic pregnancies Hx # Pregnancies Multiple births # of living children NST FHR Rate Baby A Baseline: 125 Variability:: Moderate Accelerations:: 15 x 15 Decelerations:: None NST Reactive:: Yes FHR Category:: Category I Uterine Activity:: every 2-3 minutes, strong ROS Constitutional Constitutional: Reports systems reviewed and no addt'l complaints, except as documented; Denies headache(s) Eyes Eyes: Denies acute decrease in peripheral vision, blurry vision or change in vision ENT HEENT: Reports systems reviewed and no addt'l complaints, except as documented Cardiovascular Cardiovascular: Denies chest pain or dizziness Respiratory/Chest Respiratory/Chest: Denies cough, dyspnea, dyspnea on exertion, shortness of breath at rest or shortness of breath with exertion Gastrointestinal Gastrointestinal: Denies abdominal pain, diarrhea, nausea or vomiting Genitourinary Genitourinary: Denies abdominal discomfort Musculoskeletal Musculoskeletal: Denies limited range of motion Integumentary Integumentary: Reports systems reviewed and no addt'l complaints, except as documented Neurologic Neurologic: Reports systems reviewed and no addt'l complaints, except as documented Psychiatric Psychiatric: Reports systems reviewed and no addt'l complaints, except as documented Endocrine Endocrinology: Reports systems reviewed and no addt'l complaints, except as documented Hematologic/Lymphatic Hematologic/Lymphatic: Reports systems reviewed and no addt'l complaints, except as documented Allergic/Immunologic Allergic/Immunologic: Reports systems reviewed and no addt'l complaints, except as documented Vital Signs Vital Signs Vital Signs: 09/11/23 12:41 09/11/23 12:41 09/11/23 12:42 Pulse Rate 85 84 Blood Pressure 109/68 BP Systolic 109 BP Diastolic 68 Pulse Ox 09/11/23 12:42 Pulse Rate Blood Pressure BP Systolic BP Diastolic Pulse Ox 98 Weight Weight: 147 lb 0.773 oz Body Mass Index (BMI) 22.6 Physical Exam Const alert and oriented x3 General Appearance: cooperative Orientation / Consciousness: awake, oriented to person, oriented to place and oriented to time Exam Limitations: no limitations HEENT normocephalic Head and Scalp: normal to inspection, normocephalic and atraumatic Face and Sinus: normal facial exam Eyes General Eye: normal appearance of both eyes Neck full ROM Chest Chest: symmetrical chest wall rise Resp normal respiratory effort and normal air movement Auscultation: clear to auscultation bilaterally Cardio regular rate, regular rhythm, S1 normal heart sound, S2 normal heart sound, no murmurs, no rub, no gallops and no clicks GI normal to inspection, nondistended, normoactive bowel sounds and non-tender appearance of the vagina normal Bladder / Kidney Exam: no CVA tenderness Back/Spine normal ROM Extremity normal to inspection and full ROM Skin no rashes or lesions noted Neuro oriented x3, CN's II-XII intact bilaterally and moves all extremities Sensorium / Orientation: awake, alert and oriented to person Motor Exam: clonus absent Deep Tendon Reflexes: Rt Patellar (L4): 2+ and Lt Patellar (L4): 2+ Labs Labs Labs: Blood Type A POSITIVE Antibody Screen NEGATIVE Hct 34.9 % (37-47) L Hgb 10.4 g/dL (12.0-15.0) L Obstetrics Ultrasound Syphilis Total Ab Pending Rubella IgG Antibody 115.6 IU/mL Hep Bs Antigen Non-Reactive (Nonreactive) Hepatitis C Antibody Non-Reactive (Nonreactive) Hepatitis C Ab (EIA) 0.2 s/co ratio (0.0-0.9) HIV 1&2 Antibody Non-Reactive (Nonreactive) Glucose 1 Hr 50 gm 115 mg/dL (70-140) Group B Strep DNA Negative (Negative) Rhogam given: No Assessment & Plan (1) History of section: (2) History of : (3) Encounter for trial of labor: (4) Active labor at term: (5) 38 weeks gestation of : (6) Depression affecting : (7) History of depression: (8) History of prior with IUGR : PLAN: Plan 1) Admit to labor and delivery 2) Routine labs 3) Continuous EFM 4) consent form reviewed and signed after discussion of risks, benefits, and alternatives, would like to proceed. 5) Requesting epidural for pain management 6) collaborative physician and updated on patient status, above assessment and plan. Immediately available for .
[2023-09-11 15:41] LABS: Syphilis Antibodies Non-reactive
[2023-09-11] MEDS: fentaNYL-bupivacaine (epidural) 100 ML BAG EPIDURAL (16:10)
[2023-09-11] MEDS: Oxytocin 15 Units/NS 250ml 15 UNITS/250 ML IV.SOLN 334 UNITS IV (17:09)
[2023-09-11] MEDS: Oxytocin 15 Units/NS 250ml 15 UNITS/250 ML IV.SOLN 83 UNITS IV (17:53)
--- NOTE | 2023-09-11 17:59 | EX.PCM.OBRPT ---
Assessment & Plan (1) Vaginal delivery: Maternal Data Information DINA Calculator Estimated Delivery Date Method Current WG Current Estimate 09/23/23 Manual 38w 2d Vaginal Delivery Maternal Presentation Maternal Presentation: Active Labor Operative Information Date of Procedure: 09/11/23 Pre-Operative Diagnosis: Active labor at term, TOLAC Post-Operative Diagnosis: Surgery / Procedure Performed: Type of Anesthesia: Epidural Estimated Blood Loss: 300 ml Time of Delivery: 17:00 Findings Description of Procedure: Progressed to complete with urge to push. Epidural for pain management. of viable female over intact perineum. APGARS 8,9 respectively. head delivered with body immediately forthcoming. CANx1. Placed on maternal abdomen, strong cry. Mouth and nares suctioned for secretions. Pitocin started for active 3rd stage management. Cord doubly clamped and cut by FOB after pulsations ceased, delayed cord clamping. Placenta delivered intact via cuellar, 3 vessel cord intact. Perineum inspected and revealed intact. Fundus firm and hemostasis achieved. EBL 300ml. Mom and baby stable, planning to breastfeed. Family bonding well. notified of delivery. Presentation: Vertex and GISSELL Amniotic Membrane Rupture Type: Artificial Amniotic Fluid Description: Clear Placental Delivery Description: Expressed Placenta Disposition: [facility] Cord Vessel Description: 3 Vessels Cord Entanglement: Around neck x 1, loose Nuchal Cord Compression: Without compression A Gender: Female (1 minute): 8 (5 minute): 9 Delayed Cord Clamping: Yes Post Vaginal Delivery Medications Given After Delivery: IV Pitocin Episiotomy Description: None Laceration: None Complication Complications: None
[2023-09-12 03:33] VITALS: BP 106/65; PULSE 84; RESP 14; TEMP 36.5; O2SAT 98
[2023-09-12] MEDS: 0.9% Saline Lock 10 ML Syringe IV (05:26)
[2023-09-12 05:51] LABS: Absolute Lymphocyte Count 1.74 X10^3/uL (0.83-4.51); Absolute Neutrophil Count 8.6 X10^3/uL (2.0-7.7); Basophil# 0.04 X10^3/uL; Basophil% 0.4 % (0-1); Eosinophil# 0.14 X10^3/uL; Eosinophils% 1.2 % (0-5); Hematocrit 27.3 % (37-47); Hemoglobin 8.2 g/dL (12.0-15.0); Lymphocyte # 1.74 X10^3/ul (0.83-4.51); Lymphocyte % 15.3 % (19-41); Mean Corpuscular Hgb 22.5 pg (27.0-32.0); Mean Corpuscular Volume 74.8 fL (81-99); Mean Platelet Vol. 10.7 fl (6.2-12.0); Monocyte% 6.2 % (0-10); NRBC Flagged by Analyzer 0 % (0-5); Neutrophil # 8.64 X10^3/uL (2.7-7.7); Neutrophil % 76.2 % (47-70); Platelet Count 265 K/mm3 (150-450); RBC Distribution Width CV 15.9 % (11.6-14.6); Red Blood Count 3.65 M/mm3 (4.2-5.4); White Blood Count 11.3 K/mm3 (4.4-11.0)
--- NOTE | 2023-09-12 07:05 | PCM.PN.OB ---
Subjective Subjective Doing well per patient and nursing staff. Ambulating and taking PO without difficulty. Voiding and passing flatus. Pain controlled. , services for assistance. Denies headache, visual changes, chest pain, shortness of breath, leg pain or increased bleeding. Lochia normal. Objective Data Objective Data Vital Signs: Vital Signs Temp Pulse Resp BP Pulse Ox O2 Del Method 97.7 F L 84 14 106/65 98 Room Air 09/12/23 03:33 09/12/23 03:33 09/12/23 03:33 09/12/23 03:33 09/12/23 03:33 09/12/23 03:33 Oxygen Delivery Method Room Air Weight: 147 lb 0.773 oz Body Mass Index (BMI) 22.6 Intake & Output: Intake and Output for Last 24 Hours 09/10/23 09/11/23 09/12/23 23:59 23:59 23:59 Intake Total 1896.67 / 1896.67 Output Total 725 / 725 Balance 1171.67 / 1171.67 Lab / Micro Data 09/12/23 05:30 Labs: Laboratory Results - last 24 hr 09/11/23 14:20: WBC 10.9, RBC 4.59, Hgb 10.4 L, Hct 34.9 L, MCV 76.0 L, MCH 22.7 L, MCHC 29.8 L, RDW Std Deviation 43.5, RDW Coeff of [place]av[place] 15.9 H, Plt Count 341, MPV 10.4, Immature Gran % (Auto) 0.400, Neut % (Auto) 77.3 H, Lymph % (Auto) 15.3 L, [place] % (Auto) 5.8, Eos % (Auto) 0.9, Baso % (Auto) 0.3, Absolute Neuts (auto) 8.4 H, Absolute Lymphs (auto) 1.66, Nucleated RBC % 0, Syphilis Total Ab Non-reactive, Blood Type A POSITIVE, Antibody Screen NEGATIVE 09/12/23 05:30: WBC 11.3 H, RBC 3.65 L, Hgb 8.2 L, Hct 27.3 L, MCV 74.8 L, MCH 22.5 L, MCHC 30.0 L, RDW Std Deviation 43.0, RDW Coeff of [place]av[place] 15.9 H, Plt Count 265, MPV 10.7, Immature Gran % (Auto) 0.700, Neut % (Auto) 76.2 H, Lymph % (Auto) 15.3 L, [place] % (Auto) 6.2, Eos % (Auto) 1.2, Baso % (Auto) 0.4, Absolute Neuts (auto) 8.6 H, Absolute Lymphs (auto) 1.74, Nucleated RBC % 0 ROS Constitutional Constitutional: Reports systems reviewed and no addt'l complaints, except as documented; Denies headache(s) Eyes Eyes: Denies acute decrease in peripheral vision, blurry vision or change in vision ENT HEENT: Reports systems reviewed and no addt'l complaints, except as documented Cardiovascular Cardiovascular: Denies chest pain or dizziness Respiratory/Chest Respiratory/Chest: Denies cough, dyspnea, dyspnea on exertion, shortness of breath at rest or shortness of breath with exertion Gastrointestinal Gastrointestinal: Denies abdominal pain, diarrhea, nausea or vomiting Genitourinary Genitourinary: Denies abdominal discomfort Musculoskeletal Musculoskeletal: Denies limited range of motion Integumentary Integumentary: Reports systems reviewed and no addt'l complaints, except as documented Neurologic Neurologic: Reports systems reviewed and no addt'l complaints, except as documented Psychiatric Psychiatric: Reports systems reviewed and no addt'l complaints, except as documented Endocrine Endocrinology: Reports systems reviewed and no addt'l complaints, except as documented Hematologic/Lymphatic Hematologic/Lymphatic: Reports systems reviewed and no addt'l complaints, except as documented Allergic/Immunologic Allergic/Immunologic: Reports systems reviewed and no addt'l complaints, except as documented Physical Exam Const alert and oriented x3 General Appearance: cooperative Orientation / Consciousness: awake, oriented to person, oriented to place and oriented to time Exam Limitations: no limitations HEENT normocephalic Head and Scalp: normal to inspection, normocephalic and atraumatic Face and Sinus: normal facial exam Eyes General Eye: normal appearance of both eyes Neck full ROM Chest Chest: symmetrical chest wall rise Resp normal respiratory effort and normal air movement Auscultation: clear to auscultation bilaterally Cardio regular rate, regular rhythm, S1 normal heart sound, S2 normal heart sound, no murmurs, no rub, no gallops and no clicks GI normal to inspection, nondistended, normoactive bowel sounds and non-tender GI Narrative: fundus firm 2 below U appearance of the vagina normal Bladder / Kidney Exam: no CVA tenderness Back/Spine normal ROM Extremity normal to inspection and full ROM Skin no rashes or lesions noted Neuro oriented x3, CN's II-XII intact bilaterally and moves all extremities Sensorium / Orientation: awake, alert and oriented to person Motor Exam: clonus absent Deep Tendon Reflexes: Rt Patellar (L4): 2+ and Lt Patellar (L4): 2+ Assessment & Plan (1) Vaginal delivery: (2) Acute blood loss anemia: (3) History of depression: (4) Lactating mother: (5) , delivered: (6) History of section: PLAN: Plan 1) Routine PP care, PPD#1 2) Pain controlled 3) Vitals stable 4) Hgb 10.4 to 8.2, Iron sucrose 200mg IV x1. D/C home PO iron supplement 5) D/C home. Follow up in 2 weeks and 6 weeks PP
--- NOTE | 2023-09-12 07:10 | DS.PCM_ITS ---
Providers Date of Admission: 09/11/23 Primary Care Physician: No Primary Care Phys Reason For Visit: LABOR Diagnosis Discharge Diagnosis (1) Vaginal delivery: Status: Acute Code(s): O80 - Encounter for full-term uncomplicated delivery (2) Acute blood loss anemia: Status: Acute Code(s): D62 - Acute posthemorrhagic anemia (3) History of depression: Status: Acute Code(s): Z87.59 - Personal history of other complications of , childbirth and the puerperium; Z86.59 - Personal history of other mental and behavioral disorders (4) Lactating mother: Status: Acute Code(s): Z39.1 - Encounter for care and examination of lactating mother (5) , delivered: Status: Acute Code(s): O34.219 - Maternal care for unspecified type scar from previous delivery (6) History of section: Status: Acute Code(s): Z98.891 - History of uterine scar from previous surgery Plan 1) Routine PP care, PPD#1 2) Pain controlled 3) Vitals stable 4) Hgb 10.4 to 8.2, Iron sucrose 200mg IV x1. D/C home PO iron supplement 5) D/C home. Follow up in 2 weeks and 6 weeks PP Medications at Discharge Home Medications 103-folic acid 400 mcg-omeg3 32.5 mg-dha-fish oil chew tablet ( with DHA and Folic Acid) 2 tab PO DAILY 06/21/18 ferrous sulfate 325 mg (65 mg iron) tablet (iron) 325 mg PO BID anemia 09/08/21 acetaminophen 500 mg tablet 1,000 mg (2 x 500 mg) PO Q6H PRN PRN Pain 1-10 Or Fever #0 tabs 09/12/23 naproxen 500 mg tablet 500 mg PO Q8H PRN PRN Pain Score 1-10 #0 tabs 09/12/23 Hospital Course Summary of Care Provided Minutes Spent on Discharge: 15 Weight / BMI Weight Weight: 147 lb 0.773 oz Body Mass Index (BMI) 22.6 ABG / Lab / Microbiology Data 09/12/23 05:30 Laboratory: Laboratory Results - last 24 hr 09/11/23 14:20: WBC 10.9, RBC 4.59, Hgb 10.4 L, Hct 34.9 L, MCV 76.0 L, MCH 22.7 L, MCHC 29.8 L, RDW Std Deviation 43.5, RDW Coeff of Tavon 15.9 H, Plt Count 341, MPV 10.4, Immature Gran % (Auto) 0.400, Neut % (Auto) 77.3 H, Lymph % (Auto) 15.3 L, [place] % (Auto) 5.8, Eos % (Auto) 0.9, Baso % (Auto) 0.3, Absolute Neuts (auto) 8.4 H, Absolute Lymphs (auto) 1.66, Nucleated RBC % 0, Syphilis Total Ab Non-reactive, Blood Type A POSITIVE, Antibody Screen NEGATIVE 09/12/23 05:30: WBC 11.3 H, RBC 3.65 L, Hgb 8.2 L, Hct 27.3 L, MCV 74.8 L, MCH 22.5 L, MCHC 30.0 L, RDW Std Deviation 43.0, RDW Coeff of Tavon 15.9 H, Plt Count 265, MPV 10.7, Immature Gran % (Auto) 0.700, Neut % (Auto) 76.2 H, Lymph % (Auto) 15.3 L, [place] % (Auto) 6.2, Eos % (Auto) 1.2, Baso % (Auto) 0.4, Absolute Neuts (auto) 8.6 H, Absolute Lymphs (auto) 1.74, Nucleated RBC % 0 D/C Instructions Discharge Diet: No restrictions Discharge Activity: Return to Normal Activity May resume sexual activity in: 6 weeks Weight Bearing Status: Full weight bearing Lifting Restricted to (Lbs): 20 Call your doctor if you observe: Fever of 101 or Higher, Inability to urinate, Inability to have a bowel movement, Using more than 1 pad per hour, Chest pain, Increased palpitations (irregular heartbeat), Calf discomfort and Uncontrolled pain Meaningful Use Info Meaningful Use Meaningful Use Diagnoses (Choose all that apply): None applicable Ischemic Stroke Statin Dosing Therapy Reference: STATIN DOSE THERAPY REFERENCE: * Patients > 75 years receive moderate or high dose statin therapy. * Patients 75 years or YOUNGER should receive HIGH intensity statin dose unless contraindicated. You will be required to document reason for non-treatment if statin daily dose does not meet guidelines. HIGH DOSE STATIN THERAPY DAILY Atorvastatin > than or = to 40 mg Rosuvastatin > than or = to 20 mg Amlodipine + Atorvastatin > than or = to 2.5/40 mg Ezetimibe + Simvastatin 10/80 mg Simvastatin 80mg Discharge Plan Admission Admit Date/Time: 09/11/23 13:52 Primary Reason for Your Visit: Attending Provider: Susy Conrad Primary Care Provider: Naomy Clemons Primary Discharge Orders/Prescriptions Prescriptions: New acetaminophen 500 mg Tablet 1,000 mg PO Q6H PRN PRN (Reason: Pain 1-10 Or Fever) Qty: 0 0RF naproxen 500 mg Tablet 500 mg PO Q8H PRN PRN (Reason: Pain Score 1-10) Qty: 0 0RF Continued with DHA-Folic Acid 1 EACH tablet,chewable 2 tab PO DAILY ferrous sulfate [iron] 325 mg (65 mg iron) Tablet 325 mg PO BID Referrals / Follow Up: Care Physician,No Primary [Primary Care Provider] - Susy Conrad CNM [Med Staff - Adv Practice Prof] - (Follow up in 2 weeks for virtual and 6 weeks for PP visit) Disposition Disposition (needs filled in before D/C Order can be placed): Home, Self Care
[2023-09-12] MEDS: Iron Sucrose Complex 200 MG in 0.9% Normal Saline (100mL Bag) 100 ML 220 MG IV (08:25)
[2023-09-12 09:23] VITALS: BP 112/72; PULSE 78; RESP 16; TEMP 36.8; O2SAT 99
[2023-09-12 13:00] VITALS: BP 114/80; PULSE 92; RESP 16; TEMP 36.7; O2SAT 99
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
[2023-09-12 16:43] VITALS: BP 111/77; PULSE 88; RESP 16; TEMP 36.9; O2SAT 99
== END 2023-09-12 18:05 | disposition home or self-care (01) | DRG 560 ==
LOC: WPOUT 13:57 → WP 14:21
PROVIDERS: Admitting Provider Advanced Practice Midwife; Visit Provider Advanced Practice Midwife
DX: O34.219 Maternal care for unspecified type scar from previous cesarean delivery (principal); Z37.0 Single live birth; D62 Acute posthemorrhagic anemia; O69.81X0 Labor and delivery complicated by cord around neck, without compression, not applicable or unspecified; Z3A.38 38 weeks gestation of pregnancy; O90.81 Anemia of the puerperium
CPT/HCPCS: 59025; 59050; 85025; 86780; 86850; 86900; 86901; 99221; J1756; J7120; A4216; G0378